=== PATIENT | male | born 1945 | race Caucasian/White ===

== ENCOUNTER 2022-03-13 15:49 | Outpatient (CLI) | payer MEDICARE, OTHER, SELFPAY ==
[2022-03-13 21:45] LABS: Digoxin* < 0.4 ng/mL (0.8-2.0)
== END 2022-03-13 15:50 | disposition home or self-care (01) ==
LOC: LKVREF 15:50
PROVIDERS: PCP Family Medicine; Visit Provider Family Medicine
DX: I48.0 Paroxysmal atrial fibrillation (principal)
CPT/HCPCS: 80162

== ENCOUNTER 2022-03-23 09:01 | Outpatient (CLI) | payer MEDICARE, OTHER, SELFPAY ==
--- NOTE | 2022-03-23 09:15 | FL_ITS ---
Patient: BARTOLOME SIBLEY Facility:?[facility] Patient ID:?[id number] Site Patient ID:?[id number]. Site :?[id number] Study:?XRay-ST Neck MODIFIED BARIUM SWALLOW - DR GRIJALVA TO R-03/23/2022 9:39:14 AM Ordering Physician:EDWARDO Final Report: INDICATION: FLUID ASPIRATION TECHNIQUE: Modified barium swallow. Fluoroscopic time 53 seconds. COMPARISON: None FINDINGS/IMPRESSION: Anatomical structures are normal. Swallowing mechanism appears within normal limits. No episodes of penetration or aspiration. No significant findings. Dictated by Ernst Grijalva MD @ 03/23/2022 9:44:52 AM Signed by:?Ernst Grijalva MD @03/23/2022 9:44:52 AM (Electronic Signature)
--- NOTE | 2022-03-23 10:05 | SLP.EVAL ---
Dr. Simpson Please review, sign and return Thank you Ashwini Mesa MICROMATIC HONE OPERATOR MICROMATIC HONE OPERATOR Eval MICROMATIC HONE OPERATOR Eval Start: 03/23/22 09:53 Freq: Status: Active Protocol: Document 03/23/22 09:54 Kady (Rec: 03/23/22 10:04 Kady [id number]) E-signed By Ashwini Mesa CCC, MICROMATIC HONE OPERATOR MICROMATIC HONE OPERATOR System Review History & Reason For Referral Type of Speech Evaluation Modified Barium Swallow Evaluation Rehabilitation Order Evaluation Date of Order 03/13/22 Reason for Referral fluid asperation Treatment Diagnosis Dysphagia Patient Orientation Orientation & Mental Status Within normal limits MICROMATIC HONE OPERATOR Initial Assessment/POC Subjective Information Subjective/Pain Comment Patient independently ambulated to the xray suite with the use of his cane. He is pleasant and cooperative. Assessment & Impression Assessment/Impression Patient is a 76 year old male referred for a modified barium swallow study due to intermittent choking episodes with water or iced tea. He reports it does not happen with food. He reports it started happening about 3 months ago after he had hip surgery. He also reports that after surgery he started to have reflux and started to belch. He reported this to his surgeon who said this was not uncommon at all. ORAL MOTOR FUNCTION AND DENTITION Patient exhibits adequate tongue and lip movement and adequate natural dentition. THIN LIQUID Patient took sips of thin liquid by cup. There was flash penetration that was ejected and no aspiration occurred on any trial of thin liquid. PUREE Patient able to manipulate and swallow without penetration, aspiration or residue. MUFFIN AND COOKIE WITH BARIUM PUREE Patient given separate trials of muffin and cookie each mixed with barium. He was able to chew and swallow without penetration, aspiration or residue. IMPRESSIONS AND RECOMMENDATIONS Patient exhibits some flash penetration with thin liquids that is ejected well each time . No aspiration occurred with any consistency. Recommended patient take small sips and avoid any distraction when drinking. It is unclear what is causing these episodes. Therapist Signature & License # I Certify That Therapy Services Provided Therapist Signature & License Number Ashwini Mesa CCC-MICROMATIC HONE OPERATOR,# [id number] Physician Signature Signature of Physician Indicates Medically Needed Services Physician Signature & Date Required Please Sign/Date Here Speech/Language Pathology Billing Units Billing Units Eval Swallow Motion Fluoro 1
== END 2022-03-23 09:02 | disposition home or self-care (01) ==
LOC: RAD 09:03
PROVIDERS: PCP Family Medicine; Visit Provider Family Medicine
DX: T17.908A Unspecified foreign body in respiratory tract, part unspecified causing other injury, initial encounter (principal)
CPT/HCPCS: 74230; 92611

== ENCOUNTER 2022-08-26 10:25 | Emergency (ER) | payer MEDICARE, OTHER, SELFPAY ==
[2022-08-26 11:07] VITALS: BP 120/82; PULSE 114; RESP 18; TEMP 36.3; O2SAT 98; BMI 28.2
--- NOTE | 2022-09-02 04:14 | ED_ITS ---
HPI - Eye Problem General Chief complaint: Eye Problems Stated complaint: LT eye bleeding and INR high Time Seen by Provider: 08/26/22 11:44 History of Present Illness HPI Narrative: 76-year-old man presents to the emergency department with spouse with concern of bleeding in his left eye. Painless. Eye movement is not make it hurt more. No visual disturbance. Woke with this today. Is anticoagulated with Coumadin for atrial fibrillation. INR he says he has been trending up; today was measured at 3.3. He does get lab measurements as well as does some home monitoring. There is no known trauma. Mr. Arriaga keeps exceptional track of his INR and Coumadin dosing. Has initiated chemotherapy for lymphoma. Related Data Home Medications Medication Instructions Recorded Confirmed Diabetic Test Strips 01/09/22 08/15/22 acetaminophen 650 mg 1,300 mg PO BID 01/09/22 08/15/22 tablet,extended release diclofenac sodium 1 % topical gel 2 g topical QID 03/13/22 08/15/22 (Voltaren Arthritis Pain) multivitamin (Daily Multi-Vitamin 1 tab PO QDAY 03/13/22 08/15/22 tablet) undecylenic acid 25 % topical 1 applic topical BID 03/13/22 08/15/22 solution (Fungi-Nail) insulin glargine 100 unit/mL (3 90 unit subcut .Bedtime 05/22/22 08/15/22 mL) subcutaneous pen aspirin 81 mg chewable tablet 81 mg PO QDAY 07/07/22 08/15/22 clopidogrel 75 mg tablet 75 mg PO QDAY 07/07/22 08/15/22 ketoconazole 2 % topical cream 1 applic topical QDAY 07/07/22 08/15/22 nitroglycerin 0.4 mg sublingual 0.4 mg sublingual 07/11/22 08/15/22 tablet acyclovir 400 mg tablet 400 mg PO BID 08/15/22 08/15/22 allopurinol 300 mg tablet 300 mg PO QDAY 08/15/22 08/15/22 blood sugar diagnostic (Anytime DDuch #10 ea 08/15/22 08/15/22 Verio test strips) lancets 33 gauge (Anytime DDuch Low #100 ea 08/15/22 08/15/22 Plus Lancet) ondansetron HCl 8 mg tablet 8 mg PO .PRN PRN 08/15/22 08/15/22 prochlorperazine maleate 5 mg 5 mg PO PRN 08/15/22 08/15/22 tablet Previous Rx's Medication Instructions Recorded hydrochlorothiazide 12.5 mg capsule 25 mg PO DAILY #180 caps 02/17/22 losartan 100 mg tablet 100 mg PO DAILY #90 tabs 03/31/22 pen needle, diabetic 32 gauge x #100 ea 04/14/2232 (Easy Comfort Pen Zwingle) lancets (Fingerstix Lancets) #200 ea 06/07/22 carvedilol 6.25 mg tablet (Coreg) 6.25 mg PO BID #180 tabs 07/26/22 furosemide 20 mg tablet (Lasix) 20 - 40 mg PO QAM PRN edema #60 07/28/22 tabs amoxicillin 500 mg capsule See Rx Instructions .Route 07/31/22 .COMPLEX #4 caps warfarin 5 mg tablet See Rx Instructions .Route 08/29/22 .COMPLEX #45 tabs Allergies Allergy/AdvReac Type Severity Reaction Status Date / Time lovastatin Allergy Severe Throat and Verified 08/15/22 15:33 chest tightness niacin Allergy Severe Throat and Verified 08/15/22 15:33 chest tightness duloxetine Allergy Intermediate throat and Verified 08/15/22 15:33 chest tightness sertraline Allergy Intermediate Dizzy, Verified 08/15/22 15:33 headaches and not right in the head methyldopa Allergy Mild Chills, Verified 08/15/22 15:33 fever Vjtysrx-RNM-ReQ Reductase Allergy Verified 08/15/22 15:33 Inhibitor COVID-19 (Adenovirus) Vaccine Allergy Severe Myocarditis Uncoded 08/15/22 15:33 paper tape AdvReac Severe Takes skin Uncoded 08/15/22 15:33 off Review of Systems Status of ROS: Reports: 6 or more systems reviewed and unremarkable except as noted in History and below [facility] Medical History Abdominal pain Edema of lower extremity Fatigue Fever Lymphoma Narcolepsy 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 Osteoarthritis of multiple joints Pleural effusion Pleural effusion Serum creatinine raised Thrombocytopenia (~08/17/15) Weight loss Surgical History History of carpal tunnel surgery History of discectomy (~08/2016) History of lumbar fusion (09/09/12) History of nasal septoplasty History of umbilical hernia repair Status post tonsillectomy and adenoidectomy Status post total hip replacement, 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 Of good energy. Head is atraumatic. Cranial nerves 2-12 look to be intact. PERRLA. Extraocular movements are full appear to be nonpainful. There is a mild but somewhat expansive medial left scleral subconjunctival hemorrhage. Const: Documenting provider has reviewed patient's vital signs: yes Course Vital Signs Vital signs: Initial Vital Signs Temperature 97.3 F L 08/26/22 11:07 Temperature Source Temporal Artery Scan 08/26/22 11:07 Pulse Rate 114 H 08/26/22 11:07 Respiratory Rate 18 08/26/22 11:07 Blood Pressure 120/82 08/26/22 11:07 Blood Pressure Mean 94 08/26/22 11:07 Blood Pressure Position Sitting 08/26/22 11:07 Pulse Oximetry 98 08/26/22 11:07 Oxygen Delivery Method 08/26/22 11:07 Vital Signs Temperature 97.3 F L 08/26/22 11:07 Pulse Rate 114 H 08/26/22 11:07 Respiratory Rate 18 08/26/22 11:07 Blood Pressure 120/82 08/26/22 11:07 Pulse Oximetry 98 08/26/22 11:07 Oxygen Delivery Method 08/26/22 11:07 Temperature 97.3 F L 08/26/22 11:07 Pulse Rate 114 H 08/26/22 11:07 Respiratory Rate 18 08/26/22 11:07 Blood Pressure 120/82 08/26/22 11:07 Pulse Oximetry 98 08/26/22 11:07 Oxygen Delivery Method 08/26/22 11:07 MDM - Eye Problem MDM Narrative Medical decision making narrative: And think any intervention is needed on this subconjunctival hemorrhage. This is not lateral and INR is not extremely high. We discussed management of INR I think related more to escalating/trending dosing as opposed to reversal. There was discussion by Mr. Arriaga and his of bringing it back down by eating kale though I think that would be a little less predictable. I do not think that any modification of coagulation is needed beyond adjusting mgs of Coumadin over this next week. It is likely that chemotherapy is playing a role in excessive anticoagulation. See patient discharge plan Discharge Plan Discharge Clinical Impression: Subconjunctival hemorrhage, Anticoagulated Patient Disposition: Home w/ Parent or Adult Condition: Stable Additional Instructions: Yes given the chemotherapy this, management of anticoagulation, might be more of a challenge. I think for now it might be a good idea to return to your prior schedule of 3 days of 5 mg and 4 days of 7.5 mg of Coumadin. If irritated you can put generic eye ointment in any time for lubrication. Be evaluated if you begin to see double vision, have pain with eye movement, feel that you are not able to move your eye side to side fully. Prescriptions: No Action acetaminophen 650 mg tablet extended release 1,300 mg PO BID (DME) Diabetic Test Strips Misc See Rx Instructions .Route Rx Instructions: As directed nitroglycerin 0.4 mg tablet, sublingual 0.4 mg sublingual Label Comments: Place 1 tablet (0.4 mg total) under the tongue every 5 (five) minutes as needed for chest pain. May repeat every 5 minutes for up to 3 doses multivitamin [Daily Multi-Vitamin] Tablet 1 tab PO QDAY diclofenac sodium [Voltaren Arthritis Pain] 1 % gel 2 g topical QID Rx Instructions: apply to single elbow, wrist or hand; for hand includes palm/fingers/back of hand Fungi-Nail 25 % solution 1 applic topical BID insulin glargine 100 unit/mL (3 mL) insulin pen 90 unit subcut .Bedtime Rx Instructions: 20 units SC at bedtime for diabetes allopurinol 300 mg tablet 300 mg PO QDAY acyclovir 400 mg tablet 400 mg PO BID ondansetron HCl 8 mg tablet 8 mg PO .PRN PRN prochlorperazine maleate 5 mg tablet 5 mg PO PRN Label Comments: TAKE 2 TABLETS (10MG) BY MOUTH EVERY 6 HOURS NEEDED FOR NAUSEA OR VOMITING. USE A 2ND LINE OPTION. (DME) lancets [OneTouch Delica Plus Lancet] 33 gauge misc See Rx Instructions .ROUTE .MEDSUPPLY Qty: 100 Label Comments: USE TO TEST BLOOD GLUCOSE THREE TIMES DAILY. Rx Instructions: As directed (DME) OneTouch Verio test strips Strip See Rx Instructions .ROUTE .MEDSUPPLY Qty: 10 Label Comments: USE TO TEST THREE TIMES DAILY. Rx Instructions: As directed hydrochlorothiazide 12.5 mg capsule 25 mg PO DAILY Qty: 180 1RF losartan 100 mg tablet 100 mg PO DAILY Qty: 90 3RF (DME) pen needle, diabetic [Easy Comfort Pen Zwingle] 32 gauge x / needle See Rx Instructions .Route Qty: 100 10RF Rx Instructions: USE TO INJECT INSULIN AND VICTOZA TWICE DAILY (DME) lancets [Fingerstix Lancets] Misc See Rx Instructions .Route Qty: 200 3RF Rx Instructions: As directed, test TID. clopidogrel 75 mg tablet 75 mg PO QDAY Rx Instructions: Take 1 tablet (75 mg total) by mouth daily. For 6 months following stent placement (stent placed 07/04/22) aspirin 81 mg tablet,chewable 81 mg PO QDAY Rx Instructions: Chew 1 tablet (81 mg total) daily. Take 81 mg daily until INR is therapeutic, then discontinue aspirin ketoconazole 2 % cream 1 applic topical QDAY carvedilol [Coreg] 6.25 mg tablet 6.25 mg PO BID Qty: 180 3RF Rx Instructions: must administer with a meal/food furosemide [Lasix] 20 mg tablet 20 - 40 mg PO QAM PRN (Reason: edema) Qty: 60 1RF amoxicillin 500 mg capsule See Rx Instructions .ROUTE .COMPLEX Qty: 4 3RF Dose Instruction: Take 4 capsules (2000mg) by mouth 1 hour prior to dental appointment. Rx Instructions: Take 4 capsules (2000mg) by mouth 1 hour prior to dental appointment. warfarin 5 mg tablet See Rx Instructions .ROUTE .COMPLEX Qty: 45 0RF Protocol: Dose Management Condition: Sunday Dose/Route: 5 mg Instruction: 1 x 5 mg tablet Condition: Sunday Dose/Route: 5 mg Instruction: 1 x 5 mg tablet Condition: Sunday Dose/Route: 5 mg Instruction: 1 x 5 mg tablet Condition: Sunday Dose/Route: 5 mg Instruction: 1 x 5 mg tablet Condition: Dose/Route: 5 mg Instruction: 1 x 5 mg tablet Condition: Sunday Dose/Route: 5 mg Instruction: 1 x 5 mg tablet Condition: Sunday Dose/Route: 5 mg Instruction: 1 x 5 mg tablet Protocol Text: Adjustment Start Date: Sunday09/01/22 INR Value: 2.3 INR Date: 09/01/22 Recheck Date: 09/08/22 Dose Instruction: TAKE 1 TABLET BY MOUTH ON Sunday AND SUNDAY; THEN 1.5 TABLETS ON ALL OTHER DAYS OR DIRECTED. Rx Instructions: TAKE 5MG DAILY DIRECTED. Follow Up/Referrals: Mathew Simpson MD [Primary Care Provider] - Stand Alone Forms: [facility] Info Instructions
== END 2022-08-26 12:14 | disposition home or self-care (01) ==
LOC: ED 12:13
PROVIDERS: Emergency Provider Family Medicine; PCP Family Medicine
DX: H11.32 Conjunctival hemorrhage, left eye (principal); Z79.01 Long term (current) use of anticoagulants
CPT/HCPCS: 99283

== ENCOUNTER 2023-01-22 11:16 | Outpatient (RCR) | payer MEDICARE, OTHER, SELFPAY ==
--- NOTE | 2022-09-06 16:07 | URNOTE ---
Request received for authorization for [place] ([id number]). Prior authorization is not required as services are based on medical necessity and follow Medicare guidelines.
[2022-09-07 11:25] VITALS: BP 120/72; PULSE 97; RESP 16; TEMP 36.6; O2SAT 96
[2022-09-07] MEDS: PEGFILGRASTIM 6 MG/0.6 ML SYRINGE SUBCUT (11:29)
[2022-09-07 11:53] LABS: Hematocrit 34.8 % (37.0-53.0); Hemoglobin* 11.7 gm/dL (13.5-17.5); Mean Corpuscular HGB Conc 34 gm/dL (32-36); Mean Corpuscular Hemoglobin 28 pg (26-34); Mean Corpuscular Volume 83 fL (80-100); White Blood Count* 7.23 K/uL (4.50-11.00)
[2022-09-07 11:54] LABS: Basophils Percent Auto 0.1 % (0.0-3.0); Eosinophils Percent Auto 0.1 % (0.0-7.0); Lymphocytes Percent Auto 1.9 % (20-44); Monocytes Percent Auto 4.7 % (0.0-11.0); Neutrophils Percent Auto 92.9 % (42.0-72.0); Platelet Count* 80 K/uL (140-440); RDW Coefficient of Variation % 16.5 % (11.5-15.5); Slide Review Reflex No
[2022-09-07 11:58] LABS: INR 2.58 (0.91-1.10); Prothrombin Time 28.9 Seconds
[2022-11-03 14:43] VITALS: BP 131/88; PULSE 122; RESP 16; TEMP 36.1; O2SAT 97
[2022-11-03] MEDS: PEGFILGRASTIM 6 MG/0.6 ML SYRINGE SUBCUT (14:48)
[2022-12-01 13:30] VITALS: BP 117/69; PULSE 67; RESP 16; TEMP 36.1; O2SAT 97
[2022-12-01] MEDS: PEGFILGRASTIM 6 MG/0.6 ML SYRINGE SUBCUT (13:50)
[2023-01-08 11:18] LABS: Basophils Percent Auto 2.1 % (0.0-3.0); Eosinophils Percent Auto 19.3 % (0.0-7.0); Hematocrit 32.7 % (37.0-53.0); Immature Granulocytes Pct Auto 1.4 %; Mean Corpuscular HGB Conc 34 gm/dL (32-36); Mean Corpuscular Hemoglobin 30 pg (26-34); Mean Corpuscular Volume 90 fL (80-100); Neutrophils Percent Auto 47.2 % (42.0-72.0); Platelet Count* 62 K/uL (140-440); RDW Coefficient of Variation % 14.7 % (11.5-15.5); Red Blood Count 3.65 m/uL (4.30-5.90)
[2023-01-08 11:33] LABS: INR 1.73 (0.91-1.10); Prothrombin Time 21.2 Seconds
[2023-01-08 12:24] LABS: Slide Review Reflex Yes
[2023-01-08 12:27] LABS: Slide Review Acceptable Review (Acceptable)
[2023-01-22 11:56] LABS: Basophils Percent Auto 1.4 % (0.0-3.0); Eosinophils Percent Auto 14.4 % (0.0-7.0); Hematocrit 23.4 % (37.0-53.0); Immature Granulocytes Pct Auto 7.5 %; Lymphocytes Percent Auto 6.2 % (20-44); Mean Corpuscular HGB Conc 33 gm/dL (32-36); Mean Corpuscular Hemoglobin 30 pg (26-34); Mean Corpuscular Volume 91 fL (80-100); Monocytes Percent Auto 16.4 % (0.0-11.0); Neutrophils Percent Auto 54.1 % (42.0-72.0); Platelet Count* 75 K/uL (140-440); Red Blood Count 2.58 m/uL (4.30-5.90)
[2023-01-22 12:10] LABS: Hemoglobin* 7.7 gm/dL (13.5-17.5); INR 1.05 (0.91-1.10); Prothrombin Time 14.3 Seconds; White Blood Count* 1.46 K/uL (4.50-11.00)
[2023-01-22 12:11] LABS: Slide Review Reflex Yes
[2023-01-22 12:13] LABS: Slide Review Acceptable Review (Acceptable)
== END 2023-03-06 23:59 | disposition home or self-care (01) ==
LOC: CCIC 11:16
PROVIDERS: PCP Family Medicine; Referring Provider Family Medicine; Visit Provider Clinical Nurse Specialist
DX: C82.18 Follicular lymphoma grade II, lymph nodes of multiple sites (principal); I48.11 Longstanding persistent atrial fibrillation; Z79.01 Long term (current) use of anticoagulants
CPT/HCPCS: 36415; 85025; 85610; 96372; J2506

== ENCOUNTER 2023-04-16 08:04 | Outpatient (CLI) | payer MEDICARE, OTHER, SELFPAY | END 2023-04-16 08:05 | disposition home or self-care (01) | LOC: AMB 04-21 16:56 | PROVIDERS: PCP Family Medicine; Visit Provider Student in an Organized Health Care Education/Training Program | DX: R53.1 Weakness (principal) | CPT/HCPCS: A0998 ==

== ENCOUNTER 2023-04-16 17:04 | Inpatient (IN) | payer MEDICARE, OTHER, SELFPAY ==
[2023-04-16 17:31] VITALS: BP 170/71; PULSE 73; RESP 32; TEMP 39; O2SAT 96
--- NOTE | 2023-04-16 17:56 | CRLHL7_ITS ---
For Patients: As a result of the Cures Act, medical imaging exams and procedure reports are released immediately into your electronic medical record. You may view this report before your referring provider. If you have questions, please contact your health care provider. Indication: Fever Technique: Chest 1 view Comparison: Chest x-ray 07/11/2022 Findings/Impression: Cardiovascular and mediastinum: Globular cardiomegaly with atherosclerotic calcification. Lungs and pleural space: Small left pleural effusion with retrocardiac consolidation consistent with atelectasis or pneumonia. Compared to the prior examination, the left pleural effusion is smaller. Some bronchial wall thickening noted which can be seen in bronchitis or reactive airways disease. Bones and soft tissues: No acute findings. Dictated by Fab Walsh MD @ 04/16/2023 7:53:58 PM (Electronically Signed)
[2023-04-16] MEDS: ACETAMINOPHEN 500 MG TABLET 1000 MG PO (18:12)
[2023-04-16 19:12] LABS: Basophils Percent Auto 1.7 % (0.0-3.0); Eosinophils Percent Auto 3.4 % (0.0-7.0); Hematocrit 30.2 % (37.0-53.0); Hemoglobin* 9.2 gm/dL (13.5-17.5); Immature Granulocytes Pct Auto 8.5 %; Lymphocytes Percent Auto 6.8 % (20-44); Mean Corpuscular HGB Conc 31 gm/dL (32-36); Mean Corpuscular Hemoglobin 23 pg (26-34); Mean Corpuscular Volume 75 fL (80-100); Monocytes Percent Auto 20.5 % (0.0-11.0); Neutrophils Percent Auto 59.1 % (42.0-72.0); Platelet Count* 107 K/uL (140-440); RDW Coefficient of Variation % 15.2 % (11.5-15.5); Red Blood Count 4.05 m/uL (4.30-5.90)
[2023-04-16 19:19] LABS: Lactate Sepsis w/Reflex* 1.3 mmol/L (0.5-1.9); Slide Review Reflex Yes; White Blood Count* 1.17 K/uL (4.50-11.00)
--- NOTE | 2023-04-16 19:31 | ED.GENADULT ---
HPI - General Adult General Date Seen: 04/16/23 Chief complaint: Fever Stated complaint: Fall, worse thru the day, difficulty breathing Time Seen by Provider: 04/16/23 17:44 Source: patient and family Mode of arrival: ambulatory Limitations: no limitations History of Present Illness HPI narrative: Patient is a 77-year-old male with complex past medical history including cardiac amyloid apathy, non-Hodgkin's lymphoma, and chronic pleural effusion which she gets drained at [facility] every month or so. His daughter tells me that they believe the effusion is perhaps related to the cardiac amyloid apathy. He has had persistent pancytopenia since apparently August or September of this year, he is not currently undergoing any kind of treatment for his lymphoma. A couple of days ago he developed a low-grade cough, yesterday he developed more weakness, had a fall overnight when he tried to get up and go to the bathroom, and today his insisted that he come in and be seen. He was supposed to get blood drawn today but felt too poorly to actually get that done. His last thoracentesis was about 4 weeks ago. His is sick with respiratory symptoms, she is apparently being seen in urgent care at the moment, unknown COVID status at this point. Patient has not had vomiting or diarrhea, denies abdominal pain, has had a little bit of nausea. No urinary symptoms. No shortness of breath or chest pain. Was not aware of a fever but had one here. He does not smoke, does not drink. Here today with his daughter. He lives at home with his . Related Data Home Medications Medication Instructions Recorded Confirmed acetaminophen 650 mg 1,300 mg PO BID 01/09/22 04/17/23 tablet,extended release diclofenac sodium 1 % topical gel 2 g topical QID PRN 03/13/22 04/17/23 (Voltaren Arthritis Pain) multivitamin (Daily Multi-Vitamin 1 tab PO DAILY 03/13/22 04/17/23 tablet) aspirin 81 mg chewable tablet 81 mg PO DAILY 07/07/22 04/17/23 ketoconazole 2 % topical cream 1 applic topical DAILY PRN 07/07/22 04/17/23 nitroglycerin 0.4 mg sublingual 0.4 mg sublingual Q5M PRN 07/11/22 04/17/23 tablet acyclovir 400 mg tablet 400 mg PO BID 08/15/22 04/17/23 torsemide 20 mg tablet 20 mg PO DAILY 03/02/23 04/17/23 escitalopram oxalate 10 mg tablet 10 mg PO DAILY 04/17/23 04/17/23 (Lexapro) insulin glargine 100 unit/mL (3 30 unit subcut HS 04/17/23 04/17/23 mL) subcutaneous pen manganese 15 mg capsule 15 mg PO DAILY 04/17/23 04/17/23 pantoprazole 40 mg tablet,delayed 40 mg PO BID 04/17/23 04/17/23 release Previous Rx's Medication Instructions Recorded amoxicillin 500 mg capsule See Rx Instructions .Route 07/31/22 .COMPLEX #4 caps carvedilol 3.125 mg tablet 9.375 mg (3 x 3.125 mg) PO BID 01/16/23 #540 tabs losartan 100 mg tablet 100 mg PO DAILY #90 tabs 03/30/23 Allergies Allergy/AdvReac Type Severity Reaction Status Date / Time lovastatin Allergy Severe Throat and Verified 03/30/23 12:50 chest tightness niacin Allergy Severe Throat and Verified 03/30/23 12:50 chest tightness duloxetine Allergy Intermediate throat and Verified 03/30/23 12:50 chest tightness sertraline Allergy Intermediate Dizzy, Verified 03/30/23 12:50 headaches and not right in the head methyldopa Allergy Mild Chills, Verified 03/30/23 12:50 fever Nyuaqpk-PTG-YzW Reductase Allergy Verified 03/30/23 12:50 Inhibitor COVID-19 (Adenovirus) Vaccine Allergy Severe Myocarditis Uncoded 03/30/23 12:50 paper tape AdvReac Severe Takes skin Uncoded 03/30/23 12:50 off Review of Systems Status of ROS: Reports: 10 or more systems reviewed and unremarkable except as noted in History and below [facility] Medical History (Updated 04/17/23 @ 11:02 by Stephanie Reaves PA-C) Urinary incontinence ?R32 - Unspecified urinary incontinence (ICD-10) Febrile neutropenia ?D70.9 - Neutropenia, unspecified (ICD-10) ?R50.81 - Fever presenting with conditions classified elsewhere (ICD-10) Cardiac dysrhythmia, unspecified ?I49.9 - Cardiac arrhythmia, unspecified (ICD-10) GI (gastrointestinal bleed) ?K92.2 - Gastrointestinal hemorrhage, unspecified (ICD-10) Depression ?F32.A - Depression, unspecified (ICD-10) BPH (benign prostatic hyperplasia) ?N40.0 - Benign prostatic hyperplasia without lower urinary tract symptoms (ICD-10) Cardiac amyloidosis ?E85.4 - Organ-limited amyloidosis (ICD-10) ?I43 - Cardiomyopathy in diseases classified elsewhere (ICD-10) Depression ?F32.A - Depression, unspecified (ICD-10) 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 ?I24.0 - Acute coronary thrombosis not resulting in myocardial infarction (ICD-10) Pleural effusion ?J90 - Pleural effusion, not elsewhere classified (ICD-10) Pleural effusion ?J90 - Pleural effusion, not elsewhere classified (ICD-10) Lymphoma ?C85.90 - Non-Hodgkin lymphoma, unspecified, unspecified site (ICD-10) Narcolepsy ?G47.419 - Narcolepsy without cataplexy (ICD-10) Weight loss ?R63.4 - Abnormal weight loss (ICD-10) Thrombocytopenia (~08/17/15) ?D69.6 - Thrombocytopenia, unspecified (ICD-10) Serum creatinine raised ?R79.89 - Other specified abnormal findings of blood chemistry (ICD-10) Osteoarthritis of multiple joints ?M15.9 - Polyosteoarthritis, unspecified (ICD-10) Fever ?R50.9 - Fever, unspecified (ICD-10) Fatigue ?R53.83 - Other fatigue (ICD-10) Edema of lower extremity ?R60.0 - Localized edema (ICD-10) Abdominal pain ?R10.9 - Unspecified abdominal pain (ICD-10) Surgical History History of percutaneous coronary intervention ?Z98.61 - Coronary angioplasty status (ICD-10) History of lumbar fusion (09/09/12) ?Z98.1 - Arthrodesis status (ICD-10) History of discectomy (~08/2016) ?Z98.890 - Other specified postprocedural states (ICD-10) Status post total hip replacement, 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) ?Z96.642 - Presence of left artificial hip joint (ICD-10) Status post tonsillectomy and adenoidectomy ?Z90.89 - Acquired absence of other organs (ICD-10) History of umbilical hernia repair ?Z98.890 - Other specified postprocedural states (ICD-10) ?Z87.19 - Personal history of other diseases of the digestive system (ICD-10) History of nasal septoplasty ?Z98.890 - Other specified postprocedural states (ICD-10) History of carpal tunnel surgery ?Z98.890 - Other specified postprocedural states (ICD-10) Family History (Updated 04/16/23 @ 23:28 by Liam Davis MD) Father Colon cancer Lung cancer Mother Diabetes FH: thyroid cancer Kidney disease High blood pressure Social History (Updated 04/16/23 @ 23:29 by Liam Davis MD) Narrative: He lives with his . He gets his specialty medical care at [facility]. He does not smoke. He does not drink alcohol. What is your current living situation?: I presently have a place to live Problems where you live: no known problems Problems where you live details: na In the past 12 months, utilities in danger of being shut off: no In past 12 months, lack of transportation kept you from medical appts, meetings, work, or getting things needed for daily living: no In the past 12 mos, have been you worried that your food would run out before you had money to buy more?: never true In the past 12 mos, the food you bought just didn't last and you didn't have money to buy more?: never true Highest level of school completed/degree received: Bachelor's degree Smoking Status: Never smoker Do you use any of these nicotine containing products: None Second hand tobacco smoke exposure: No How often do you have a drink containing alcohol: never How often do you have six or more drinks on one occasion: Never AUDIT-C Alcohol total score: 0 Non-prescribed substance use: denies use Caffeine: Yes How often does anyone, including family, friends and others, physically hurt you: never How often does anyone, including family, friends and others, insult or talk down to you: never How often does anyone, including family, friends and others, threaten you with harm: never How often does anyone, including family, friends and others, scream or curse at you: never Little interest or pleasure in doing things: nearly every day Feeling down, depressed, or hopeless: nearly every day service: No Exam Narrative: Exam Narrative: Vital signs as noted above. In general, an alert, nontoxic elderly male. He is breathing easily, looks somewhat fatigued. Head: Normocephalic, atraumatic. Eyes: Pupils are equal reactive. Extraocular movements are full. Conjunctivae are normal. ENT: Mucous membranes are moist. Neck: Supple without lymphadenopathy. Heart: Regular rate and rhythm. He has a soft systolic murmur heard best at the apex. Lungs: Clear bilaterally. No increased work of breathing, crackles or wheezes. Abdomen: Soft and nontender. No organomegaly. Extremities: Well perfused. No edema. No calf tenderness. Pulses intact. Neurologic: Patient is alert and oriented to person and place. Speech is fluent. Face is symmetric. Moves all extremities equally. Affect: Normal. Skin: Warm and dry. Well perfused. Const: Vital Signs, click to edit/add: Vital Signs - 24 hr 04/16/23 17:31 04/16/23 20:39 04/16/23 21:29 Temperature 102.2 F H 99.0 F 98.5 F Pulse Rate [Pulse Oximeter] 73 68 Respiratory Rate 32 H 18 Blood Pressure [Ri ght Upper Arm] 170/71 H 135/57 L Pulse Oximetry 96 95 Oxygen Delivery Me thod Room Air Room Air 04/16/23 22:29 Temperature 98.1 F Pulse Rate [Pulse Oximeter] 66 Respiratory Rate 18 Blood Pressure [Ri ght Upper Arm] 135/63 Pulse Oximetry 97 Oxygen Delivery Me thod Room Air Documenting provider has reviewed patient's vital signs: yes Course Course ED Course: Following initial evaluation, patient had labs drawn including blood cultures. COVID, influenza and RSV swabs were obtained. Given that his has been sick and he has had cough and fever otherwise looked nontoxic I elected to wait and see how the COVID look prior to starting antibiotics. Ultimately, his COVID test did return negative as did his 's in urgent care. Had Tylenol here, temperature came down to 98.5. Vital signs remain reassuring. Labs are notable for neutropenia, his white blood cell count was 1.17, it is around about 1.3 for the past number of months. Hemoglobin 9, ANC of 700. Metabolic panel is normal, lactate 1.3, LFTs normal, CRP elevated at 3.7. Urinalysis was notable for 0 red cells and 0 white cells. I did a chest x-ray, he probably has a little bit of an effusion on the left, difficult in no whether there might be infiltrate there is well. Final radiology read is this follows:Findings/Impression: Cardiovascular and mediastinum: Globular cardiomegaly with atherosclerotic calcification. Lungs and pleural space: Small left pleural effusion with retrocardiac consolidation consistent with atelectasis or pneumonia. Compared to the prior examination, the left pleural effusion is smaller. Some bronchial wall thickening noted which can be seen in bronchitis or reactive airways disease. I have talked to the patient and his daughter. I think he is going to require hospitalization for treatment of neutropenic fever, source TBD. Discussed with them that I think a CT of the chest would be helpful to delineate whether he has a pneumonia, will go ahead and just scan his abdomen as well. Given Zosyn 3.[address] results as follows:IMPRESSION: Moderate to large simple left pleural effusion. Patchy opacity in the left lower lobe, favor compressive atelectasis over infection. Small amount of high density fluid around the spleen and left kidney of unknown etiology. No splenic or renal laceration identified. Coronary artery disease. Splenic hemangioma. Cholelithiasis. Status post left hip arthroplasty and posterior fusion hardware at L4-L5. Plan admission to hospitalist service. May need thoracentesis here both therapeutic as well as to rule out empyema. Hemodynamically stable, no acute new complaints. Vital Signs Vital signs: Initial Vital Signs Temperature 102.2 F H 04/16/23 17:31 Temperature Source Oral 04/16/23 17:31 Pulse Rate 73 04/16/23 17:31 Pulse Rhythm Regular 04/16/23 17:31 Respiratory Rate 32 H 04/16/23 17:31 Blood Pressure 170/71 H 04/16/23 17:31 Blood Pressure Mean 104 04/16/23 17:31 Blood Pressure Position Sitting 04/16/23 17:31 Pulse Oximetry 96 04/16/23 17:31 Oxygen Delivery Method Room Air 04/16/23 17:31 Vital Signs Temperature 102.2 F H 04/16/23 17:31 Pulse Rate 73 04/16/23 17:31 Respiratory Rate 32 H 04/16/23 17:31 Blood Pressure 170/71 H 04/16/23 17:31 Pulse Oximetry 96 04/16/23 17:31 Oxygen Delivery Method Room Air 04/16/23 17:31 Temperature 98.6 F 04/17/23 11:24 Pulse Rate 68 04/17/23 11:24 Respiratory Rate 16 04/17/23 11:24 Blood Pressure 121/59 L 04/17/23 11:24 Pulse Oximetry 96 04/17/23 11:24 Oxygen Delivery Method Room Air 04/17/23 11:24 Medical Decision Making Lab Data Labs: Lab Results 04/16/23 04/16/23 Range/Units 19:00 20:24 WBC 1.17 L* (4.50-11.00) K/uL RBC 4.05 L (4.30-5.90) m/uL Hgb 9.2 L (13.5-17.5) gm/dL Hct 30.2 L (37.0-53.0) % MCV 75 L (80-100) fL MCH 23 L (26-34) pg MCHC 31 L (32-36) gm/dL RDW Coeff of Shukri 15.2 (11.5-15.5) % Plt Count 107 L (140-440) K/uL Neut % (Auto) 59.1 (42.0-72.0) % Lymph % (Auto) 6.8 L (20-44) % [place] % (Auto) 20.5 H (0.0-11.0) % Eos % (Auto) 3.4 (0.0-7.0) % Baso % (Auto) 1.7 (0.0-3.0) % Neut # (Auto) 0.70 L (1.7-7.0) K/uL Lymph # (Auto) 0.10 L (0.90-2.90) K/uL [place] # (Auto) 0.20 (0.00-0.90) K/UL Eos # (Auto) 0.00 (0.00-0.50) K/uL Baso # (Auto) 0.00 (0.00-0.30) K/uL Abs Immat Gran (auto) 0.10 (0.00-0.30) K/uL Imm/Tot Granulo (auto) 8.5 % Diff Slide Review Acceptable Review (Acceptable) Sodium 135 (135-149) mmol/L Potassium 4.1 (3.6-5.1) mmol/L Chloride 100 (96-114) mmol/L Carbon Dioxide 27 (20-32) mmol/L Anion Gap 8 (7-15) mEq/L BUN 18 (7-30) mg/dL Creatinine 1.4 (0.5-1.5) mg/dL Estimated Creat Clear 44.90 Estimated GFR 51 ml/min Glucose 165 H (60-115) mg/dL Lactate 1.3 (0.5-1.9) mmol/L Calcium 8.8 (8.4-10.6) mg/dL Total Bilirubin 0.8 (0.1-1.5) mg/dL Direct Bilirubin 0.0 (0.0-0.5) mg/dL AST 34 (12-35) U/L ALT 16 (4-50) U/L Alkaline Phosphatase 100 (40-150) U/L C-Reactive Protein 3.7 H (0.5-1.0) mg/dL Total Protein 6.2 (6.0-8.3) g/dL Albumin 3.8 (3.3-5.0) g/dL Urine Color Yellow (Yellow) Urine Appearance Clear (Clear) Urine pH 7.0 (5.0-8.5) Ur Specific [place] 1.020 (1.000-1.030) Urine Protein 2+ A (Negative) Urine Glucose (UA) Negative (Negative) Urine Ketones Negative (Negative) Urine Blood Negative (Negative) Urine Nitrite Negative (Negative) Urine Bilirubin Negative (Negative) Urine Urobilinogen 0.2 (0.2-1.0) Ur Leukocyte Esterase Negative (Negative) Urine RBC 0-2 (0-2) Urine WBC 0-2 (0-5) Ur Squamous Epith Cells Few (None-Few) Urine Bacteria None (None) Urine L. pneumophilia Ag L. pneumo Negative (Negative) Urine Strep pneumoniae Ag S. pneumo Negative (Negative) SARS-CoV-2 (PCR) Negative SARS-CoV-2 (Negative) Influenza Type A (PCR) Negative PCR FLU A (Negative) Influenza Type B (PCR) Negative PCR FLU B (Negative) RSV (PCR) Negative PCR RSV (Negative)
[2023-04-16 19:35] LABS: Albumin* 3.8 g/dL (3.3-5.0); Chloride* 100 mmol/L (96-114); Sodium* 135 mmol/L (135-149)
[2023-04-16 19:36] LABS: Potassium* 4.1 mmol/L (3.6-5.1)
[2023-04-16 19:38] LABS: Alkaline Phosphatase* 100 U/L (40-150); Anion Gap 8 mEq/L (7-15); Aspartate Amino Transferase* 34 U/L (12-35); Bilirubin Total* 0.8 mg/dL (0.1-1.5); Blood Urea Nitrogen* 18 mg/dL (7-30); Carbon Dioxide* 27 mmol/L (20-32); Creatinine* 1.4 mg/dL (0.5-1.5); Estimated Glomerular Filt Rate 51 ml/min; Glucose* 165 mg/dL (60-115); Total Protein* 6.2 g/dL (6.0-8.3)
[2023-04-16 19:39] LABS: Alanine Aminotransferase* 16 U/L (4-50); Calcium* 8.8 mg/dL (8.4-10.6)
[2023-04-16 19:41] LABS: C Reactive Protein* 3.7 mg/dL (0.5-1.0)
[2023-04-16 19:44] LABS: PCR FLU A Negative PCR FLU A (Negative); PCR FLU B Negative PCR FLU B (Negative); PCR RSV Negative PCR RSV (Negative)
[2023-04-16 19:46] LABS: SARS PCR* Negative SARS-CoV-2 (Negative)
[2023-04-16 20:29] LABS: Appearance Urine Clear (Clear); Bilirubin Urine Negative (Negative); Blood Urine Negative (Negative); Color Urine Yellow (Yellow); Glucose Urine Negative (Negative); Ketones Urine Negative (Negative); Leukocyte Esterase Urine Negative (Negative); Nitrite Urine Negative (Negative); Protein Urine 2+ (Negative); Urobilinogen Urine 0.2 (0.2-1.0)
[2023-04-16 20:39] VITALS: BP 135/57; PULSE 68; RESP 18; TEMP 37.2; O2SAT 95
--- NOTE | 2023-04-16 20:43 | ED.NURSE ---
Report given to STAN Villalba.
--- NOTE | 2023-04-16 20:44 | CRLHL7_ITS ---
For Patients: As a result of the Century Cures Act, medical imaging exams and procedure reports are released immediately into your electronic medical record. You may view this report before your referring provider. If you have questions, please contact your health care provider. INDICATION: Fever, neutropenia TECHNIQUE: CT chest, abdomen and pelvis acquired with 98 cc Isovue 370 IV contrast. COMPARISON: March 21, 2019 FINDINGS: Chest: Cardiovascular structures: Heart size is normal. Coronary artery calcifications. Mitral annular calcifications. Thoracic aorta and main pulmonary artery are normal in caliber. Mediastinum and sriram: No mass or adenopathy. Lungs: Patchy opacity in the left lower lobe. Pleura and pericardium: Moderate to large left pleural effusion measuring 5 Hounsfield units in density. Chest wall and axilla: No mass or adenopathy. Bones: Flowing and anterior osteophytes in the thoracic spine. Abdomen and Pelvis: Liver: Unremarkable. Spleen: 2.2 cm hypodense lesion in the mid spleen within enhancing rim, likely a hemangioma. Small amount of perisplenic fluid measuring 44 Hounsfield units in density. No splenic laceration identified. Pancreas: Unremarkable. Gallbladder and bile ducts: Cholelithiasis. Adrenal glands: Unremarkable. Kidneys: Simple cysts on both kidneys. Small amount of fluid around the left kidney. GI tract: Unremarkable. Appendix is normal. Vascular structures: Aortoiliac calcifications. Lymph nodes: Unremarkable. Miscellaneous: Bilateral fat containing inguinal hernias. No free air. Pelvic Organs: Unremarkable. Bones: Status post left hip arthroplasty. Posterior fusion hardware at L4-L5. Multilevel degenerative disc and facet changes. IMPRESSION: Moderate to large simple left pleural effusion. Patchy opacity in the left lower lobe, favor compressive atelectasis over infection. Small amount of high density fluid around the spleen and left kidney of unknown etiology. No splenic or renal laceration identified. Coronary artery disease. Splenic hemangioma. Cholelithiasis. Status post left hip arthroplasty and posterior fusion hardware at L4-L5. Please note that all CT scans at this facility use dose modulation, iterative reconstruction, and/or weight-based dosing when appropriate to reduce radiation dose to as low as reasonably achievable. Dictated by Ailyn Song MD @ 04/16/2023 10:23:13 PM (Electronically Signed)
[2023-04-16 20:53] LABS: RBC Urine 0-2 (0-2); Squamous Epithelial Cell Urine Few (None-Few); WBC Urine 0-2 (0-5)
[2023-04-16 21:03] LABS: Slide Review Acceptable Review (Acceptable)
[2023-04-16] MEDS: PIPERACILLIN/TAZOBACTAM 3.375 GM in 0.9 % SODIUM CHLORIDE Mini-bag 100 ML IVPB (21:26)
[2023-04-16 21:29] VITALS: TEMP 36.9
[2023-04-16 22:29] VITALS: BP 135/63; PULSE 66; RESP 18; TEMP 36.7; O2SAT 97
--- NOTE | 2023-04-16 23:16 | PM.IMHP1 ---
Hospitalist- H&P: HPI History of Present Illness Date Seen: 04/16/23 Chief complaint: Fall, worse thru the day, difficulty breathing Narrative: Noel Arriaga is a 77 year old male with follicular lymphoma, chronic thrombocytopenia and neutropenia, cardiac amyloid with recurrent pleural effusions required repeat drainage presents now with fever and weakness for 1 day. Patient awoke early this morning and was too weak to walk. He fell trying to go to the bathroom. Between he and his he was unable to get up. They called 911. He was brought to the emergency room. He is found to have a fever. He reports he has had a cough for some time but he thought it was getting a little better. He is due for his monthly thoracentesis on April 18 at [facility]. He reports he gets short of breath before they do the thoracentesis Other than weakness and cough he has no other symptoms of acute illness or injury. He reports no cold, sore throat, chest pain, nausea, vomiting, diarrhea. He has chronic urinary incontinence which is unchanged. No skin rash. He is being treated at [facility] from July to October of 2022 for follicular lymphoma. Due to thrombocytopenia and neutropenia they stop treatment at that point. His white count and platelets have not recovered. He has cardiac amyloidosis. This is thought to cause him to have a benign pleural effusion. He undergoes thoracentesis every month at [facility] for this. Is due for this in 2 days. He is on acyclovir and inhaled antibiotics for prophylaxis. Possibly pneumocystis prophylaxis? He has diabetes mellitus managed with insulin glargine. He tells me that short-acting insulin does not work for him. He reports poor glucose control. Two weeks ago his hemoglobin A1c was 9.2. Review of Systems Narrative: He reports no other illness except as noted above. He does have chronic urinary incontinence. Reports some generalized aches and pains but no new focus of pain swelling or redness [facility] Medical History (Updated 04/16/23 @ 23:36 by Liam Davis MD) Urinary incontinence ?R32 - Unspecified urinary incontinence (ICD-10) Febrile neutropenia ?D70.9 - Neutropenia, unspecified (ICD-10) ?R50.81 - Fever presenting with conditions classified elsewhere (ICD-10) Cardiac dysrhythmia, unspecified ?I49.9 - Cardiac arrhythmia, unspecified (ICD-10) GI (gastrointestinal bleed) ?K92.2 - Gastrointestinal hemorrhage, unspecified (ICD-10) Depression ?F32.A - Depression, unspecified (ICD-10) BPH (benign prostatic hyperplasia) ?N40.0 - Benign prostatic hyperplasia without lower urinary tract symptoms (ICD-10) Cardiac amyloidosis ?E85.4 - Organ-limited amyloidosis (ICD-10) ?I43 - Cardiomyopathy in diseases classified elsewhere (ICD-10) Depression ?F32.A - Depression, unspecified (ICD-10) 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 ?I24.0 - Acute coronary thrombosis not resulting in myocardial infarction (ICD-10) Pleural effusion ?J90 - Pleural effusion, not elsewhere classified (ICD-10) Pleural effusion ?J90 - Pleural effusion, not elsewhere classified (ICD-10) Lymphoma ?C85.90 - Non-Hodgkin lymphoma, unspecified, unspecified site (ICD-10) Narcolepsy ?G47.419 - Narcolepsy without cataplexy (ICD-10) Weight loss ?R63.4 - Abnormal weight loss (ICD-10) Thrombocytopenia (~08/17/15) ?D69.6 - Thrombocytopenia, unspecified (ICD-10) Serum creatinine raised ?R79.89 - Other specified abnormal findings of blood chemistry (ICD-10) Osteoarthritis of multiple joints ?M15.9 - Polyosteoarthritis, unspecified (ICD-10) Fever ?R50.9 - Fever, unspecified (ICD-10) Fatigue ?R53.83 - Other fatigue (ICD-10) Edema of lower extremity ?R60.0 - Localized edema (ICD-10) Abdominal pain ?R10.9 - Unspecified abdominal pain (ICD-10) Surgical History History of percutaneous coronary intervention ?Z98.61 - Coronary angioplasty status (ICD-10) History of lumbar fusion (09/09/12) ?Z98.1 - Arthrodesis status (ICD-10) History of discectomy (~08/2016) ?Z98.890 - Other specified postprocedural states (ICD-10) Status post total hip replacement, 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) ?Z96.642 - Presence of left artificial hip joint (ICD-10) Status post tonsillectomy and adenoidectomy ?Z90.89 - Acquired absence of other organs (ICD-10) History of umbilical hernia repair ?Z98.890 - Other specified postprocedural states (ICD-10) ?Z87.19 - Personal history of other diseases of the digestive system (ICD-10) History of nasal septoplasty ?Z98.890 - Other specified postprocedural states (ICD-10) History of carpal tunnel surgery ?Z98.890 - Other specified postprocedural states (ICD-10) Family History (Updated 04/16/23 @ 23:28 by Liam Davis MD) Father Colon cancer Lung cancer Mother Diabetes FH: thyroid cancer Kidney disease High blood pressure Social History (Updated 04/16/23 @ 23:29 by Liam Davis MD) Narrative: He lives with his . He gets his specialty medical care at [facility]. He does not smoke. He does not drink alcohol. Smoking Status: Never smoker Second hand tobacco smoke exposure: No How often do you have a drink containing alcohol: never How often do you have six or more drinks on one occasion: Never AUDIT-C Alcohol total score: 0 Non-prescribed substance use: denies use Little interest or pleasure in doing things: nearly every day Feeling down, depressed, or hopeless: nearly every day service: No Meds Home Medications and Allergies Home Medications Medication Instructions Recorded Confirmed Type acetaminophen 650 mg 1,300 mg PO BID 01/09/22 03/30/23 History tablet,extended release diclofenac sodium 1 % topical gel 2 g topical QID 03/13/22 03/30/23 History (Voltaren Arthritis Pain) multivitamin (Daily Multi-Vitamin 1 tab PO QDAY 03/13/22 03/30/23 History tablet) aspirin 81 mg chewable tablet 81 mg PO QDAY 07/07/22 03/30/23 History ketoconazole 2 % topical cream 1 applic topical QDAY 07/07/22 03/30/23 History nitroglycerin 0.4 mg sublingual 0.4 mg sublingual 07/11/22 03/30/23 History tablet acyclovir 400 mg tablet 400 mg PO BID 08/15/22 03/30/23 History torsemide 20 mg tablet 20 mg PO QDAY 03/02/23 03/30/23 History Home Medication Comments: He had been on furosemide 20 mg daily and was just pending a switched to torsemide 20 mg daily Allergies Allergy/AdvReac Type Severity Reaction Status Date / Time lovastatin Allergy Severe Throat and Verified 03/30/23 12:50 chest tightness niacin Allergy Severe Throat and Verified 03/30/23 12:50 chest tightness duloxetine Allergy Intermediate throat and Verified 03/30/23 12:50 chest tightness sertraline Allergy Intermediate Dizzy, Verified 03/30/23 12:50 headaches and not right in the head methyldopa Allergy Mild Chills, Verified 03/30/23 12:50 fever Jsydqbd-SCL-ReW Reductase Allergy Verified 03/30/23 12:50 Inhibitor COVID-19 (Adenovirus) Vaccine Allergy Severe Myocarditis Uncoded 03/30/23 12:50 paper tape AdvReac Severe Takes skin Uncoded 03/30/23 12:50 off Exam Narrative: Exam Narrative: He is alert and appears in no distress. He gives his own history. He has good detail. Eyes are normal. Sclerae nonicteric. Oropharynx with small airway. Dry mucous membranes. Neck is supple without mass or adenopathy. Respirations are clear to auscultation. Diminished breath sounds at the left lung base. Few crackles present. Cardiovascular: S1, S2, regular rate and rhythm, 2/6 systolic murmur. Abdomen: Bowel sounds active. Abdomen is soft without tenderness or mass. External genitalia normal. Extremities with week pulses. Diminished sensation bilaterally which he reports is chronic. No skin changes. Const: Vital Signs, click to edit/add: Vital Signs - 24 hr 04/16/23 17:31 04/16/23 20:39 04/16/23 21:29 Temperature 102.2 F H 99.0 F 98.5 F Pulse Rate [Pulse Oximeter] 73 68 Respiratory Rate 32 H 18 Blood Pressure [Ri ght Upper Arm] 170/71 H 135/57 L Pulse Oximetry 96 95 Oxygen Delivery Me thod Room Air Room Air 04/16/23 22:29 Temperature 98.1 F Pulse Rate [Pulse Oximeter] 66 Respiratory Rate 18 Blood Pressure [Ri ght Upper Arm] 135/63 Pulse Oximetry 97 Oxygen Delivery Me thod Room Air Documenting provider has reviewed patient's vital signs: yes Hospitalist - H&P: Result Labs Labs: Short CBC 04/16/23 Range/Units 19:00 WBC 1.17 L* (4.50-11.00) K/uL Hgb 9.2 L (13.5-17.5) gm/dL Hct 30.2 L (37.0-53.0) % Plt Count 107 L (140-440) K/uL BMP 04/16/23 19:00 Sodium 135 Potassium 4.1 Chloride 100 Carbon Dioxide 27 BUN 18 Creatinine 1.4 Glucose 165 H Calcium 8.8 Liver Function 04/16/23 Range/Units 19:00 Total Bilirubin 0.8 (0.1-1.5) mg/dL Direct Bilirubin 0.0 (0.0-0.5) mg/dL AST 34 (12-35) U/L ALT 16 (4-50) U/L Alkaline Phosphatase 100 (40-150) U/L Albumin 3.8 (3.3-5.0) g/dL Urine 04/16/23 Range/Units 20:24 Urine Color Yellow (Yellow) Urine Appearance Clear (Clear) Urine pH 7.0 (5.0-8.5) Ur Specific [place] 1.020 (1.000-1.030) Urine Protein 2+ A (Negative) Urine Glucose (UA) Negative (Negative) Imaging CT Chest/Ab/Pelvis: Radiologist's impression: NDICATION: Fever, neutropenia TECHNIQUE: CT chest, abdomen and pelvis acquired with 98 cc Isovue 370 IV contrast. COMPARISON: March 21, 2019 FINDINGS: Chest: Cardiovascular structures: Heart size is normal. Coronary artery calcifications. Mitral annular calcifications. Thoracic aorta and main pulmonary artery are normal in caliber. Mediastinum and sriram: No mass or adenopathy. Lungs: Patchy opacity in the left lower lobe. Pleura and pericardium: Moderate to large left pleural effusion measuring 5 Hounsfield units in density. Chest wall and axilla: No mass or adenopathy. Bones: Flowing and anterior osteophytes in the thoracic spine. Abdomen and Pelvis: Liver: Unremarkable. Spleen: 2.2 cm hypodense lesion in the mid spleen within enhancing rim, likely a hemangioma. Small amount of perisplenic fluid measuring 44 Hounsfield units in density. No splenic laceration identified. Pancreas: Unremarkable. Gallbladder and bile ducts: Cholelithiasis. Adrenal glands: Unremarkable. Kidneys: Simple cysts on both kidneys. Small amount of fluid around the left kidney. GI tract: Unremarkable. Appendix is normal. Vascular structures: Aortoiliac calcifications. Lymph nodes: Unremarkable. Miscellaneous: Bilateral fat containing inguinal hernias. No free air. Pelvic Organs: Unremarkable. Bones: Status post left hip arthroplasty. Posterior fusion hardware at L4-L5. Multilevel degenerative disc and facet changes. IMPRESSION: Moderate to large simple left pleural effusion. Patchy opacity in the left lower lobe, favor compressive atelectasis over infection. Small amount of high density fluid around the spleen and left kidney of unknown etiology. No splenic or renal laceration identified. Coronary artery disease. Splenic hemangioma. Cholelithiasis. Status post left hip arthroplasty and posterior fusion hardware at L4-L5. Assessment and Plan Assessment and plan (1) Febrile neutropenia: Problem comment: Chronic neutropenia, acute fever, consider thoracentesis to look for empyema. Cefepime for treatment of febrile neutropenia pending cultures. Absolute neutrophil count is unlikely to increase substantially given its chronicity. Consider infections caused by immunosuppression as well. Status: Acute (2) Pleural effusion: Problem comment: Consider thoracentesis here for culture. Patient is scheduled for thoracentesis in 2 days at [facility]. Status: Chronic (3) CPAP (continuous positive airway pressure) dependence: Status: Chronic (4) Urinary incontinence: Status: Acute Plan Patient is hospitalized for treatment with IV antibiotics due to febrile neutropenia. Monitor for complications or deterioration in status. Total time spent today is 75 minutes, 50 minutes in coordination of care discussing with patient other providers ongoing evaluation management of febrile neutropenia and recurrent pleural effusion
--- NOTE | 2023-04-16 23:25 | ED.NURSE ---
report to medical superintendent. pt to [facility] 1
[2023-04-17] VITALS (7 sets, daily range): BP systolic 116–158; BP diastolic 58–76; PULSE 62–76; RESP 16; TEMP 36.9–37.1; O2SAT 95–98; BMI 29.3
[2023-04-17] MEDS: ESCITALOPRAM 10 MG TABLET PO (02:18)
[2023-04-17] MEDS: ASPIRIN 81 MG TAB.CHEW PO (02:18)
[2023-04-17] MEDS: MULTIVITAMIN/MINERALS 1 TABLET 1 TAB PO (02:19)
[2023-04-17] MEDS: TORSEMIDE 20 MG TABLET PO (02:19)
[2023-04-17] MEDS: CEFEPIME HCL 2 GM in 0.9 % SODIUM CHLORIDE Mini-bag 100 ML IVPB ×3 (02:22→21:51)
--- NOTE | 2023-04-17 06:12 | PC.NURSE ---
End of Shift: Pt pleasant and cooperative throughout shift, denied any pain. Independent in room with cane, continent with bladder, no BM reported throughout shift. Last BM last night around 2200. Neutropenic precautions in place d/t health hx. Pt reports he has a cold and believes it to have transmitted from his . Pt reports a fall at home 04/16/23 while walking to chair d/t weakness resulting in a call to EMS for assistance up into chair. IV in left hand patent and intact. ?
[2023-04-17] MEDS: ACETAMINOPHEN 650 MG TABLET ER 1300 MG PO ×2 (08:46→21:40)
[2023-04-17] MEDS: LOSARTAN POTASSIUM 50 MG TABLET 100 MG PO (08:46)
[2023-04-17] MEDS: carvediloL 6.25 MG TABLET 9.375 MG PO ×2 (08:46→21:38)
[2023-04-17] MEDS: ACYCLOVIR 200 MG CAPSULE 400 MG PO ×2 (08:46→21:38)
[2023-04-17] MEDS: SODIUM CHLORIDE 0.9 % (FLUSH) 10 ML SYRINGE 5 ML IVF ×3 (08:49→21:51)
--- NOTE | 2023-04-17 10:26 | P.IMPN_ITS ---
Progress Note: A&P Assessment and plan (1) Febrile neutropenia: Problem details: -Chronic neutropenia, acute fever and weakness -CT shows moderate-large left pleural effusion, left lower lobe opacity -Continue Cefepime -UC, BCx2 pending. MRSA pending. Influenza/SARs/RSV negative. CRP 3.7, re check in a.m. -Strep test ordered (sore throat). Repeat CBC, BMP this morning -sputum culture, strep pneumo/Legionella ordered -General Surgery consulted for thoracentesis left pleural effusion, rule out empyema -Absolute neutrophil count is unlikely to increase substantially given its chronicity. Consider infections caused by immunosuppression as well. Status: Acute (2) Pleural effusion: Problem details: -history of cardiac amyloidosis. Routine therapeutic thoracentesis-scheduled for thoracentesis 04/18/2023 at [place]. -General Surgery consulted for thoracentesis here for culture Status: Chronic (3) Thrombocytopenia: Problem details: -chronic in setting of previous chemotherapy, which has been held -continue to monitor Status: Chronic (4) Chronic a-fib: Problem details: -continue carvedilol, on enoxaparin during hospital stay-will need to monitor platelets Status: Chronic (5) Follicular lymphoma grade ii, lymph nodes of multiple sites: Problem details: -treated at [place] from July to October of 2022. Due to thrombocytopenia and neutropenia they stop treatment at that point. 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 -diabetic diet, glucose checks ACHS, insulin sliding scale Status: Acute Plan CODE: Full VTE PPX: Enoxaparin - will need to monitor platelets Disposition: Inpatient Time Spent With Patient Total time spent: Total time spent caring for the patient today was 45 minutes. This includes time spent for the visit reviewing the chart, time spent during the visit, time spent after the visit and documentation and planning in coordination of care. Subjective Date Seen: 04/17/23 Interval history: Patient reports feeling better this morning, 04/10, as good as he did last week, back to baseline. Denies headache or dizziness. Reports a sore throat. His also recently had a sore throat but tested negative for strep. Denies chest pain. Admits to increasing shortness of breath but tells me this occurs when his pleural effusion increases, just prior to his scheduled thoracentesis. He is scheduled for thoracentesis in [place] tomorrow. He is tolerating orals without nausea vomiting. No events reported overnight. Last fever was 102 around 1730 yesterday. Exam Narrative: Exam Narrative: PHYSICAL EXAM General: Sitting up in a chair, conversant, NAD HEENT: Normocephalic, atraumatic, sclera white, EOMI, oral mucosa moist Cardiovascular: RRR, S1S2. No pitting edema Pulmonary: CTA right lobe without rhonchi, rales, expiratory wheezes. Left lobe decreased breath sounds. No dyspnea Abdominal: Soft, nondistended, NTTP Neurological: Alert, answering questions appropriately, cranial nerves intact, no focal findings Extremities: No gross joint deformity or swelling. AROMI. Neurovascularly intact Skin: Warm, dry. Const: Vital Signs, click to edit/add: Vital Signs - 24 hr 04/16/23 17:31 04/16/23 20:39 04/16/23 21:29 Temperature 102.2 F H 99.0 F 98.5 F Pulse Rate [Left P ulse Oximeter] Pulse Rate [Pulse Oximeter] 73 68 Respiratory Rate 32 H 18 Blood Pressure [Le ft Arm] Blood Pressure [Ri ght Upper Arm] 170/71 H 135/57 L Pulse Oximetry 96 95 Oxygen Delivery Me thod Room Air Room Air 04/16/23 22:29 04/17/23 01:13 04/17/23 01:13 Temperature 98.1 F 98.6 F Pulse Rate [Left P ulse Oximeter] 76 Pulse Rate [Pulse Oximeter] 66 Respiratory Rate 18 16 16 Blood Pressure [Le ft Arm] 158/75 H Blood Pressure [Ri ght Upper Arm] 135/63 Pulse Oximetry 97 96 96 Oxygen Delivery Me thod Room Air Room Air Room Air 04/17/23 02:40 04/17/23 08:26 Temperature 98.6 F 98.6 F Pulse Rate [Left P ulse Oximeter] 62 62 Pulse Rate [Pulse Oximeter] Respiratory Rate 16 16 Blood Pressure [Le ft Arm] 116/58 L 132/62 Blood Pressure [Ri ght Upper Arm] Pulse Oximetry 95 96 Oxygen Delivery Me thod Room Air CPAP Room Air Labs Labs: Laboratory Results - last 24 hr 04/16/23 04/16/23 19:00 20:24 WBC 1.17 L* RBC 4.05 L Hgb 9.2 L Hct 30.2 L MCV 75 L MCH 23 L MCHC 31 L RDW Coeff of Shukri 15.2 Plt Count 107 L Neut % (Auto) 59.1 Lymph % (Auto) 6.8 L [place] % (Auto) 20.5 H Eos % (Auto) 3.4 Baso % (Auto) 1.7 Neut # (Auto) 0.70 L Lymph # (Auto) 0.10 L [place] # (Auto) 0.20 Eos # (Auto) 0.00 Baso # (Auto) 0.00 Abs Immat Gran (auto) 0.10 Imm/Tot Granulo (auto) 8.5 Diff Slide Review Acceptable Review Sodium 135 Potassium 4.1 Chloride 100 Carbon Dioxide 27 Anion Gap 8 BUN 18 Creatinine 1.4 Estimated Creat Clear 44.90 Estimated GFR 51 Glucose 165 H Lactate 1.3 Calcium 8.8 Total Bilirubin 0.8 Direct Bilirubin 0.0 AST 34 ALT 16 Alkaline Phosphatase 100 C-Reactive Protein 3.7 H Total Protein 6.2 Albumin 3.8 Urine Color Yellow Urine Appearance Clear Urine pH 7.0 Ur Specific [place] 1.020 Urine Protein 2+ A Urine Glucose (UA) Negative Urine Ketones Negative Urine Blood Negative Urine Nitrite Negative Urine Bilirubin Negative Urine Urobilinogen 0.2 Ur Leukocyte Esterase Negative Urine RBC 0-2 Urine WBC 0-2 Ur Squamous Epith Cells Few Urine Bacteria None SARS-CoV-2 (PCR) Negative SARS-CoV-2 Influenza Type A (PCR) Negative PCR FLU A Influenza Type B (PCR) Negative PCR FLU B RSV (PCR) Negative PCR RSV
[2023-04-17 10:35] LABS: Basophils Percent Auto 0.8 % (0.0-3.0); Eosinophils Percent Auto 7.1 % (0.0-7.0); Hematocrit 31.2 % (37.0-53.0); Hemoglobin* 9.6 gm/dL (13.5-17.5); Immature Granulocytes Pct Auto 1.6 %; Lymphocytes Percent Auto 7.1 % (20-44); Mean Corpuscular HGB Conc 31 gm/dL (32-36); Mean Corpuscular Hemoglobin 23 pg (26-34); Mean Corpuscular Volume 75 fL (80-100); Monocytes Percent Auto 29.1 % (0.0-11.0); Neutrophils Percent Auto 54.3 % (42.0-72.0); Platelet Count* 101 K/uL (140-440); RDW Coefficient of Variation % 15.4 % (11.5-15.5); Red Blood Count 4.16 m/uL (4.30-5.90)
[2023-04-17 10:41] LABS: White Blood Count* 1.27 K/uL (4.50-11.00)
[2023-04-17 10:42] LABS: Slide Review Reflex Yes
[2023-04-17 10:46] LABS: Chloride* 99 mmol/L (96-114); Sodium* 135 mmol/L (135-149)
[2023-04-17 10:47] LABS: Potassium* 3.7 mmol/L (3.6-5.1)
[2023-04-17 10:49] LABS: Anion Gap 9 mEq/L (7-15); Carbon Dioxide* 27 mmol/L (20-32); Creatinine* 1.8 mg/dL (0.5-1.5); Est. Creatinine Clearance* 34.92; Estimated Glomerular Filt Rate 38 ml/min
[2023-04-17 10:50] LABS: Blood Urea Nitrogen* 22 mg/dL (7-30); Calcium* 8.9 mg/dL (8.4-10.6); Glucose* 275 mg/dL (60-115); Magnesium* 1.8 mg/dL (1.5-2.6)
--- NOTE | 2023-04-17 11:00 | PC.NURSE ---
Patient stated he is unable to produce sputum. MD was notified and stated that is fine. Keep container at bedside incase it changes.
[2023-04-17 11:05] LABS: Slide Review Acceptable Review (Acceptable)
[2023-04-17 11:10] LABS: Strep A DNA Probe* NOT DETECTED (Not Detectd)
--- NOTE | 2023-04-17 11:17 | REH.PT ---
PT orders received, Chart Reviewed. Pt up amb ind in room without an AD. Screened balance scoring 24/28 on the Tinetti balance test. Ind with all gait. Instructed on one balance ex from chair STS without UE support. Skilled PT not warranted at this time. D/C PT orders.
[2023-04-17 12:17] LABS: S pneumo Ag Urine S. pneumo Negative (Negative)
[2023-04-17 12:18] LABS: Legionella pneumo Ag Urine L. pneumo Negative (Negative)
--- NOTE | 2023-04-17 13:54 | PC.NURSE ---
End of shift report: Patient has been up in room independently. Afebrile for this shift. Patient stated he is feeling much better than he did yesterday. Continuing to receive IV antibiotics. Will have a thoracentesis tomorrow with Dr. Mitchell at 1200. Lung sounds are absent on left side and clear on right side. Patient denies shortness of breath at rest. Maintains 96% on RA. Voiding without difficulty. Had a large BM this morning- soft, brown. 20g PIV in left hand is patent and intact. Denies pain at this time. Blood sugars are being monitored and insulin ordered as well. Tolerating a regular diet. Denies nausea/vomiting. Patient and our team have been in contact with [facility] today and plan of care will remain the same. Patient is alert and oriented and pleasant.
[2023-04-17] MEDS: OMEPRAZOLE 20 MG CAPSULE DR 40 MG PO (21:40)
[2023-04-17] MEDS: ENOXAPARIN 40 MG/0.4 ML INJ SUBCUT ×2 (21:41→21:50)
--- NOTE | 2023-04-17 22:17 | PC.NURSE ---
Shift Note: Pt cooperative. VS WNL, LS absent on left side. Denies pain. BG 194 and 283, Sliding scale Novolog and Levemir given. Afebrile. Pt not displaying cough and has been unable to produce sputum for collection. Moves throughout his room independently.
[2023-04-18] VITALS (13 sets, daily range): BP systolic 98–154; BP diastolic 55–73; PULSE 57–87; RESP 16–18; TEMP 36.8–37.1; O2SAT 95–99
[2023-04-18] MEDS: MELATONIN 3 MG TABLET PO ×2 (01:45→22:16)
[2023-04-18 06:38] LABS: Basophils Percent Auto 2.5 % (0.0-3.0); Immature Granulocytes Pct Auto 0.8 %; Lymphocytes Percent Auto 7.6 % (20-44); Mean Corpuscular HGB Conc 31 gm/dL (32-36); Mean Corpuscular Hemoglobin 23 pg (26-34); Mean Corpuscular Volume 75 fL (80-100); Monocytes Percent Auto 25.2 % (0.0-11.0); Neutrophils Percent Auto 42.9 % (42.0-72.0); Platelet Count* 90 K/uL (140-440); RDW Coefficient of Variation % 15.5 % (11.5-15.5); Red Blood Count 3.89 m/uL (4.30-5.90)
[2023-04-18 06:45] LABS: Chloride* 102 mmol/L (96-114); Sodium* 136 mmol/L (135-149)
[2023-04-18 06:46] LABS: Potassium* 3.6 mmol/L (3.6-5.1)
[2023-04-18 06:48] LABS: Creatinine* 1.8 mg/dL (0.5-1.5); Est. Creatinine Clearance* 34.92; Estimated Glomerular Filt Rate 38 ml/min
[2023-04-18 06:49] LABS: Anion Gap 10 mEq/L (7-15); Blood Urea Nitrogen* 31 mg/dL (7-30); Calcium* 8.5 mg/dL (8.4-10.6); Carbon Dioxide* 24 mmol/L (20-32); Glucose* 207 mg/dL (60-115)
[2023-04-18 06:52] LABS: C Reactive Protein* 4.5 mg/dL (0.5-1.0)
--- NOTE | 2023-04-18 07:03 | PM.IMPN1 ---
Progress Note: A&P Assessment and plan (1) Febrile neutropenia: Problem details: -Chronic neutropenia, acute fever and weakness. Has remained afebrile since admission -CT shows moderate-large left pleural effusion, left lower lobe opacity -Continue Cefepime -UA unremarkable, BCx2 NGTD. MRSA negative. Influenza/SARs/RSV negative. CRP uptrending 4.5 from 3.7 -Strep test negative. Follow with daily CBC, BMP -sputum culture - likely unable to produce a sample, strep pneumo/Legionella negative -General Surgery consulted - thoracentesis 04/18 for left pleural effusion, rule out empyema -Absolute neutrophil count is unlikely to increase substantially given its chronicity. Consider infections caused by immunosuppression as well. -04/17 discussed with Ebony Lozoya RN, from [facility] team. Agrees with current plan without further recommendations. Team (Dr. Bryson, Ebony, Juanita - RNs) available for questions/recommendations as needed. [phone] x2. Status: Acute (2) Pleural effusion: Problem details: -history of cardiac amyloidosis. Routine therapeutic thoracentesis-scheduled for thoracentesis 04/18/2023 at [facility] (being done locally on 04/18) -General Surgery following -pleural fluid cell count and differential, total protein, LDH, glucose, cholesterol, culture, Gram stain, cytology, pH ordered Status: Chronic (3) Cardiac amyloidosis: Problem details: -has been prescribed Vyndamax but he tells me he is unable to afford it so has not taken it. Working with [facility] and [facility] for options Status: Acute (4) Follicular lymphoma grade ii, lymph nodes of multiple sites: Problem details: -treated at [facility] from July to October of 2022. Due to thrombocytopenia and neutropenia they stopped treatment at that point. His white count and platelets have not recovered -continues to be followed by Heme[facility]Onc at [facility], Dr. Bryson Status: Chronic (5) Thrombocytopenia: Problem details: -chronic in setting of previous chemotherapy, which has been held -remains stable, continue to monitor Status: Chronic (6) Chronic a-fib: Problem details: -continue carvedilol -not currently on anticoagulation. Previously on warfarin, stopped December 2022 due to GI bleed. 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 -diabetic diet, glucose checks ACHS, insulin sliding scale- adjusting dosing as necessary Status: Acute Plan Thoracentesis 04/18/2023, waiting pleural fluid results to determine discharge plan Time Spent With Patient Total time spent: Total time spent caring for the patient today was 45 minutes. This includes time spent for the visit reviewing the chart, time spent during the visit, time spent after the visit and documentation and planning in coordination of care. Subjective Date Seen: 04/18/23 Interval history: Patient reports feeling tired this morning otherwise no new complaints or concerns. Continues to feel short of breath which is chronic with increasing size of pleural effusion. Worse when lying flat. Improves following routine thoracentesis. Denies headache or dizziness. Tolerating orals without nausea vomiting. Awaiting thoracentesis this afternoon with Dr. Mitchell Exam Narrative: Exam Narrative: PHYSICAL EXAM General: Lying in bed, NAD HEENT: Normocephalic, atraumatic, sclera white, EOMI, oral mucosa moist Cardiovascular: RRR, S1S2. No pitting edema Pulmonary: Decreased breath sounds left side without rhonchi, rales, expiratory wheezes. No dyspnea Neurological: Alert, answering questions appropriately, cranial nerves intact, no focal findings Extremities: No gross joint deformity or swelling. AROMI. Neurovascularly intact Skin: Warm, dry. Const: Vital Signs, click to edit/add: Vital Signs - 24 hr 04/17/23 08:26 04/17/23 11:24 04/17/23 15:00 Temperature 98.6 F 98.6 F Pulse Rate [Left P ulse Oximeter] 62 68 63 Respiratory Rate 16 16 16 Blood Pressure [Le ft Arm] 132/62 121/59 L Pulse Oximetry 96 96 Oxygen Delivery Me thod Room Air Room Air 04/17/23 15:00 04/17/23 19:00 04/18/23 02:05 Temperature 98.8 F 98.7 F 98.2 F Pulse Rate [Left P ulse Oximeter] 63 62 72 Respiratory Rate 16 16 16 Blood Pressure [Le ft Arm] 128/58 L 126/76 154/64 H Pulse Oximetry 96 98 95 Oxygen Delivery Me thod Room Air Room Air Room Air Labs Labs: Laboratory Results - last 24 hr 04/16/23 04/17/23 04/17/23 20:24 09:54 10:27 WBC 1.27 L* RBC 4.16 L Hgb 9.6 L Hct 31.2 L MCV 75 L MCH 23 L MCHC 31 L RDW Coeff of Shukri 15.4 Plt Count 101 L Neut % (Auto) 54.3 Lymph % (Auto) 7.[address] % (Auto) 29.1 H Eos % (Auto) 7.1 H Baso % (Auto) 0.8 Neut # (Auto) 0.70 L Lymph # (Auto) 0.[address] # (Auto) 0.40 Eos # (Auto) 0.10 Baso # (Auto) 0.00 Abs Immat Gran (auto) 0.00 Imm/Tot Granulo (auto) 1.6 Diff Slide Review Acceptable Review Sodium 135 Potassium 3.7 Chloride 99 Carbon Dioxide 27 Anion Gap 9 BUN 22 Creatinine 1.8 H Estimated Creat Clear 34.92 Estimated GFR 38 Glucose 275 H Calcium 8.9 Magnesium 1.8 C-Reactive Protein Urine L. pneumophilia Ag L. pneumo Negative Urine Strep pneumoniae Ag S. pneumo Negative Group A Strep DNA NOT DETECTED 04/18/23 05:44 WBC RBC Hgb Hct MCV MCH MCHC RDW Coeff of Shukri Plt Count Neut % (Auto) Lymph % (Auto) [place] % (Auto) Eos % (Auto) Baso % (Auto) Neut # (Auto) Lymph # (Auto) [place] # (Auto) Eos # (Auto) Baso # (Auto) Abs Immat Gran (auto) Imm/Tot Granulo (auto) Diff Slide Review Sodium 136 Potassium 3.6 Chloride 102 Carbon Dioxide 24 Anion Gap 10 BUN 31 H Creatinine 1.8 H Estimated Creat Clear 34.92 Estimated GFR 38 Glucose 207 H Calcium 8.5 Magnesium C-Reactive Protein 4.5 H Urine L. pneumophilia Ag Urine Strep pneumoniae Ag Group A Strep DNA
--- NOTE | 2023-04-18 07:31 | PC.NURSE ---
Pt is alert and oriented x3. Afebrile. Pt denies, pain, chest pain, SOB and N/V.?Around 0130 pt was up reading, reporting difficulty sleeping life insurance underwriter offered sleep aids and discussed medication options, gave PRN Melatonin. Pt slept intermittently throughout night. ? ??
[2023-04-18 07:32] LABS: Slide Review Reflex Yes; White Blood Count* 1.19 K/uL (4.50-11.00)
[2023-04-18 08:20] LABS: Slide Review Acceptable Review (Acceptable)
[2023-04-18] MEDS: OMEPRAZOLE 20 MG CAPSULE DR 40 MG PO ×2 (08:33→20:44)
--- NOTE | 2023-04-18 09:04 | PM.GSCN ---
History of Present Illness Consult details Date Seen: 04/18/23 Consult date: 04/18/23 Narrative: The patient is a 77-year-old male admitted to the hospital with weakness and neutropenic fevers. he has a chronic left pleural effusion is undergoes monthly thoracentesis at [facility]. he is actually due to undergo thoracentesis there today. I was asked to perform thoracentesis for diagnostic purposes as well as therapeutic. He states that he knows that the fluid has reaccumulated as he is more short of breath than usual. He states that the most fluid that they have removed was 1800 mL. Usually they removed around a L to 1400 mL. The pleural effusion is thought to be secondary to his cardiac amyloidosis. [facility] Medical History (Updated 04/18/23 @ 11:33 by Stephanie Reaves PA-C) Urinary incontinence ?R32 - Unspecified urinary incontinence (ICD-10) Febrile neutropenia ?D70.9 - Neutropenia, unspecified (ICD-10) ?R50.81 - Fever presenting with conditions classified elsewhere (ICD-10) Cardiac dysrhythmia, unspecified ?I49.9 - Cardiac arrhythmia, unspecified (ICD-10) GI (gastrointestinal bleed) ?K92.2 - Gastrointestinal hemorrhage, unspecified (ICD-10) Depression ?F32.A - Depression, unspecified (ICD-10) BPH (benign prostatic hyperplasia) ?N40.0 - Benign prostatic hyperplasia without lower urinary tract symptoms (ICD-10) Cardiac amyloidosis ?E85.4 - Organ-limited amyloidosis (ICD-10) ?I43 - Cardiomyopathy in diseases classified elsewhere (ICD-10) Depression ?F32.A - Depression, unspecified (ICD-10) 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 ?I24.0 - Acute coronary thrombosis not resulting in myocardial infarction (ICD-10) Pleural effusion ?J90 - Pleural effusion, not elsewhere classified (ICD-10) Pleural effusion ?J90 - Pleural effusion, not elsewhere classified (ICD-10) Lymphoma ?C85.90 - Non-Hodgkin lymphoma, unspecified, unspecified site (ICD-10) Narcolepsy ?G47.419 - Narcolepsy without cataplexy (ICD-10) Weight loss ?R63.4 - Abnormal weight loss (ICD-10) Thrombocytopenia (~08/17/15) ?D69.6 - Thrombocytopenia, unspecified (ICD-10) Serum creatinine raised ?R79.89 - Other specified abnormal findings of blood chemistry (ICD-10) Osteoarthritis of multiple joints ?M15.9 - Polyosteoarthritis, unspecified (ICD-10) Fever ?R50.9 - Fever, unspecified (ICD-10) Fatigue ?R53.83 - Other fatigue (ICD-10) Edema of lower extremity ?R60.0 - Localized edema (ICD-10) Abdominal pain ?R10.9 - Unspecified abdominal pain (ICD-10) Surgical History History of percutaneous coronary intervention ?Z98.61 - Coronary angioplasty status (ICD-10) History of lumbar fusion (09/09/12) ?Z98.1 - Arthrodesis status (ICD-10) History of discectomy (~08/2016) ?Z98.890 - Other specified postprocedural states (ICD-10) Status post total hip replacement, 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) ?Z96.642 - Presence of left artificial hip joint (ICD-10) Status post tonsillectomy and adenoidectomy ?Z90.89 - Acquired absence of other organs (ICD-10) History of umbilical hernia repair ?Z98.890 - Other specified postprocedural states (ICD-10) ?Z87.19 - Personal history of other diseases of the digestive system (ICD-10) History of nasal septoplasty ?Z98.890 - Other specified postprocedural states (ICD-10) History of carpal tunnel surgery ?Z98.890 - Other specified postprocedural states (ICD-10) Family History (Updated 04/16/23 @ 23:28 by Liam Davis MD) Father Colon cancer Lung cancer Mother Diabetes FH: thyroid cancer Kidney disease High blood pressure Social History (Updated 04/16/23 @ 23:29 by Liam Davis MD) Narrative: He lives with his . He gets his specialty medical care at [facility]. He does not smoke. He does not drink alcohol. What is your current living situation?: I presently have a place to live Problems where you live: no known problems Problems where you live details: na In the past 12 months, utilities in danger of being shut off: no In past 12 months, lack of transportation kept you from medical appts, meetings, work, or getting things needed for daily living: no In the past 12 mos, have been you worried that your food would run out before you had money to buy more?: never true In the past 12 mos, the food you bought just didn't last and you didn't have money to buy more?: never true Highest level of school completed/degree received: Bachelor's degree Smoking Status: Never smoker Do you use any of these nicotine containing products: None Second hand tobacco smoke exposure: No How often do you have a drink containing alcohol: never How often do you have six or more drinks on one occasion: Never AUDIT-C Alcohol total score: 0 Non-prescribed substance use: denies use Caffeine: Yes How often does anyone, including family, friends and others, physically hurt you: never How often does anyone, including family, friends and others, insult or talk down to you: never How often does anyone, including family, friends and others, threaten you with harm: never How often does anyone, including family, friends and others, scream or curse at you: never Little interest or pleasure in doing things: nearly every day Feeling down, depressed, or hopeless: nearly every day service: No Meds Home Medications and Allergies Home Medications Medication Instructions Recorded Confirmed Type acetaminophen 650 mg 1,300 mg PO BID 01/09/22 04/17/23 History tablet,extended release diclofenac sodium 1 % topical gel 2 g topical QID PRN 03/13/22 04/17/23 History (Voltaren Arthritis Pain) multivitamin (Daily Multi-Vitamin 1 tab PO DAILY 03/13/22 04/17/23 History tablet) aspirin 81 mg chewable tablet 81 mg PO DAILY 07/07/22 04/17/23 History ketoconazole 2 % topical cream 1 applic topical DAILY PRN 07/07/22 04/17/23 History nitroglycerin 0.4 mg sublingual 0.4 mg sublingual Q5M PRN 07/11/22 04/17/23 History tablet acyclovir 400 mg tablet 400 mg PO BID 08/15/22 04/17/23 History torsemide 20 mg tablet 20 mg PO DAILY 03/02/23 04/17/23 History escitalopram oxalate 10 mg tablet 10 mg PO DAILY 04/17/23 04/17/23 History (Lexapro) insulin glargine 100 unit/mL (3 30 unit subcut HS 04/17/23 04/17/23 History mL) subcutaneous pen manganese 15 mg capsule 15 mg PO DAILY 04/17/23 04/17/23 History pantoprazole 40 mg tablet,delayed 40 mg PO BID 04/17/23 04/17/23 History release Allergies Allergy/AdvReac Type Severity Reaction Status Date / Time lovastatin Allergy Severe Throat and Verified 03/30/23 12:50 chest tightness niacin Allergy Severe Throat and Verified 03/30/23 12:50 chest tightness duloxetine Allergy Intermediate throat and Verified 03/30/23 12:50 chest tightness sertraline Allergy Intermediate Dizzy, Verified 03/30/23 12:50 headaches and not right in the head methyldopa Allergy Mild Chills, Verified 03/30/23 12:50 fever Jyejdyw-HPH-BnA Reductase Allergy Verified 03/30/23 12:50 Inhibitor COVID-19 (Adenovirus) Vaccine Allergy Severe Myocarditis Uncoded 03/30/23 12:50 paper tape AdvReac Severe Takes skin Uncoded 03/30/23 12:50 off Exam Narrative: Exam Narrative: General: No acute distress CV: Regular rate respiratory: Breathing is nonlabored on room air. Patient is satting in the mid 90s. Const: Vital Signs, click to edit/add: Vital Signs - 24 hr 04/17/23 11:24 04/17/23 15:00 04/17/23 15:00 Temperature 98.6 F 98.8 F Pulse Rate [Left A pical] Pulse Rate [Left P ulse Oximeter] 68 63 63 Respiratory Rate 16 16 16 Blood Pressure [Le ft Arm] 121/59 L 128/58 L Pulse Oximetry 96 96 Oxygen Delivery Me thod Room Air Room Air 04/17/23 19:00 04/18/23 02:05 04/18/23 08:00 Temperature 98.7 F 98.2 F 98.7 F Pulse Rate [Left A pical] 58 L Pulse Rate [Left P ulse Oximeter] 62 72 58 L Respiratory Rate 16 16 16 Blood Pressure [Le ft Arm] 126/76 154/64 H 116/59 L Pulse Oximetry 98 95 96 Oxygen Delivery Me thod Room Air Room Air Room Air Results Labs Labs: Abnormal lab results 04/17/23 04/18/23 Range/Units 10:27 05:44 WBC 1.27 L* 1.19 L* (4.50-11.00) K/uL RBC 4.16 L 3.89 L (4.30-5.90) m/uL Hgb 9.6 L 9.0 L (13.5-17.5) gm/dL Hct 31.2 L 29.0 L (37.0-53.0) % MCV 75 L 75 L (80-100) fL MCH 23 L 23 L (26-34) pg MCHC 31 L 31 L (32-36) gm/dL Plt Count 101 L 90 L (140-440) K/uL Lymph % (Auto) 7.1 L 7.6 L (20-44) % [place] % (Auto) 29.1 H 25.2 H (0.0-11.0) % Eos % (Auto) 7.1 H 21.0 H (0.0-7.0) % Neut # (Auto) 0.70 L 0.50 L (1.7-7.0) K/uL Lymph # (Auto) 0.10 L 0.10 L (0.90-2.90) K/uL BUN 31 H (7-30) mg/dL Creatinine 1.8 H 1.8 H (0.5-1.5) mg/dL Glucose 275 H 207 H (60-115) mg/dL C-Reactive Protein 4.5 H (0.5-1.0) mg/dL Diabetes panel 04/17/23 04/18/23 Range/Units 10:27 05:44 Sodium 135 136 (135-149) mmol/L Potassium 3.7 3.6 (3.6-5.1) mmol/L Chloride 99 102 (96-114) mmol/L Carbon Dioxide 27 24 (20-32) mmol/L BUN 22 31 H (7-30) mg/dL Creatinine 1.8 H 1.8 H (0.5-1.5) mg/dL Glucose 275 H 207 H (60-115) mg/dL Calcium 8.9 8.5 (8.4-10.6) mg/dL Calcium panel 04/17/23 04/18/23 Range/Units 10:27 05:44 Calcium 8.9 8.5 (8.4-10.6) mg/dL Pituitary panel 04/17/23 04/18/23 Range/Units 10:27 05:44 Sodium 135 136 (135-149) mmol/L Potassium 3.7 3.6 (3.6-5.1) mmol/L Chloride 99 102 (96-114) mmol/L Carbon Dioxide 27 24 (20-32) mmol/L BUN 22 31 H (7-30) mg/dL Creatinine 1.8 H 1.8 H (0.5-1.5) mg/dL Glucose 275 H 207 H (60-115) mg/dL Calcium 8.9 8.5 (8.4-10.6) mg/dL Adrenal panel 04/17/23 04/18/23 Range/Units 10:27 05:44 Sodium 135 136 (135-149) mmol/L Potassium 3.7 3.6 (3.6-5.1) mmol/L Chloride 99 102 (96-114) mmol/L Carbon Dioxide 27 24 (20-32) mmol/L BUN 22 31 H (7-30) mg/dL Creatinine 1.8 H 1.8 H (0.5-1.5) mg/dL Glucose 275 H 207 H (60-115) mg/dL Calcium 8.9 8.5 (8.4-10.6) mg/dL All other labs normal. Imaging Abdomen CT scan report/results: report reviewed and image reviewed Additional studies: CT chest abdomen pelvis done on admission shows a large simple left pleural effusion Assessment and Plan Assessment and plan (1) Febrile neutropenia: Problem comment: -Chronic neutropenia, acute fever and weakness. Has remained afebrile since admission -CT shows moderate-large left pleural effusion, left lower lobe opacity -Continue Cefepime -UA unremarkable, BCx2 NGTD. MRSA negative. Influenza/SARs/RSV negative. CRP uptrending 4.5 from 3.7 -Strep test negative. Follow with daily CBC, BMP -sputum culture - likely unable to produce a sample, strep pneumo/Legionella negative -General Surgery consulted - thoracentesis 04/18 for left pleural effusion, rule out empyema -Absolute neutrophil count is unlikely to increase substantially given its chronicity. Consider infections caused by immunosuppression as well. -04/17 discussed with Ebony Lozoya RN, from [facility] team. Agrees with current plan without further recommendations. Team (Dr. Bryson, Juanita Beck - RNs) available for questions/recommendations as needed. [phone] x2. Status: Acute (2) Pleural effusion: Problem comment: -history of cardiac amyloidosis. Routine therapeutic thoracentesis-scheduled for thoracentesis 04/18/2023 at [facility] (being done locally on 04/18) -General Surgery following -pleural fluid cell count and differential, total protein, LDH, glucose, cholesterol, culture, Gram stain, cytology, pH ordered Status: Chronic Plan the patient is a 77-year-old male with febrile neutropenia and a large left pleural effusion likely secondary to cardiac amyloidosis. I was asked to perform a diagnostic and therapeutic thoracentesis. I discussed risks with the patient and he agreed to proceed. This was performed today at bedside. 400 mL of fluid was removed. There is some remaining fluid noted in the chest cavity, however in the area of the catheter all the fluid was removed. The patient tolerated the procedure well. He may need repeat thoracentesis sooner given that only 400 mL were removed, however he states that his breathing is already better.
--- NOTE | 2023-04-18 09:04 | PM.PROC ---
Procedure Note Date Seen: 04/18/23 Will [facility] bill your pro fee for this procedure?: Yes Pre-op diagnosis: Left pleural effusion Post-op diagnosis: same Procedure: left thoracentesis under ultrasound guidance Procedure Description: After discussion of the risks and benefits the patient was placed in a seated position leaning over a table. Ultrasound guidance was used to identify the effusion. Once this was done the site was marked. The area was prepped and draped in the usual sterile fashion. Local anesthetic was used to anesthetize the skin and subcutaneous tissue down to the rib. Once the rib was encountered, the needle was advanced over the top of the rib into the pleural space. This was confirmed by the aspiration of clear fluid. A skin klaudia was made with an 11 blade. The thoracentesis catheter was advanced into the pleural cavity while aspirating. Once the pleural fluid was aspirated confirming entrance into the chest cavity, the needle was removed and the sheath advanced. 400 mL of fluid were then aspirated. at this point no further fluid would return from the catheter. The ultrasound was placed on the chest wall. The area around the catheter showed minimal fluid though there was still a pocket more medially on the chest wall. I waited an adjusted the catheter, however I was unable to aspirate any more fluid. At this point, the catheter was removed and an occlusive dressing was placed. Specimens were sent. Patient tolerated the procedure well. Estimated blood loss 1 mL Postprocedure chest x-ray revealed no pneumothorax. Anesthesia: local Pathology: specimen obtained, sent to pathology Condition: stable Disposition: floor
[2023-04-18] MEDS: ACETAMINOPHEN 650 MG TABLET ER 1300 MG PO ×2 (09:40→20:45)
[2023-04-18] MEDS: LOSARTAN POTASSIUM 50 MG TABLET 100 MG PO (09:41)
[2023-04-18] MEDS: TORSEMIDE 20 MG TABLET PO (09:42)
[2023-04-18] MEDS: ACYCLOVIR 200 MG CAPSULE 400 MG PO ×2 (09:42→20:44)
[2023-04-18] MEDS: ESCITALOPRAM 10 MG TABLET PO (09:43)
[2023-04-18] MEDS: ASPIRIN 81 MG TAB.CHEW PO (09:43)
[2023-04-18] MEDS: MULTIVITAMIN/MINERALS 1 TABLET 1 TAB PO (09:44)
[2023-04-18] MEDS: carvediloL 6.25 MG TABLET 9.375 MG PO ×2 (09:44→20:45)
[2023-04-18] MEDS: SODIUM CHLORIDE 0.9 % (FLUSH) 10 ML SYRINGE 5 ML IVF ×3 (09:47→20:45)
[2023-04-18] MEDS: CEFEPIME HCL 2 GM in 0.9 % SODIUM CHLORIDE Mini-bag 100 ML IVPB ×2 (09:53→21:34)
--- NOTE | 2023-04-18 12:28 | CRLHL7_ITS ---
For Patients: As a result of the Century Cures Act, medical imaging exams and procedure reports are released immediately into your electronic medical record. You may view this report before your referring provider. If you have questions, please contact your health care provider. INDICATION: Status post thoracentesis COMPARISON: 04/16/2023 TECHNIQUE: 1 view chest radiograph. FINDINGS: The lungs are well expanded. Left retrocardiac opacity. No pulmonary edema. Left pleural effusion does not appear appreciably changed. No pneumothorax. No pneumomediastinum. Cardiomegaly. Bones: Normal for age. IMPRESSION: No pneumothorax after thoracentesis. Dictated by Ceci Bartlett MD @ 04/18/2023 2:03:50 PM (Electronically Signed)
[2023-04-18 13:00] LABS: Mononuclear WBC Body Fluid* 95 %; Polynuclear WBC Body Fluid* 5 %; RBC, Body Fluid* 2000 Cells/uL; WBC, Body Fluid* 41 Cells/uL
[2023-04-18 13:06] LABS: BF Clarity* Clear; BF Total Volume* 20
[2023-04-18 13:07] LABS: BF Color Xanthochromic
[2023-04-18 13:14] LABS: pH Body Fluid* 8.5
[2023-04-18 13:23] LABS: Body Fluid Total Protein* 2.8 gm/dL; Cholesterol Body Fluid* < 50 mg/dL; Glucose Body Fluid* 189 mg/dL; LDH Body Fluid* 122 U/L
--- NOTE | 2023-04-18 14:05 | PC.NURSE ---
Pt BG levels 199 and 179 prior to his daytime meals. Each value was covered with 3 units of novolog insulin from . Permit for procedure obtained and time out taken at bedside per safety protocol. Thoracentesis performed at bedside with Dr. Mitchell at noon, guided by ultrasound. Q 5 minute VS taken during procedure. Specimens sent to lab. Pt stated he is able to breathe more easily after fluid removed during procedure. Pt is [place] and has bilateral hearing aides. UAL in room, hx of TASHA and uses CPAP when resting or sleeping. RT consult with Akira to promoted sputum specimen collection which is still needed. Eval by Dr. Lovelace. Continue plan of care, report will be provided to oncoming shift RN.
--- NOTE | 2023-04-18 14:13 | RESP.RT ---
Patient was evaluated for induced sputum. Patient has good forceful clear non-productive cough. Able to clear secretions when present. Patient cough is clear, no chest rattle, cough is not moist, or coarse sounding. Sample jar left in room in case patient is able to cough a sample up.
--- NOTE | 2023-04-18 15:33 | PC.NURSE ---
addendum, pt remains on neutropenic precautions.
--- NOTE | 2023-04-18 22:26 | PC.NURSE ---
Shift [id number]- Patient denies pain throughout shift. Occasional cough noted- no sputum produced; per patient Ain't gonna happen. I haven't coughed anything up in my life. He is up ad hamlet. Eating, drinking, voiding without issue. Remains on RA, denies SOB.
[2023-04-19 05:50] VITALS: BP 107/60; PULSE 53; RESP 16; TEMP 36.8; O2SAT 96
[2023-04-19] MEDS: OMEPRAZOLE 20 MG CAPSULE DR 40 MG PO (05:54)
[2023-04-19 06:31] LABS: Basophils Percent Auto 1.9 % (0.0-3.0); Eosinophils Percent Auto 26.2 % (0.0-7.0); Hematocrit 27.8 % (37.0-53.0); Hemoglobin* 8.6 gm/dL (13.5-17.5); Immature Granulocytes Pct Auto 4.9 %; Lymphocytes Percent Auto 9.7 % (20-44); Mean Corpuscular HGB Conc 31 gm/dL (32-36); Mean Corpuscular Hemoglobin 23 pg (26-34); Mean Corpuscular Volume 75 fL (80-100); Monocytes Percent Auto 24.3 % (0.0-11.0); Platelet Count* 100 K/uL (140-440); RDW Coefficient of Variation % 15.3 % (11.5-15.5)
[2023-04-19 06:47] LABS: Chloride* 99 mmol/L (96-114); Potassium* 3.4 mmol/L (3.6-5.1); Sodium* 138 mmol/L (135-149)
[2023-04-19 06:50] LABS: Anion Gap 15 mEq/L (7-15); Blood Urea Nitrogen* 33 mg/dL (7-30); Carbon Dioxide* 24 mmol/L (20-32); Creatinine* 1.8 mg/dL (0.5-1.5); Est. Creatinine Clearance* 34.92; Estimated Glomerular Filt Rate 38 ml/min; Glucose* 184 mg/dL (60-115)
[2023-04-19 06:51] LABS: Calcium* 8.2 mg/dL (8.4-10.6)
[2023-04-19 07:00] VITALS: BP 113/67; PULSE 58; RESP 16; TEMP 36.6; O2SAT 95
[2023-04-19 07:08] LABS: Slide Review Reflex Yes; White Blood Count* 1.03 K/uL (4.50-11.00)
[2023-04-19 07:21] LABS: Slide Review Acceptable Review (Acceptable)
--- NOTE | 2023-04-19 08:46 | PC.NURSE ---
Pt alert and oriented x3. Afebrile. Pt reported 4/10 pain in lower extremities, pain medications discussed pt refused stating I am fine at the movement. Pt's posterior lung sounds have course crackles and inspiratory and expiratory wheezing. Pt continues to have moist cough with no production. Pt is up ad hamlet in room. Pt slept throughout most of night. Night uneventful.
[2023-04-19] MEDS: ACYCLOVIR 200 MG CAPSULE 400 MG PO (08:51)
[2023-04-19] MEDS: carvediloL 6.25 MG TABLET 9.375 MG PO (08:52)
[2023-04-19] MEDS: ASPIRIN 81 MG TAB.CHEW PO (08:53)
[2023-04-19] MEDS: MULTIVITAMIN/MINERALS 1 TABLET 1 TAB PO (08:53)
[2023-04-19] MEDS: TORSEMIDE 20 MG TABLET PO (08:53)
[2023-04-19] MEDS: ACETAMINOPHEN 650 MG TABLET ER 1300 MG PO (08:53)
[2023-04-19] MEDS: ESCITALOPRAM 10 MG TABLET PO (08:53)
[2023-04-19] MEDS: LOSARTAN POTASSIUM 50 MG TABLET 100 MG PO (08:53)
[2023-04-19] MEDS: SODIUM CHLORIDE 0.9 % (FLUSH) 10 ML SYRINGE 5 ML IVF ×2 (08:54→09:49)
[2023-04-19] MEDS: CEFEPIME HCL 2 GM in 0.9 % SODIUM CHLORIDE Mini-bag 100 ML IVPB (09:48)
--- NOTE | 2023-04-19 10:27 | P.DS_ITS ---
DS: Providers Provider Date Seen: 04/19/23 Date of admission: 04/17/23 00:15 Primary care physician: Mathew Simpson MD Admitting Clinician: Liam Davis MD Consults: 04/16/23 23:16 Consult to Occupational Therapy [CONS] Routine Comment: Reason(s) for OT Consult:: Evaluate and Treat Any Restrictions?:: No Restrictions Consult to Physical Therapy [CONS] Routine Comment: Reason(s) for PT Consult:: Evaluate and Treat Any Restrictions?:: No Restrictions 04/17/23 02:13 Consult to Occupational Therapy [CONS] Routine Comment: Reason(s) for OT Consult:: Evaluate and Treat Any Restrictions?:: No Restrictions Consult to Physical Therapy [CONS] Routine Comment: Reason(s) for PT Consult:: Evaluate Ambulation Any Restrictions?:: No Restrictions 04/17/23 10:22 Consult to Physician [CONS] Routine Comment: thoracentesis, mod-large pl effusion. r/o empyema. Consulting Provider: General Surgery, [facility] Has provider been notified: Yes Attending Physician on discharge: Stephanie Reaves [facility] Date [facility] Discharge: 04/19/23 DS: Diagnosis Discharge Diagnosis (1) Febrile neutropenia: Status: Acute Problem details: -Chronic neutropenia, acute fever and weakness. Has remained afebrile since admission -CT shows moderate-large left pleural effusion, left lower lobe opacity -Continued Cefepime during hospitalization. Discharged on oral Augmentin 5 day course as discussed with pharmacy. Considered Levaquin as well however opted for Augmentin given age. -UA unremarkable, BCx2 NGTD. MRSA negative. Influenza/SARs/RSV negative. CRP uptrending 4.5 from 3.7 -Strep test negative. Follow with daily CBC, BMP -sputum culture - likely unable to produce a sample, strep pneumo/Legionella negative -General Surgery consulted - thoracentesis 04/18 for left pleural effusion, rule out empyema -Absolute neutrophil count is unlikely to increase substantially given its chronicity. Consider infections caused by immunosuppression as well. -04/17 discussed with Ebony Lozoya RN, from [facility] team. Agrees with current plan without further recommendations. Team (Dr. Bryson, Ebony, Juanita - RNs) available for questions/recommendations as needed. [phone] [phone]. -fevers resolved, no further fevers following admission. (2) Pleural effusion: Status: Chronic Problem details: -history of cardiac amyloidosis. Routine therapeutic thoracentesis-scheduled for thoracentesis 04/18/2023 at [facility] (being done locally on 04/18) -General Surgery following -pleural fluid cell count and differential, total protein, LDH, glucose, cholesterol, culture, Gram stain, cytology, pH ordered -04/[address] Mitchell (400 mL fluid pulled). Results reviewed, no concern for empyema. Cytology remain pending at time of discharge. Follow-up with PCP. CXR reviewed. -will follow-up with heme Onc team for ongoing routine therapeutic paracentesis (3) Cardiac amyloidosis: Status: Acute Problem details: -has been prescribed Vyndamax but he tells me he is unable to afford it so has not taken it. Working with [facility] and [facility] [employer] for options (4) Chronic a-fib: Status: Chronic Problem details: -continue carvedilol -not currently on anticoagulation. Previously on warfarin, stopped December 2022 due to GI bleed. Offered LAAO but declined -on enoxaparin during hospitalization -per [facility] visit 04/09/23, will need follow-up with PCP to determine re-initiation of anticoagulation (5) Thrombocytopenia: Status: Chronic Problem details: -chronic in setting of previous chemotherapy, which has been held -remains stable, continue to monitor -outpatient follow-up with PCP, heme Onc team to follow labs (6) Follicular lymphoma grade ii, lymph nodes of multiple sites: Status: Chronic Problem details: -treated at [facility] from July to October of 2022. Due to thrombocytopenia and neutropenia they stopped treatment at that point. His white count and platelets have not recovered. WBC 1.03 on day of discharge. Recheck following discharge. -continues to be followed by Heme-Onc at [facility], Dr. 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 Stable at 1.8 on day of discharge, continue to follow with PCP. (8) Uncontrolled type 2 diabetes mellitus: Status: Acute Problem details: -most recent A1c 9.2 -continue home dose glargine 30 units q.h.s. -diabetic diet, glucose checks ACHS, insulin sliding scale- adjusting dosing as necessary DS: Summary Hospital Course Hospital Course: [age] year old male past medical history significant for follicular lymphoma, chronic thrombocytopenia, atrial fibrillation not currently on anticoagulation, BPH, cardiac amyloidosis, pleural effusions, hypertension, CKD stage 3 was admitted to the medical floor for further management neutropenic fever with suspected left retrocardiac pneumonia. Course of care and details as noted above. Remainder of chronic medical comorbidities were monitored and managed with home medications. Patient will follow-up with [facility] Onc team in the next 1-2 days. Has a follow-up with appointment with his PCP tomorrow as well. Will need repeat CBC, BMP. Follow course of resolution while on antibiotic. Thoracentesis completed on 04/18 with 400 mL removed. Status at Discharge Overall status at discharge: patient is back to baseline Time Spent with Patient Time attestation: Total time spent providing and/or coordinating discharge services: Time spent: Greater than 30 minutes Exam Narrative: Exam Narrative: PHYSICAL EXAM General: Pleasant, conversant, NAD Cardiovascular: Regular rate Pulmonary: No dyspnea on room air Neurological: Alert, answering questions appropriately, cranial nerves intact Skin: Warm, dry. Const: Vital Signs, click to edit/add: Vital Signs - 24 hr 04/18/23 11:00 04/18/23 15:45 04/18/23 19:05 Temperature 98.2 F 98.2 F 98.2 F Pulse Rate [Left A pical] 62 60 68 Pulse Rate [Left P ulse Oximeter] 62 Respiratory Rate 18 18 16 Blood Pressure [Le ft Arm] 135/73 101/59 L 116/59 L Pulse Oximetry 96 95 98 Oxygen Delivery Me thod Room Air CPAP 04/18/23 23:00 04/18/23 23:00 04/19/23 05:50 Temperature 98.5 F 98.2 F Pulse Rate [Left A pical] Pulse Rate [Left P ulse Oximeter] 64 65 53 L Respiratory Rate 18 16 16 Blood Pressure [Le ft Arm] 126/64 107/60 Pulse Oximetry 99 96 Oxygen Delivery Me thod CPAP Room Air 04/19/23 07:00 Temperature 98 F Pulse Rate [Left A pical] 58 L Pulse Rate [Left P ulse Oximeter] 58 L Respiratory Rate 16 Blood Pressure [Le ft Arm] 113/67 Pulse Oximetry 95 Oxygen Delivery Me thod Room Air DS: Data Data Completed and Pending Completed studies during hospitalization: CT chest abdomen pelvis: Moderate to large simple left pleural effusion. Patchy opacity in the left lower lobe, favor compression atelectasis or infection. Small amount of high-density fluid around the spleen and left kidney of unknown etiology. No splenic or renal laceration identified. CAD. Splenic hemangioma. Cholelithiasis. Patchy opacity in the left lower lobe, favor compressive atelectasis over infection. Small amount of high density fluid around the spleen and left kidney of unknown etiology. No splenic or renal laceration identified. Coronary artery disease. Splenic hemangioma. Cholelithiasis. Status post left hip arthroplasty and posterior fusion hardware at L4-L5. Patchy opacity in the left lower lobe, favor compressive atelectasis over infection. Small amount of high density fluid around the spleen and left kidney of unknown etiology. No splenic or renal laceration identified. Coronary artery disease. Splenic hemangioma. Cholelithiasis. Status post left hip arthroplasty and posterior fusion hardware at L4-L5. MRSA negative, BC x2 NGTD On day of discharge, WBC 1.03, hemoglobin 8.6, platelets 100, neutrophils 33, lymphocytes 9.7, potassium 3.4, creatinine 1.8 Pleural fluid pH 8.5, WBC 41, RBC 2000, glucose 189, total protein 2.8, LDH 122, cholesterol < 50, gram stain and culture show no growth after 24 hours CXR status post thoracentesis shows lungs are well expanded. Left retrocardiac opacity. No pulmonary edema. Left pleural effusion does not appear appreciably changed. No pneumothorax. No pneumomediastinum. Pending studies at discharge: Pleural fluid cytology results Labs on day of discharge: Labs from last 24 hours 04/19/23 04/18/23 05:44 12:16 WBC 1.03 L* RBC 3.70 L Hgb 8.6 L Hct 27.8 L MCV 75 L MCH 23 L MCHC 31 L RDW Coeff of Shukri 15.3 Plt Count 100 L Neut % (Auto) 33.0 L Lymph % (Auto) 9.7 L Mclennan % (Auto) 24.3 H Eos % (Auto) 26.2 H Baso % (Auto) 1.9 Neut # (Auto) 0.30 L Lymph # (Auto) 0.10 L Mclennan # (Auto) 0.30 Eos # (Auto) 0.30 Baso # (Auto) 0.00 Abs Immat Gran (auto) 0.10 Imm/Tot Granulo (auto) 4.9 Diff Slide Review Acceptable Review Sodium 138 Potassium 3.4 L Chloride 99 Carbon Dioxide 24 Anion Gap 15 BUN 33 H Creatinine 1.8 H Estimated Creat Clear 34.92 Estimated GFR 38 Glucose 184 H Calcium 8.2 L Fluid Volume 20 Fluid Color Xanthochromic A Fluid Appearance Clear Fluid pH 8.5 Fluid WBC 41 Fluid RBC 2000 Fluid Polynuclear WBCs 5 Fluid Mononuclear WBCs 95 Fluid Glucose 189 Fluid Total Protein 2.8 Fluid LDH 122 Fluid Cholesterol < 50 Cytology Interpretat Pending Preliminary micro results at discharge 04/18/23 12:16 Body Fluid Culture - Preliminary Pleural Fluid NO GROWTH AFTER 24 HOURS 04/16/23 19:00 Blood Culture - Preliminary Blood NO GROWTH AFTER 48 HOURS 04/16/23 18:20 Blood Culture - Preliminary Blood NO GROWTH AFTER 48 HOURS Discharge Plan Discharge Disposition: Home, Self-Care Date of Admission: 04/17/23 00:15 Attending Provider on Discharge: Stephanie Reaves Consulting Providers: Gemma Mas; Mark Anthony Bolanos; Jannette Mitchell Primary Care Provider: Mathew Simpson Condition: Improved Anticipated Discharge Date/Time: 04/19/23 13:16 Discharge Medications: New amoxicillin-pot clavulanate [Augmentin XR] 1,000-62.5 mg tablet extended release 12 hr 1 tab PO BID Qty: 10 0RF Continued acetaminophen 650 mg tablet extended release 1,300 mg PO BID nitroglycerin 0.4 mg tablet, sublingual 0.4 mg sublingual Q5M PRN Patient Comments: Place 1 tablet (0.4 mg total) under the tongue every 5 (five) minutes as ne eded for chest pain. May repeat every 5 minutes for up to 3 doses losartan 100 mg tablet 100 mg PO DAILY Qty: 90 3RF multivitamin [Daily Multi-Vitamin] Tablet 1 tab PO DAILY diclofenac sodium [Voltaren Arthritis Pain] 1 % gel 2 g topical QID PRN acyclovir 400 mg tablet 400 mg PO BID carvedilol 3.125 mg tablet 9.375 mg PO BID Qty: 540 3RF Rx Instructions: must administer with a meal/food pantoprazole 40 mg tablet,delayed release (DR/EC) 40 mg PO BID insulin glargine 100 unit/mL (3 mL) insulin pen 30 unit subcut HS manganese 15 mg capsule 15 mg PO DAILY escitalopram oxalate [Lexapro] 10 mg tablet 10 mg PO DAILY aspirin 81 mg tablet,chewable 81 mg PO DAILY ketoconazole 2 % cream 1 applic topical DAILY PRN amoxicillin 500 mg capsule See Rx Instructions .ROUTE .COMPLEX Qty: 4 3RF Dose Instruction: Take 4 capsules (2000mg) by mouth 1 hour prior to dental appointment. Rx Instructions: Take 4 capsules (2000mg) by mouth 1 hour prior to dental appointment. torsemide 20 mg tablet 20 mg PO DAILY Discharge Orders: Discharge Order (Routine); Ordered 04/19/23 Ordered By: Stephanie Reaves Patient Education: Amoxicillin/Clavulanate Potassium (By mouth), Fever in Adults (GEN), Neutropenia (GEN) Additional Instructions: Finish the antibiotics you were prescribed. You may use Mucinex twice daily. Restart your Flonase for your allergy type symptoms. Follow-up with your Heme Onc team in the next 1-3 days. Activity Level: Activity as Tolerated Discharge Diet: Diabetic Follow Up Appointments: Mathew Simpson MD [Primary Care Provider] - 04/20/23 (As previously scheduled. Post hospital follow-up for neutropenic fever, suspected left retrocardiac pneumonia. Recheck WBC, creatinine) Forms: [facility] Info Instructions
[2023-04-19 11:00] VITALS: BP 119/67; PULSE 60; RESP 16; TEMP 36.9; O2SAT 96
--- NOTE | 2023-04-19 14:14 | PC.NURSE ---
BG levels 173 and 210 today, sliding scale coverage per protocol. UAL in room. Good appetite, VS WNL parameters. Eval by Dr. Lovelace. Neutropenic precautions continue. Pt will be discharged when papers completed.
--- NOTE | 2023-04-19 15:40 | PC.NURSE ---
Pt and dtr Garrison verbalized understanding of d/c diagnosis, home meds, new RX for ATB, f/up appt and symptoms to report urgently to MD. Pt d/c'ed via w/c @1450 pm with all personal belongings to own home with dtlobito Ji as transportation.
== END 2023-04-19 14:50 | disposition home or self-care (01) | DRG 809 ==
LOC: ED 19:00 → MEDSURG 04-17 07:50
PROVIDERS: Physician Assistant; Admitting Provider Family Medicine; Emergency Provider Emergency Medicine; PCP Family Medicine; Visit Provider Family Medicine
DX: D70.1 Agranulocytosis secondary to cancer chemotherapy (principal); C82.18 Follicular lymphoma grade II, lymph nodes of multiple sites; J91.8 Pleural effusion in other conditions classified elsewhere; E85.4 Organ-limited amyloidosis; I43 Cardiomyopathy in diseases classified elsewhere; I48.20 Chronic atrial fibrillation, unspecified; D69.59 Other secondary thrombocytopenia; T45.1X5A Adverse effect of antineoplastic and immunosuppressive drugs, initial encounter; R50.81 Fever presenting with conditions classified elsewhere; I12.9 Hypertensive chronic kidney disease with stage 1 through stage 4 chronic kidney disease, or unspecified chronic kidney disease; E11.22 Type 2 diabetes mellitus with diabetic chronic kidney disease; E11.65 Type 2 diabetes mellitus with hyperglycemia; N18.32 Chronic kidney disease, stage 3b; Z79.4 Long term (current) use of insulin; G47.419 Narcolepsy without cataplexy; N40.1 Benign prostatic hyperplasia with lower urinary tract symptoms; R33.8 Other retention of urine; F32.A Depression, unspecified; Z99.89 Dependence on other enabling machines and devices; Z98.61 Coronary angioplasty status; Z98.1 Arthrodesis status; Z96.642 Presence of left artificial hip joint
CPT/HCPCS: 32555; 36415; 71045; 71260; 74177; 80048; 80076; 81001; 82945; 82962; 83605; 83615; 83735; 83986; 84157; 84311; 85025; 86140; 87040; 87070; 87081; 87205; 87449; 87631; 87651; 87899; 88112; 89051; 97165; 99284; 99285; A9153; A9270; J0692; J1650; J2543; Q9967

== ENCOUNTER 2023-04-20 14:11 | Outpatient (CLI) | payer MEDICARE, OTHER, SELFPAY | END 2023-04-20 14:12 | disposition home or self-care (01) | PROVIDERS: PCP Family Medicine; Visit Provider Family Medicine | DX: D64.9 Anemia, unspecified (principal); N18.32 Chronic kidney disease, stage 3b; I10 Essential (primary) hypertension; E78.5 Hyperlipidemia, unspecified; E66.9 Obesity, unspecified; E11.21 Type 2 diabetes mellitus with diabetic nephropathy; D70.9 Neutropenia, unspecified; I48.20 Chronic atrial fibrillation, unspecified; R50.81 Fever presenting with conditions classified elsewhere | CPT/HCPCS: 82607; 82728; 82747; 83010; 83540; 83615; 85045 ==

== ENCOUNTER 2023-04-21 14:36 | Outpatient (CLI) | payer MEDICARE, OTHER, SELFPAY | END 2023-04-21 14:37 | disposition home or self-care (01) | LOC: NFLDREF 04-23 14:02 | PROVIDERS: PCP Family Medicine; Referring Provider Family Medicine; Visit Provider Family Medicine | DX: D70.9 Neutropenia, unspecified (principal); R50.81 Fever presenting with conditions classified elsewhere; I48.20 Chronic atrial fibrillation, unspecified; D64.9 Anemia, unspecified; N18.30 Chronic kidney disease, stage 3 unspecified; E11.9 Type 2 diabetes mellitus without complications; E11.21 Type 2 diabetes mellitus with diabetic nephropathy; I13.10 Hypertensive heart and chronic kidney disease without heart failure, with stage 1 through stage 4 chronic kidney disease, or unspecified chronic kidney disease; N18.32 Chronic kidney disease, stage 3b; I48.11 Longstanding persistent atrial fibrillation; C85.90 Non-Hodgkin lymphoma, unspecified, unspecified site | CPT/HCPCS: 82747 ==

== ENCOUNTER 2023-04-26 17:31 | Emergency (ER) | payer MEDICARE, OTHER, SELFPAY ==
[2023-04-26 17:48] VITALS: BP 164/79; PULSE 68; RESP 18; TEMP 36.7; O2SAT 96; BMI 28.8
--- NOTE | 2023-04-26 21:32 | CRLHL7_ITS ---
For Patients: As a result of the Century Cures Act, medical imaging exams and procedure reports are released immediately into your electronic medical record. You may view this report before your referring provider. If you have questions, please contact your health care provider. Indication: Cough. Technique: PA and lateral (2) views of the chest. Comparison: 04/18/2023, chest CT 04/16/2023. Findings: Heart size is within normal limits given portable AP technique. Left pleural effusion with adjacent basilar opacity is similar to prior exam. No new pulmonary opacities. No pneumothorax. No acute osseous abnormality. Impression: 1. No significant change in small left pleural effusion with adjacent consolidation likely atelectasis. Superimposed pneumonia not excluded. 2. Lungs otherwise clear Dictated by Liam Renee MD @ 04/26/2023 10:37:50 PM (Electronically Signed)
[2023-04-26 21:58] LABS: Basophils Percent Auto 2.1 % (0.0-3.0); Eosinophils Percent Auto 9.1 % (0.0-7.0); Hemoglobin* 9.4 gm/dL (13.5-17.5); Immature Granulocytes Pct Auto 9.1 %; Mean Corpuscular HGB Conc 30 gm/dL (32-36); Mean Corpuscular Hemoglobin 23 pg (26-34); Mean Corpuscular Volume 75 fL (80-100); Monocytes Percent Auto 20.3 % (0.0-11.0); Neutrophils Percent Auto 52.4 % (42.0-72.0); Platelet Count* 120 K/uL (140-440); RDW Coefficient of Variation % 15.7 % (11.5-15.5); Red Blood Count 4.15 m/uL (4.30-5.90)
[2023-04-26 22:22] LABS: Albumin* 3.8 g/dL (3.3-5.0); Chloride* 103 mmol/L (96-114); Sodium* 138 mmol/L (135-149)
[2023-04-26 22:23] LABS: Potassium* 3.9 mmol/L (3.6-5.1)
[2023-04-26 22:25] LABS: Creatinine* 1.4 mg/dL (0.5-1.5); Estimated Glomerular Filt Rate 51 ml/min
[2023-04-26 22:26] LABS: Alanine Aminotransferase* 19 U/L (4-50); Alkaline Phosphatase* 107 U/L (40-150); Anion Gap 7 mEq/L (7-15); Aspartate Amino Transferase* 36 U/L (12-35); Bilirubin Total* 0.7 mg/dL (0.1-1.5); Blood Urea Nitrogen* 19 mg/dL (7-30); Carbon Dioxide* 28 mmol/L (20-32); Glucose* 118 mg/dL (60-115); Total Protein* 6.3 g/dL (6.0-8.3)
[2023-04-26 22:29] LABS: C Reactive Protein* 3.4 mg/dL (0.5-1.0)
[2023-04-26 22:36] LABS: PCR FLU A Negative PCR FLU A (Negative); PCR FLU B Negative PCR FLU B (Negative); PCR RSV Negative PCR RSV (Negative)
[2023-04-26 22:40] LABS: NT Pro B Type NatriureticPept* 1870 pg/mL
[2023-04-26 22:47] LABS: SARS PCR* Negative SARS-CoV-2 (Negative)
[2023-04-26 22:51] LABS: Slide Review Reflex Yes; White Blood Count* 1.43 K/uL (4.50-11.00)
[2023-04-26 22:53] LABS: Slide Review Acceptable Review (Acceptable)
--- NOTE | 2023-04-26 23:36 | ED_ITS ---
HPI - General Adult General Date Seen: 04/26/23 Chief complaint: Cough Stated complaint: Pulmonary problems Time Seen by Provider: 04/26/23 20:58 Source: patient and family Mode of arrival: ambulatory Limitations: no limitations History of Present Illness HPI narrative: Patient 77-year-old male with complex past medical history including lymphoma, currently not under active treatment, as well as cardiac amyloidosis with chronic recurrent left pleural effusion. I saw him at recently with fever, he is chronically neutropenic, and he was admitted to the hospital with unclear source of infection. He had a fever on admission but did not have further fevers, cultures were all negative, he was treated with antibiotics in the hospital and then discharged 1 week ago on Augmentin which he has since finished. He feels like he has been really run down, he has a cough which he says is persistent in keeping him from sleeping. He has felt like he is running low-grade fevers in the 99 says, nothing higher than that. He has not had significant shortness of breath. He gets scheduled thoracentesis for his pleural effusion, and his last thoracentesis was on April 18 while in the hospital. Those cultures were negative as well. Related Data Home Medications Medication Instructions Recorded Confirmed acetaminophen 650 mg 1,300 mg PO BID 01/09/22 04/20/23 tablet,extended release diclofenac sodium 1 % topical gel 2 g topical QID PRN 03/13/22 04/20/23 (Voltaren Arthritis Pain) multivitamin (Daily Multi-Vitamin 1 tab PO DAILY 03/13/22 04/20/23 tablet) aspirin 81 mg chewable tablet 81 mg PO DAILY 07/07/22 04/20/23 ketoconazole 2 % topical cream 1 applic topical DAILY PRN 07/07/22 04/20/23 nitroglycerin 0.4 mg sublingual 0.4 mg sublingual Q5M PRN 07/11/22 04/20/23 tablet acyclovir 400 mg tablet 400 mg PO BID 08/15/22 04/20/23 torsemide 20 mg tablet 20 mg PO DAILY 03/02/23 04/20/23 escitalopram oxalate 10 mg tablet 10 mg PO DAILY 04/17/23 04/20/23 (Lexapro) insulin glargine 100 unit/mL (3 30 unit subcut HS 04/17/23 04/20/23 mL) subcutaneous pen manganese 15 mg capsule 15 mg PO DAILY 04/17/23 04/20/23 pantoprazole 40 mg tablet,delayed 40 mg PO BID 04/17/23 04/20/23 release Previous Rx's Medication Instructions Recorded amoxicillin 500 mg capsule See Rx Instructions .Route 07/31/22 .COMPLEX #4 caps carvedilol 3.125 mg tablet 9.375 mg (3 x 3.125 mg) PO BID 01/16/23 #540 tabs losartan 100 mg tablet 100 mg PO DAILY #90 tabs 03/30/23 amoxicillin-potassium clavulanate 1 tab PO BID #10 tabs 04/19/23 1,000 mg-62.5 mg tablet,ext.rel 12hr (Augmentin XR) blood-glucose meter,continuous #1 ea 04/20/23 (Dexcom G7 Tool Grinder Operator External) blood-glucose sensor (Dexcom G7 #3 ea 04/20/23 Sensor device) iron,carbonyl 65 mg-vitamin C 125 1 tab PO BID #60 tabs 04/21/23 mg tablet,delayed release (Vitron-C) codeine 10 mg-guaifenesin 100 mg/5 5 ml PO Q6H PRN #120 mL 04/26/23 mL oral liquid (Guaifenesin AC) Allergies Allergy/AdvReac Type Severity Reaction Status Date / Time lovastatin Allergy Severe Throat and Verified 04/20/23 13:33 chest tightness niacin Allergy Severe Throat and Verified 04/20/23 13:33 chest tightness duloxetine Allergy Intermediate throat and Verified 04/20/23 13:33 chest tightness sertraline Allergy Intermediate Dizzy, Verified 04/20/23 13:33 headaches and not right in the head methyldopa Allergy Mild Chills, Verified 04/20/23 13:33 fever Acjtcjp-QJC-NnR Reductase Allergy Verified 04/20/23 13:33 Inhibitor COVID-19 (Adenovirus) Vaccine Allergy Severe Myocarditis Uncoded 04/20/23 13:33 paper tape AdvReac Severe Takes skin Uncoded 04/20/23 13:33 off Review of Systems Status of ROS: Reports: 10 or more systems reviewed and unremarkable except as noted in History and below [facility] Medical History CPAP (continuous positive airway pressure) dependence ?Z99.89 - Dependence on other enabling machines and devices (ICD-10) Insulin dependent diabetes mellitus with complications Anemia ?D64.9 - Anemia, unspecified (ICD-10) Urinary incontinence ?R32 - Unspecified urinary incontinence (ICD-10) Febrile neutropenia ?D70.9 - Neutropenia, unspecified (ICD-10) ?R50.81 - Fever presenting with conditions classified elsewhere (ICD-10) Cardiac dysrhythmia, unspecified ?I49.9 - Cardiac arrhythmia, unspecified (ICD-10) GI (gastrointestinal bleed) ?K92.2 - Gastrointestinal hemorrhage, unspecified (ICD-10) Depression ?F32.A - Depression, unspecified (ICD-10) BPH (benign prostatic hyperplasia) ?N40.0 - Benign prostatic hyperplasia without lower urinary tract symptoms (ICD-10) Cardiac amyloidosis ?E85.4 - Organ-limited amyloidosis (ICD-10) ?I43 - Cardiomyopathy in diseases classified elsewhere (ICD-10) Depression ?F32.A - Depression, unspecified (ICD-10) 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 ?I24.0 - Acute coronary thrombosis not resulting in myocardial infarction (ICD-10) Pleural effusion ?J90 - Pleural effusion, not elsewhere classified (ICD-10) Pleural effusion ?J90 - Pleural effusion, not elsewhere classified (ICD-10) Lymphoma ?C85.90 - Non-Hodgkin lymphoma, unspecified, unspecified site (ICD-10) Narcolepsy ?G47.419 - Narcolepsy without cataplexy (ICD-10) Weight loss ?R63.4 - Abnormal weight loss (ICD-10) Thrombocytopenia (~08/17/15) ?D69.6 - Thrombocytopenia, unspecified (ICD-10) Serum creatinine raised ?R79.89 - Other specified abnormal findings of blood chemistry (ICD-10) Osteoarthritis of multiple joints ?M15.9 - Polyosteoarthritis, unspecified (ICD-10) Fever ?R50.9 - Fever, unspecified (ICD-10) Fatigue ?R53.83 - Other fatigue (ICD-10) Edema of lower extremity ?R60.0 - Localized edema (ICD-10) Abdominal pain ?R10.9 - Unspecified abdominal pain (ICD-10) Surgical History History of percutaneous coronary intervention ?Z98.61 - Coronary angioplasty status (ICD-10) History of lumbar fusion (09/09/12) ?Z98.1 - Arthrodesis status (ICD-10) History of discectomy (~08/2016) ?Z98.890 - Other specified postprocedural states (ICD-10) Status post total hip replacement, 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) ?Z96.642 - Presence of left artificial hip joint (ICD-10) Status post tonsillectomy and adenoidectomy ?Z90.89 - Acquired absence of other organs (ICD-10) History of umbilical hernia repair ?Z98.890 - Other specified postprocedural states (ICD-10) ?Z87.19 - Personal history of other diseases of the digestive system (ICD-10) History of nasal septoplasty ?Z98.890 - Other specified postprocedural states (ICD-10) History of carpal tunnel surgery ?Z98.890 - Other specified postprocedural states (ICD-10) Family History Father Colon cancer Lung cancer Mother Diabetes FH: thyroid cancer Kidney disease High blood pressure Social History Narrative: He lives with his . He gets his specialty medical care at [facility]. He does not smoke. He does not drink alcohol. What is your current living situation?: I presently have a place to live Problems where you live: no known problems Problems where you live details: na In the past 12 months, utilities in danger of being shut off: no In past 12 months, lack of transportation kept you from medical appts, meetings, work, or getting things needed for daily living: no In the past 12 mos, have been you worried that your food would run out before you had money to buy more?: never true In the past 12 mos, the food you bought just didn't last and you didn't have money to buy more?: never true Highest level of school completed/degree received: Bachelor's degree Smoking Status: Never smoker Do you use any of these nicotine containing products: None Second hand tobacco smoke exposure: No How often do you have a drink containing alcohol: never How often do you have six or more drinks on one occasion: Never AUDIT-C Alcohol total score: 0 Non-prescribed substance use: denies use Caffeine: Yes How often does anyone, including family, friends and others, physically hurt you : never How often does anyone, including family, friends and others, insult or talk down to you: never How often does anyone, including family, friends and others, threaten you with harm: never How often does anyone, including family, friends and others, scream or curse at you: never Little interest or pleasure in doing things: nearly every day Feeling down, depressed, or hopeless: nearly every day service: No Exam Narrative: Exam Narrative: Vital signs as noted above. In general, an alert, well-appearing patient. Breathing easily. Head: Normocephalic, atraumatic. Eyes: Pupils are equal reactive. Extraocular movements are full. Conjunctivae are normal. ENT: Mucous membranes are moist. Neck: Supple without lymphadenopathy. Heart: Regular rate and rhythm. Lungs: A few scattered coarse rales, no increased work of breathing, no wheezes. Abdomen: Soft and nontender. No organomegaly. Extremities: Well perfused. No edema. No calf tenderness. Pulses intact. Neurologic: Patient is alert and oriented to person and place. Speech is fluent. Face is symmetric. Moves all extremities equally. Affect: Normal. Skin: Warm and dry. Well perfused. Const: Vital Signs, click to edit/add: Vital Signs - 24 hr 04/26/23 17:48 Temperature 98.0 F Pulse Rate [Pulse Oximeter] 68 Respiratory Rate 18 Blood Pressure [Ri ght Upper Arm] 164/79 H Pulse Oximetry 96 Oxygen Delivery Me thod Room Air Documenting provider has reviewed patient's vital signs: yes Course Course ED Course: I did a chest x-ray, two view, which continues to show left pleural effusion, stable. Final radiology read of the x-ray is as follows:Findings: Heart size is within normal limits given portable AP technique. Left pleural effusion with adjacent basilar opacity is similar to prior exam. No new pulmonary opacities. No pneumothorax. No acute osseous abnormality. Impression: 1. No significant change in small left pleural effusion with adjacent consolidation likely atelectasis. Superimposed pneumonia not excluded. 2. Lungs otherwise clear Labs notable for persistent leukopenia, this is chronic. White blood cell count is 1.4. Hemoglobin is 9.4 and platelets are 120, these are at baseline. Metabolic panel is normal, blood sugar 118, LFTs unremarkable. CRP mildly elevated at 3.4. He does have an elevated BNP of 18 70, I do not see a previous 1 recently for comparison. I do not see evidence on chest x-ray of pulmonary edema, he does not have any peripheral edema, and I suspect his primary problem is not congestive heart failure tonight. I did do a COVID this was negative. I have reviewed his x-ray findings with the patient and his . As to whether not these represent atelectasis or consolidation, he can not be sure. He is complaining of a cough, he has chronic leukopenia, and his feels that he seems to be getting worse rather than better, so their preference would be to go ahead and treat with antibiotics. Will prescribe doxycycline. Advised that if he is worsening despite this treatment he should be seen again promptly. I also given Robitussin with codeine to try at night to try and get him some better sleep without coughing. Follow-up with primary care and specialists as planned. Vital Signs Vital signs: Initial Vital Signs Temperature 98.0 F 04/26/23 17:48 Temperature Source Temporal Artery Scan 04/26/23 17:48 Pulse Rate 68 04/26/23 17:48 Pulse Rhythm Regular 04/26/23 17:48 Respiratory Rate 18 04/26/23 17:48 Blood Pressure 164/79 H 04/26/23 17:48 Blood Pressure Mean 107 H 04/26/23 17:48 Blood Pressure Position Sitting 04/26/23 17:48 Pulse Oximetry 96 04/26/23 17:48 Oxygen Delivery Method Room Air 04/26/23 17:48 Vital Signs Temperature 98.0 F 04/26/23 17:48 Pulse Rate 68 04/26/23 17:48 Respiratory Rate 18 04/26/23 17:48 Blood Pressure 164/79 H 04/26/23 17:48 Pulse Oximetry 96 04/26/23 17:48 Oxygen Delivery Method Room Air 04/26/23 17:48 Temperature 98.0 F 04/26/23 17:48 Pulse Rate 68 04/26/23 17:48 Respiratory Rate 18 04/26/23 17:48 Blood Pressure 164/79 H 04/26/23 17:48 Pulse Oximetry 96 04/26/23 17:48 Oxygen Delivery Method Room Air 04/26/23 17:48 Medical Decision Making Lab Data Labs: Lab Results 04/26/23 04/26/23 Range/Units 21:32 21:47 WBC 1.43 L* (4.50-11.00) K/uL RBC 4.15 L (4.30-5.90) m/uL Hgb 9.4 L (13.5-17.5) gm/dL Hct 31.0 L (37.0-53.0) % MCV 75 L (80-100) fL MCH 23 L (26-34) pg MCHC 30 L (32-36) gm/dL RDW Coeff of Shukri 15.7 H (11.5-15.5) % Plt Count 120 L (140-440) K/uL Neut % (Auto) 52.4 (42.0-72.0) % Lymph % (Auto) 7.0 L (20-44) % [place] % (Auto) 20.3 H (0.0-11.0) % Eos % (Auto) 9.1 H (0.0-7.0) % Baso % (Auto) 2.1 (0.0-3.0) % Neut # (Auto) 0.70 L (1.7-7.0) K/uL Lymph # (Auto) 0.10 L (0.90-2.90) K/uL [place] # (Auto) 0.30 (0.00-0.90) K/UL Eos # (Auto) 0.10 (0.00-0.50) K/uL Baso # (Auto) 0.00 (0.00-0.30) K/uL Abs Immat Gran (auto) 0.10 (0.00-0.30) K/uL Imm/Tot Granulo (auto) 9.1 % Diff Slide Review Acceptable Review (Acceptable) Sodium 138 (135-149) mmol/L Potassium 3.9 (3.6-5.1) mmol/L Chloride 103 (96-114) mmol/L Carbon Dioxide 28 (20-32) mmol/L Anion Gap 7 (7-15) mEq/L BUN 19 (7-30) mg/dL Creatinine 1.4 (0.5-1.5) mg/dL Estimated Creat Clear 44.90 Estimated GFR 51 ml/min Glucose 118 H (60-115) mg/dL Calcium 9.0 (8.4-10.6) mg/dL Total Bilirubin 0.7 (0.1-1.5) mg/dL Direct Bilirubin 0.0 (0.0-0.5) mg/dL AST 36 H (12-35) U/L ALT 19 (4-50) U/L Alkaline Phosphatase 107 (40-150) U/L C-Reactive Protein 3.4 H (0.5-1.0) mg/dL NT-Pro-B Natriuret Pep 1870 pg/mL Total Protein 6.3 (6.0-8.3) g/dL Albumin 3.8 (3.3-5.0) g/dL SARS-CoV-2 (PCR) Negative SARS-CoV-2 (Negative) Influenza Type A (PCR) Negative PCR FLU A (Negative) Influenza Type B (PCR) Negative PCR FLU B (Negative) RSV (PCR) Negative PCR RSV (Negative) Discharge Plan Discharge Clinical Impression: Cough, Chronic leukopenia Patient Disposition: Home, Self-Care Condition: Stable Instructions: Acute Cough (ED) Additional Instructions: Antibiotic as prescribed. You can use the Robitussin with codeine particularly at night if needed for cough suppression. Follow-up with your clinic doctors as usual. For worsening symptoms, shortness of breath, fevers, or other acute changes return to the emergency department at any time. Prescriptions: New codeine-guaifenesin [Guaifenesin AC] 10-100 mg/5 mL liquid 5 ml PO Q6H PRNQty: 120 0RF No Action acetaminophen 650 mg tablet extended release 1,300 mg PO BID nitroglycerin 0.4 mg tablet, sublingual 0.4 mg sublingual Q5M PRN Patient Comments: Place 1 tablet (0.4 mg total) under the tongue every 5 (five) minutes as needed for chest pain. May repeat every 5 minutes for up to 3 doses losartan 100 mg tablet 100 mg PO DAILY Qty: 90 3RF (DME) Dexcom G7 Tool Grinder Operator External Misc See Rx Instructions .Route Qty: 1 0RF Rx Instructions: As directed (DME) Dexcom G7 Sensor Device See Rx Instructions .Route Qty: 3 12RF Rx Instructions: As directed Vitron-C 65 mg iron- 125 mg tablet,delayed release (DR/EC) 1 tab PO BID Qty: 60 5RF multivitamin [Daily Multi-Vitamin] Tablet 1 tab PO DAILY diclofenac sodium [Voltaren Arthritis Pain] 1 % gel 2 g topical QID PRN acyclovir 400 mg tablet 400 mg PO BID carvedilol 3.125 mg tablet 9.375 mg PO BID Qty: 540 3RF Rx Instructions: must administer with a meal/food pantoprazole 40 mg tablet,delayed release (DR/EC) 40 mg PO BID insulin glargine 100 unit/mL (3 mL) insulin pen 30 unit subcut HS manganese 15 mg capsule 15 mg PO DAILY escitalopram oxalate [Lexapro] 10 mg tablet 10 mg PO DAILY amoxicillin-pot clavulanate [Augmentin XR] 1,000-62.5 mg tablet extended release 12 hr 1 tab PO BID Qty: 10 0RF aspirin 81 mg tablet,chewable 81 mg PO DAILY ketoconazole 2 % cream 1 applic topical DAILY PRN amoxicillin 500 mg capsule See Rx Instructions .ROUTE .COMPLEX Qty: 4 3RF Dose Instruction: Take 4 capsules (2000mg) by mouth 1 hour prior to dental appointment. Rx Instructions: Take 4 capsules (2000mg) by mouth 1 hour prior to dental appointment. torsemide 20 mg tablet 20 mg PO DAILY Follow Up/Referrals: Mathew Simpson MD [Primary Care Provider] - Stand Alone Forms: [facility] Info Instructions
== END 2023-04-26 23:40 | disposition home or self-care (01) ==
PROVIDERS: Emergency Provider Emergency Medicine; PCP Family Medicine
DX: R05.9 Cough, unspecified (principal); D72.819 Decreased white blood cell count, unspecified
CPT/HCPCS: 36415; 71046; 80048; 80076; 83880; 85025; 86140; 87631; 99284

== ENCOUNTER 2023-05-22 13:25 | Outpatient (CLI) | payer MEDICARE, OTHER, SELFPAY | END 2023-05-22 13:26 | disposition home or self-care (01) | LOC: LKVREF 13:26 | PROVIDERS: PCP Family Medicine; Visit Provider Family Medicine | DX: D72.819 Decreased white blood cell count, unspecified (principal) | CPT/HCPCS: 86140 ==

== ENCOUNTER 2023-05-25 11:01 | Inpatient (IN) | payer MEDICARE, OTHER, SELFPAY ==
[2023-05-25 11:12] VITALS: BP 148/72; PULSE 84; RESP 18; TEMP 37.3; O2SAT 95; BMI 27.5
--- NOTE | 2023-05-25 12:14 | CRLHL7_ITS ---
For Patients: As a result of the Century Cures Act, medical imaging exams and procedure reports are released immediately into your electronic medical record. You may view this report before your referring provider. If you have questions, please contact your health care provider. INDICATION: COUGH HX LYMPHOMA TECHNIQUE: CT chest without contrast. COMPARISON: CT April 2023. FINDINGS: Lungs and Airways: Persistent left basilar atelectasis. New subtle centrilobular ground-glass nodular opacities in the right upper lobe, axial image 30. Retained tracheal secretions. Heart and Mediastinum: The visualized portions of the thyroid are normal. No axillary or supraclavicular lymphadenopathy. No mediastinal, hilar or retrocrural lymphadenopathy. Normal heart size. Normal caliber aorta. Atherosclerotic calcifications of the aorta and its branches. Coronary artery calcifications. Mitral annular calcifications. Trace pericardial fluid. Pleura: Stable moderate left pleural effusion. Abdomen: Cholelithiasis. Incompletely visualized stranding abutting the spleen. Bones and soft tissues: DISH. IMPRESSION: 1. Persistent left basilar atelectasis secondary to moderate left pleural effusion. 2. New right upper lobe clustered small centrilobular nodular ground-glass opacities likely reflecting cellular bronchiolitis of infectious/aspiratory etiology. 3. Incompletely visualized stranding abutting the spleen extending off the inferior field of view. Recommend correlation with dedicated localized physical exam to assess for clinical symptoms at this site. Additionally, consider optional dedicated CT abdomen and pelvis if clinically warranted. Please note that all CT scans at this facility use dose modulation, iterative reconstruction, and/or weight-based dosing when appropriate to reduce radiation dose to as low as reasonably achievable. Dictated by Ernst Perez MD @ 05/25/2023 1:49:22 PM (Electronically Signed)
--- NOTE | 2023-05-25 13:17 | ED_ITS ---
HPI - General Adult General Date Seen: 05/25/23 Chief complaint: Fever Stated complaint: flu symptoms Time Seen by Provider: 05/25/23 11:51 Source: patient Mode of arrival: wheelchair Limitations: no limitations History of Present Illness HPI narrative: Patient is a 77-year-old male with a history of chronic leukopenia, lymphoma which she finished treatment for 5 months ago, repeat pleural effusions, AFib, cardiac amyloidosis, diabetes presenting to the emergency department for fever and weakness. Patient 1st noticed he had a fever last night of 101.6. He went to bed and woke up today and a fever of 102.6. He is not taking med. He does not have a fever here in triage. He is also having increased weakness that started this morning. He states he is having difficult to get out of bed and had to use the wheelchair to get to emergency department room. He is usually up and walking around without issues. He is also having a cough that been going on for over months now. He has seen his primary care provider for a few times and was prescribed multiple different medications without improvement. In the same symptoms 1 month ago and was admitted to the hospital discharged home after a few days. He states his symptoms feel exactly the same. The cough has not changed in that time frame. Denies chest pain, shortness of breath, lightheadedness, dizziness, abdominal pain, diarrhea, constipation. Related Data Home Medications Medication Instructions Recorded Confirmed acetaminophen 650 mg 1,300 mg PO BID 01/09/22 05/22/23 tablet,extended release diclofenac sodium 1 % topical gel 2 g topical QID PRN 03/13/22 05/22/23 (Voltaren Arthritis Pain) multivitamin (Daily Multi-Vitamin 1 tab PO DAILY 03/13/22 05/22/23 tablet) aspirin 81 mg chewable tablet 81 mg PO DAILY 07/07/22 05/22/23 ketoconazole 2 % topical cream 1 applic topical DAILY PRN 07/07/22 05/22/23 nitroglycerin 0.4 mg sublingual 0.4 mg sublingual Q5M PRN 07/11/22 05/22/23 tablet acyclovir 400 mg tablet 400 mg PO BID 08/15/22 05/22/23 torsemide 20 mg tablet 20 mg PO DAILY 03/02/23 05/22/23 escitalopram oxalate 10 mg tablet 10 mg PO DAILY 04/17/23 05/22/23 (Lexapro) insulin glargine 100 unit/mL (3 30 unit subcut HS 04/17/23 05/22/23 mL) subcutaneous pen manganese 15 mg capsule 15 mg PO DAILY 04/17/23 05/22/23 pantoprazole 40 mg tablet,delayed 40 mg PO BID 04/17/23 05/22/23 release Previous Rx's Medication Instructions Recorded amoxicillin 500 mg capsule See Rx Instructions .Route 07/31/22 .COMPLEX #4 caps carvedilol 3.125 mg tablet 9.375 mg (3 x 3.125 mg) PO BID 01/16/23 #540 tabs losartan 100 mg tablet 100 mg PO DAILY #90 tabs 03/30/23 blood-glucose meter,continuous #1 ea 04/20/23 (Dexcom G7 [employer]) blood-glucose sensor (Dexcom G7 #3 ea 04/20/23 Sensor device) iron,carbonyl 65 mg-vitamin C 125 1 tab PO BID #60 tabs 04/21/23 mg tablet,delayed release (Vitron-C) ipratropium 20 mcg-albuterol 100 1 puff inhalation QID #4 grams 05/10/23 mcg/actuation mist for inhalation (Combivent Respimat) beclomethasone dipropionate 80 1 inh inhalation BID #10.6 grams 05/22/23 mcg/actuation HFA breath activated aerosol (Qvar RediHaler) codeine 10 mg-guaifenesin 100 mg/5 5 ml PO Q4-6H PRN cough #120 mL 05/22/23 mL oral liquid ipratropium 0.5 mg-albuterol 3 mg 3 ml inhalation QID PRN shortness 05/22/23 (2.5 mg base)/3 mL nebulization of breath or wheezing #180 mL soln Allergies Allergy/AdvReac Type Severity Reaction Status Date / Time lovastatin Allergy Severe Throat and Verified 05/22/23 10:19 chest tightness niacin Allergy Severe Throat and Verified 05/22/23 10:19 chest tightness duloxetine Allergy Intermediate throat and Verified 05/22/23 10:19 chest tightness sertraline Allergy Intermediate Dizzy, Verified 05/22/23 10:19 headaches and not right in the head methyldopa Allergy Mild Chills, Verified 05/22/23 10:19 fever [id number] Reductase Allergy Verified 05/22/23 10:19 Inhibitor COVID-19 (Adenovirus) Vaccine Allergy Severe Myocarditis Uncoded 05/22/23 10:19 paper tape AdvReac Severe Takes skin Uncoded 05/22/23 10:19 off Review of Systems Status of ROS: Reports: 10 or more systems reviewed and unremarkable except as noted in History and below [facility] Medical History Leukopenia ?D72.819 - Decreased white blood cell count, unspecified (ICD-10) CPAP (continuous positive airway pressure) dependence ?Z99.89 - Dependence on other enabling machines and devices (ICD-10) Insulin dependent diabetes mellitus with complications Anemia ?D64.9 - Anemia, unspecified (ICD-10) Urinary incontinence ?R32 - Unspecified urinary incontinence (ICD-10) Febrile neutropenia ?D70.9 - Neutropenia, unspecified (ICD-10) ?R50.81 - Fever presenting with conditions classified elsewhere (ICD-10) Cardiac dysrhythmia, unspecified ?I49.9 - Cardiac arrhythmia, unspecified (ICD-10) GI (gastrointestinal bleed) ?K92.2 - Gastrointestinal hemorrhage, unspecified (ICD-10) Depression ?F32.A - Depression, unspecified (ICD-10) BPH (benign prostatic hyperplasia) ?N40.0 - Benign prostatic hyperplasia without lower urinary tract symptoms (ICD-10) Cardiac amyloidosis ?E85.4 - Organ-limited amyloidosis (ICD-10) ?I43 - Cardiomyopathy in diseases classified elsewhere (ICD-10) Depression ?F32.A - Depression, unspecified (ICD-10) 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 ?I24.0 - Acute coronary thrombosis not resulting in myocardial infarction (ICD-10) Pleural effusion ?J90 - Pleural effusion, not elsewhere classified (ICD-10) Pleural effusion ?J90 - Pleural effusion, not elsewhere classified (ICD-10) Lymphoma ?C85.90 - Non-Hodgkin lymphoma, unspecified, unspecified site (ICD-10) Narcolepsy ?G47.419 - Narcolepsy without cataplexy (ICD-10) Weight loss ?R63.4 - Abnormal weight loss (ICD-10) Thrombocytopenia (~02/16/16) ?D69.6 - Thrombocytopenia, unspecified (ICD-10) Serum creatinine raised ?R79.89 - Other specified abnormal findings of blood chemistry (ICD-10) Osteoarthritis of multiple joints ?M15.9 - Polyosteoarthritis, unspecified (ICD-10) Fever ?R50.9 - Fever, unspecified (ICD-10) Fatigue ?R53.83 - Other fatigue (ICD-10) Edema of lower extremity ?R60.0 - Localized edema (ICD-10) Abdominal pain ?R10.9 - Unspecified abdominal pain (ICD-10) Surgical History History of percutaneous coronary intervention ?Z98.61 - Coronary angioplasty status (ICD-10) History of lumbar fusion (09/09/12) ?Z98.1 - Arthrodesis status (ICD-10) History of discectomy (~08/2016) ?Z98.890 - Other specified postprocedural states (ICD-10) Status post total hip replacement, 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) ?Z96.642 - Presence of left artificial hip joint (ICD-10) Status post tonsillectomy and adenoidectomy ?Z90.89 - Acquired absence of other organs (ICD-10) History of umbilical hernia repair ?Z98.890 - Other specified postprocedural states (ICD-10) ?Z87.19 - Personal history of other diseases of the digestive system (ICD-10) History of nasal septoplasty ?Z98.890 - Other specified postprocedural states (ICD-10) History of carpal tunnel surgery ?Z98.890 - Other specified postprocedural states (ICD-10) Family History Father Colon cancer Lung cancer Mother Diabetes FH: thyroid cancer Kidney disease High blood pressure Social History Narrative: He lives with his . He gets his specialty medical care at [facility]. He does not smoke. He does not drink alcohol. What is your current living situation?: I presently have a place to live Problems where you live: no known problems Problems where you live details: na In the past 12 months, utilities in danger of being shut off: no In past 12 months, lack of transportation kept you from medical appts, meetings, work, or getting things needed for daily living: no In the past 12 mos, have been you worried that your food would run out before you had money to buy more?: never true In the past 12 mos, the food you bought just didn't last and you didn't have money to buy more?: never true Highest level of school completed/degree received: Bachelor's degree Smoking Status: Never smoker Do you use any of these nicotine containing products: None Second hand tobacco smoke exposure: No How often do you have a drink containing alcohol: never How often do you have six or more drinks on one occasion: Never AUDIT-C Alcohol total score: 0 Non-prescribed substance use: denies use Caffeine: Yes How often does anyone, including family, friends and others, physically hurt you : never How often does anyone, including family, friends and others, insult or talk down to you: never How often does anyone, including family, friends and others, threaten you with harm: never How often does anyone, including family, friends and others, scream or curse at you: never Little interest or pleasure in doing things: nearly every day Feeling down, depressed, or hopeless: nearly every day service: No Exam Narrative: Exam Narrative: Const: Well-nourished, Well-developed, in mild distress Eyes: PERRL, no conjunctival injection, and symmetrical lids HENT: Atraumatic external nose and ears. Moist mucous membranes. Neck: Symmetric, trachea midline, No thyromegaly. CVS: RRR, No murmurs or gallops. Peripheral pulses 2+ and equal in all extremities RESP: Unlabored respiratory effort. Clear to auscultation bilaterally. GI: Nontender/Nondistended, No rebound or guarding. MSK:Extremities w/o deformity, Normal Active ROM Skin: Warm, Dry. No rashes or lesions. Neuro: Normal Muscle tone, No focal neurological deficits. Psych: Awake, Alert, & Oriented x3. Appropriate mood and affect. Const: Vital Signs, click to edit/add: Vital Signs - 24 hr 05/25/23 11:12 Temperature 99.2 F Pulse Rate [Pulse Oximeter] 84 Respiratory Rate 18 Blood Pressure [Ri ght Upper Arm] 148/72 H Pulse Oximetry 95 Oxygen Delivery Me thod Room Air Course Vital Signs Vital signs: Initial Vital Signs Temperature 99.2 F 05/25/23 11:12 Temperature Source Temporal Artery Scan 05/25/23 11:12 Pulse Rate 84 05/25/23 11:12 Respiratory Rate 18 05/25/23 11:12 Blood Pressure 148/72 H 05/25/23 11:12 Blood Pressure Mean 97 05/25/23 11:12 Blood Pressure Position Supine 05/25/23 11:12 Pulse Oximetry 95 05/25/23 11:12 Oxygen Delivery Method Room Air 05/25/23 11:12 Vital Signs Temperature 99.2 F 05/25/23 11:12 Pulse Rate 84 05/25/23 11:12 Respiratory Rate 18 05/25/23 11:12 Blood Pressure 148/72 H 05/25/23 11:12 Pulse Oximetry 95 05/25/23 11:12 Oxygen Delivery Method Room Air 05/25/23 11:12 Temperature 99.2 F 05/25/23 11:12 Pulse Rate 84 05/25/23 11:12 Respiratory Rate 18 05/25/23 11:12 Blood Pressure 148/72 H 05/25/23 11:12 Pulse Oximetry 95 05/25/23 11:12 Oxygen Delivery Method Room Air 05/25/23 11:12 Medical Decision Making MDM Narrative Medical decision making narrative: Patient is 77-year-old male presenting to the emergency department for weakness and fever. Symptoms started last night and persisted today. Did not have a fever in the emergency department. Does have chronically low white blood cell count increasing his fever at home with beats SIRS criteria so septic workup was ordered. Loss ordered a chest CT to better evaluate his chest since he is having a fever and this chronic cough. White blood cell count came back at 2.43 which is higher than her was a few days ago. This could possibly signs of infection associated with his fever seems likely. He does not have a neutropenic fever at this time. Lymphocytes are low. CMP showed no concerning abnormalities. His troponin did come back at 0.13. EKG did not show signs of a STEMI. Vital signs have otherwise been stable emergency department. No UTI. COVID/flu/RSV is negative. Chest CT showed possible right upper lobe pneumonia. I spoke to the admitting hospitalist they accepted him for admission Lab Data Labs: Lab Results 05/25/23 05/25/23 05/25/23 Range/Units 12:15 12:57 13:09 WBC 2.43 L (4.50-11.00) K/uL RBC 4.26 L (4.30-5.90) m/uL Hgb 10.2 L (13.5-17.5) gm/dL Hct 32.4 L (37.0-53.0) % MCV 76 L (80-100) fL MCH 24 L (26-34) pg MCHC 32 (32-36) gm/dL RDW Coeff of Shukri 20.1 H (11.5-15.5) % Plt Count 105 L (140-440) K/uL Neut % (Auto) 60.6 (42.0-72.0) % Lymph % (Auto) 5.3 L (20-44) % [place] % (Auto) 18.1 H (0.0-11.0) % Eos % (Auto) 7.0 (0.0-7.0) % Baso % (Auto) 0.8 (0.0-3.0) % Neut # (Auto) 1.50 L (1.7-7.0) K/uL Lymph # (Auto) 0.10 L (0.90-2.90) K/uL [place] # (Auto) 0.40 (0.00-0.90) K/UL Eos # (Auto) 0.20 (0.00-0.50) K/uL Baso # (Auto) 0.00 (0.00-0.30) K/uL Abs Immat Gran (auto) 0.20 (0.00-0.30) K/uL Imm/Tot Granulo (auto) 8.2 % Diff Slide Review (Acceptable) Sodium 135 (135-149) mmol/L Potassium 4.3 (3.6-5.1) mmol/L Chloride 99 (96-114) mmol/L Carbon Dioxide 27 (20-32) mmol/L Anion Gap 9 (7-15) mEq/L BUN 16 (7-30) mg/dL Creatinine 1.4 (0.5-1.5) mg/dL Estimated Creat Clear 44.90 Estimated GFR 51 ml/min Glucose 204 H (60-115) mg/dL Lactate 1.4 (0.5-1.9) mmol/L Calcium 9.2 (8.4-10.6) mg/dL Total Bilirubin 1.1 (0.1-1.5) mg/dL AST 32 (12-35) U/L ALT 21 (4-50) U/L Alkaline Phosphatase 108 (40-150) U/L Troponin I 0.13 H* (0.01-0.04) ng/mL Total Protein 6.4 (6.0-8.3) g/dL Albumin 4.1 (3.3-5.0) g/dL Urine Color Yellow (Yellow) Urine Appearance Clear (Clear) Urine pH 8.5 (5.0-8.5) Ur Specific [place] 1.015 (1.000-1.030) Urine Protein 2+ A (Negative) Urine Glucose (UA) Negative (Negative) Urine Ketones Negative (Negative) Urine Blood Negative (Negative) Urine Nitrite Negative (Negative) Urine Bilirubin Negative (Negative) Urine Urobilinogen 0.2 (0.2-1.0) Ur Leukocyte Esterase Negative (Negative) Urine RBC 2-5 A (0-2) Urine WBC 2-5 (0-5) Urine WBC Clumps None (None) Ur Squamous Epith Cells None (None-Few) Urine Bacteria None (None) SARS-CoV-2 (PCR) Negative SARS-CoV-2 (Negative) Influenza Type A (PCR) Negative PCR FLU A (Negative) Influenza Type B (PCR) Negative PCR FLU B (Negative) Imaging Data CT scan - chest: Radiologist's impression: 1. Persistent left basilar atelectasis secondary to moderate left pleural effusion. 2. New right upper lobe clustered small centrilobular nodular ground-glass opacities likely reflecting cellular bronchiolitis of infectious/aspiratory etiology. 3. Incompletely visualized stranding abutting the spleen extending off the inferior field of view. Recommend correlation with dedicated localized physical exam to assess for clinical symptoms at this site. Additionally, consider optional dedicated CT abdomen and pelvis if clinically warranted. Please note that all CT scans at this facility use dose modulation, iterative reconstruction, and/or weight-based dosing when appropriate to reduce radiation dose to as low as reasonably achievable. Dictated by Ernst Perez MD @ 05/25/2023 1:49:22 PM ECG Data Attestation: I personally reviewed and interpreted this ECG as follows: Prior ECG tracings: available for review Interpretation: The AFib with a rate of 79 beats per minute, bifascicular block, left axis, no ST or T-wave abnormalities. Appears similar to previous EKGs on file Discharge Plan Discharge Clinical Impression: Pneumonia Patient Disposition: Admitted As Observation Discharge Location: [facility] Condition: Stable Prescriptions: No Action acetaminophen 650 mg tablet extended release 1,300 mg PO BID nitroglycerin 0.4 mg tablet, sublingual 0.4 mg sublingual Q5M PRN Patient Comments: Place 1 tablet (0.4 mg total) under the tongue every 5 (five) minutes as needed for chest pain. May repeat every 5 minutes for up to 3 doses losartan 100 mg tablet 100 mg PO DAILY Qty: 90 3RF (DME) Dexcom G7 [employer] Misc See Rx Instructions .Route Qty: 1 0RF Rx Instructions: As directed (DME) Dexcom G7 Sensor Device See Rx Instructions .Route Qty: 3 12RF Rx Instructions: As directed Vitron-C 65 mg iron- 125 mg tablet,delayed release (DR/EC) 1 tab PO BID Qty: 60 5RF ipratropium-albuterol 0.5 mg-3 mg(2.5 mg base)/3 mL solution for nebulization 3 ml inhalation QID PRN (Reason: shortness of breath or wheezing) Qty: 180 1RF codeine-guaifenesin 10-100 mg/5 mL liquid 5 ml PO Q4-6H PRN (Reason: cough) Qty: 120 2RF Qvar RediHaler 80 mcg/actuation HFA aerosol breath activated 1 inh inhalation BID Qty: 10.6 1RF multivitamin [Daily Multi-Vitamin] Tablet 1 tab PO DAILY diclofenac sodium [Voltaren Arthritis Pain] 1 % gel 2 g topical QID PRN acyclovir 400 mg tablet 400 mg PO BID carvedilol 3.125 mg tablet 9.375 mg PO BID Qty: 540 3RF Rx Instructions: must administer with a meal/food Combivent Respimat 20-100 mcg/actuation mist 1 puff inhalation QID Qty: 4 1RF Rx Instructions: space evenly during waking hours pantoprazole 40 mg tablet,delayed release (DR/EC) 40 mg PO BID insulin glargine 100 unit/mL (3 mL) insulin pen 30 unit subcut HS manganese 15 mg capsule 15 mg PO DAILY escitalopram oxalate [Lexapro] 10 mg tablet 10 mg PO DAILY aspirin 81 mg tablet,chewable 81 mg PO DAILY ketoconazole 2 % cream 1 applic topical DAILY PRN amoxicillin 500 mg capsule See Rx Instructions .ROUTE .COMPLEX Qty: 4 3RF Dose Instruction: Take 4 capsules (2000mg) by mouth 1 hour prior to dental appointment. Rx Instructions: Take 4 capsules (2000mg) by mouth 1 hour prior to dental appointment. torsemide 20 mg tablet 20 mg PO DAILY Follow Up/Referrals: Mathwe Simpson MD [Primary Care Provider] -
[2023-05-25 13:21] LABS: Lactate* 1.4 mmol/L (0.5-1.9)
[2023-05-25 13:28] LABS: Basophils Percent Auto 0.8 % (0.0-3.0); Hematocrit 32.4 % (37.0-53.0); Hemoglobin* 10.2 gm/dL (13.5-17.5); Immature Granulocytes Pct Auto 8.2 %; Lymphocytes Percent Auto 5.3 % (20-44); Mean Corpuscular HGB Conc 32 gm/dL (32-36); Mean Corpuscular Hemoglobin 24 pg (26-34); Mean Corpuscular Volume 76 fL (80-100); Monocytes Percent Auto 18.1 % (0.0-11.0); Neutrophils Percent Auto 60.6 % (42.0-72.0); Platelet Count* 105 K/uL (140-440); RDW Coefficient of Variation % 20.1 % (11.5-15.5); Red Blood Count 4.26 m/uL (4.30-5.90); White Blood Count* 2.43 K/uL (4.50-11.00)
[2023-05-25 13:32] LABS: Slide Review Reflex Yes
[2023-05-25 13:37] LABS: Albumin* 4.1 g/dL (3.3-5.0); Chloride* 99 mmol/L (96-114); Potassium* 4.3 mmol/L (3.6-5.1); Sodium* 135 mmol/L (135-149)
[2023-05-25 13:39] LABS: Creatinine* 1.4 mg/dL (0.5-1.5); Estimated Glomerular Filt Rate 51 ml/min
[2023-05-25 13:40] LABS: PCR FLU A Negative PCR FLU A (Negative); PCR FLU B Negative PCR FLU B (Negative)
[2023-05-25 13:40] LABS: Alanine Aminotransferase* 21 U/L (4-50); Alkaline Phosphatase* 108 U/L (40-150); Anion Gap 9 mEq/L (7-15); Aspartate Amino Transferase* 32 U/L (12-35); Bilirubin Total* 1.1 mg/dL (0.1-1.5); Blood Urea Nitrogen* 16 mg/dL (7-30); Calcium* 9.2 mg/dL (8.4-10.6); Carbon Dioxide* 27 mmol/L (20-32); Glucose* 204 mg/dL (60-115); Total Protein* 6.4 g/dL (6.0-8.3)
[2023-05-25 13:42] LABS: SARS PCR* Negative SARS-CoV-2 (Negative)
[2023-05-25 13:58] LABS: Troponin I* 0.13 ng/mL (0.01-0.04)
[2023-05-25 14:14] LABS: Appearance Urine Clear (Clear); Bilirubin Urine Negative (Negative); Blood Urine Negative (Negative); Color Urine Yellow (Yellow); Glucose Urine Negative (Negative); Ketones Urine Negative (Negative); Leukocyte Esterase Urine Negative (Negative); Nitrite Urine Negative (Negative); Protein Urine 2+ (Negative); Specific Gravity Urine 1.015 (1.000-1.030); Urobilinogen Urine 0.2 (0.2-1.0); pH Urine 8.5 (5.0-8.5)
[2023-05-25 15:54] VITALS: BP 140/69; PULSE 74; RESP 18; RESP 20; TEMP 37.3; O2SAT 97; BMI 28.8
[2023-05-25 16:32] LABS: NT Pro B Type NatriureticPept* 1700 pg/mL
--- NOTE | 2023-05-25 17:28 | PM.IMHP1 ---
Hospitalist- H&P: HPI History of Present Illness Date Seen: 05/25/23 Chief complaint: flu symptoms Narrative: Noel Arriaga is a 77 year old male with follicular lymphoma, pancytopenia, cardiac amyloidosis admitted through the emergency department with cough and fever and weakness. Patient reports that he has been coughing for weeks. He reports this is the same way he felt on April 16 when he was admitted with weakness and difficulty breathing. At that time he is also noted to have a fever. He is treated for febrile neutropenia. A CT scan showed possible atelectasis or infection in the left lower lobe and a pleural effusion. He had a thoracentesis for the pleural effusion. This appeared transudative. Cultures were negative. This was thought to be a recurrent problem related to cardiac amyloid. He was [facility] during the [facility] but now is stopped going there for thoracentesis routinely. He would get quite dyspneic before he required a thoracentesis. Subsequently has been treated with torsemide which has been affective for volume control. Since then however he continues to have significant cough and dyspnea. In the last few days he has again had problems with fevers and in the last day or 2 he has gotten quite weak again. He has been treated at [facility] from July to October of 2022 for his follicular lymphoma. Due to his chronic thrombocytopenia neutropenia they stopped treatment in October. Unfortunately his neutropenia and thrombocytopenia have not recovered since then. He has been on antibiotics at his last hospital stay and again had a course of doxycycline 2 weeks ago. Neither were clearly beneficial for his cough. He was started on DuoNebs last week and also not clearly beneficial for his cough. With his lymphoma and pancytopenia he has been on acyclovir twice daily and probably nebulized pentamidine monthly he reports a monthly aerosol treatment from [facility]. He is allergic to Bactrim. Review of Systems Narrative: Patient reports profound fatigue and weakness. He poorly tolerates any activity due to weakness and dyspnea. He has not been eating well in the last couple days when he has had more fevers. [facility] Medical History (Updated 05/25/23 @ 19:13 by Liam Davis MD) Pancytopenia ?D61.818 - Other pancytopenia (ICD-10) Leukopenia ?D72.819 - Decreased white blood cell count, unspecified (ICD-10) CPAP (continuous positive airway pressure) dependence ?Z99.89 - Dependence on other enabling machines and devices (ICD-10) Insulin dependent diabetes mellitus with complications Anemia ?D64.9 - Anemia, unspecified (ICD-10) Urinary incontinence ?R32 - Unspecified urinary incontinence (ICD-10) Febrile neutropenia ?D70.9 - Neutropenia, unspecified (ICD-10) ?R50.81 - Fever presenting with conditions classified elsewhere (ICD-10) Cardiac dysrhythmia, unspecified ?I49.9 - Cardiac arrhythmia, unspecified (ICD-10) GI (gastrointestinal bleed) ?K92.2 - Gastrointestinal hemorrhage, unspecified (ICD-10) Depression ?F32.A - Depression, unspecified (ICD-10) BPH (benign prostatic hyperplasia) ?N40.0 - Benign prostatic hyperplasia without lower urinary tract symptoms (ICD-10) Cardiac amyloidosis ?E85.4 - Organ-limited amyloidosis (ICD-10) ?I43 - Cardiomyopathy in diseases classified elsewhere (ICD-10) Depression ?F32.A - Depression, unspecified (ICD-10) 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 ?I24.0 - Acute coronary thrombosis not resulting in myocardial infarction (ICD-10) Pleural effusion ?J90 - Pleural effusion, not elsewhere classified (ICD-10) Pleural effusion ?J90 - Pleural effusion, not elsewhere classified (ICD-10) Lymphoma ?C85.90 - Non-Hodgkin lymphoma, unspecified, unspecified site (ICD-10) Narcolepsy ?G47.419 - Narcolepsy without cataplexy (ICD-10) Weight loss ?R63.4 - Abnormal weight loss (ICD-10) Thrombocytopenia (~08/17/15) ?D69.6 - Thrombocytopenia, unspecified (ICD-10) Serum creatinine raised ?R79.89 - Other specified abnormal findings of blood chemistry (ICD-10) Osteoarthritis of multiple joints ?M15.9 - Polyosteoarthritis, unspecified (ICD-10) Fever ?R50.9 - Fever, unspecified (ICD-10) Fatigue ?R53.83 - Other fatigue (ICD-10) Edema of lower extremity ?R60.0 - Localized edema (ICD-10) Abdominal pain ?R10.9 - Unspecified abdominal pain (ICD-10) Surgical History History of percutaneous coronary intervention ?Z98.61 - Coronary angioplasty status (ICD-10) History of lumbar fusion (09/09/12) ?Z98.1 - Arthrodesis status (ICD-10) History of discectomy (~08/2016) ?Z98.890 - Other specified postprocedural states (ICD-10) Status post total hip replacement, 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) ?Z96.642 - Presence of left artificial hip joint (ICD-10) Status post tonsillectomy and adenoidectomy ?Z90.89 - Acquired absence of other organs (ICD-10) History of umbilical hernia repair ?Z98.890 - Other specified postprocedural states (ICD-10) ?Z87.19 - Personal history of other diseases of the digestive system (ICD-10) History of nasal septoplasty ?Z98.890 - Other specified postprocedural states (ICD-10) History of carpal tunnel surgery ?Z98.890 - Other specified postprocedural states (ICD-10) Family History Father Colon cancer Lung cancer Mother Diabetes FH: thyroid cancer Kidney disease High blood pressure Social History (Updated 05/25/23 @ 18:59 by Liam Davis MD) Narrative: He lives with his . He gets his specialty medical care at [facility]. He does not smoke. He does not drink alcohol. Code status is full. What is your current living situation?: I presently have a place to live Problems where you live: no known problems Problems where you live details: [facility] In the past 12 months, utilities in danger of being shut off: no In past 12 months, lack of transportation kept you from medical appts, meetings, work, or getting things needed for daily living: no In the past 12 mos, have been you worried that your food would run out before you had money to buy more?: never true In the past 12 mos, the food you bought just didn't last and you didn't have money to buy more?: never true Highest level of school completed/degree received: Bachelor's degree Smoking Status: Never smoker Do you use any of these nicotine containing products: None Second hand tobacco smoke exposure: No How often do you have a drink containing alcohol: never How often do you have six or more drinks on one occasion: Never AUDIT-C Alcohol total score: 0 Non-prescribed substance use: denies use Caffeine: Yes (1 cup coffee daily) How often does anyone, including family, friends and others, physically hurt you: never How often does anyone, including family, friends and others, insult or talk down to you: never How often does anyone, including family, friends and others, threaten you with harm: never How often does anyone, including family, friends and others, scream or curse at you: never Little interest or pleasure in doing things: nearly every day Feeling down, depressed, or hopeless: nearly every day service: No Meds Home Medications and Allergies Home Medications Medication Instructions Recorded Confirmed Type acetaminophen 650 mg 1,300 mg PO BID 01/09/22 05/22/23 History tablet,extended release diclofenac sodium 1 % topical gel 2 g topical QID PRN 03/13/22 05/22/23 History (Voltaren Arthritis Pain) multivitamin (Daily Multi-Vitamin 1 tab PO DAILY 03/13/22 05/22/23 History tablet) aspirin 81 mg chewable tablet 81 mg PO DAILY 07/07/22 05/22/23 History ketoconazole 2 % topical cream 1 applic topical DAILY PRN 07/07/22 05/22/23 History nitroglycerin 0.4 mg sublingual 0.4 mg sublingual Q5M PRN 07/11/22 05/22/23 History tablet acyclovir 400 mg tablet 400 mg PO BID 08/15/22 05/22/23 History torsemide 20 mg tablet 20 mg PO DAILY 03/02/23 05/22/23 History escitalopram oxalate 10 mg tablet 10 mg PO DAILY 04/17/23 05/22/23 History (Lexapro) insulin glargine 100 unit/mL (3 30 unit subcut HS 04/17/23 05/22/23 History mL) subcutaneous pen manganese 15 mg capsule 15 mg PO DAILY 04/17/23 05/22/23 History pantoprazole 40 mg tablet,delayed 40 mg PO BID 04/17/23 05/22/23 History release Allergies Allergy/AdvReac Type Severity Reaction Status Date / Time lovastatin Allergy Severe Throat and Verified 05/22/23 10:19 chest tightness niacin Allergy Severe Throat and Verified 05/22/23 10:19 chest tightness duloxetine Allergy Intermediate throat and Verified 05/22/23 10:19 chest tightness sertraline Allergy Intermediate Dizzy, Verified 05/22/23 10:19 headaches and not right in the head methyldopa Allergy Mild Chills, Verified 05/22/23 10:19 fever Jmxjkby-JKS-BhP Reductase Allergy Verified 05/22/23 10:19 Inhibitor COVID-19 (Adenovirus) Vaccine Allergy Severe Myocarditis Uncoded 05/22/23 10:19 paper tape AdvReac Severe Takes skin Uncoded 05/22/23 10:19 off Exam Narrative: Exam Narrative: He is alert and in no distress. He is tired appearing. Eyes normal. Oropharynx normal. Neck is supple without mass or adenopathy. Respirations with scattered rhonchi and a few bibasilar rales. No consolidation. No wheezing. Cardiovascular: S1, S2, regular rate and rhythm. No murmur gallop or rub. Abdomen: Bowel sounds active. Abdomen is soft without tenderness or mass. Extremities with intact pulses. He has 1+ edema in his ankles. He moves all 4 extremities well. Const: Vital Signs, click to edit/add: Vital Signs - 24 hr 05/25/23 11:12 05/25/23 15:54 Temperature 99.2 F 99.2 F Pulse Rate [Pulse Oximeter] 84 74 Respiratory Rate 18 18 Blood Pressure [Ri ght Arm] 140/69 H Blood Pressure [Ri ght Upper Arm] 148/72 H Pulse Oximetry 95 97 Oxygen Delivery Me thod Room Air Room Air Documenting provider has reviewed patient's vital signs: yes Hospitalist - H&P: Result Labs Labs: Short CBC 05/25/23 Range/Units 13:09 WBC 2.43 L (4.50-11.00) K/uL Hgb 10.2 L (13.5-17.5) gm/dL Hct 32.4 L (37.0-53.0) % Plt Count 105 L (140-440) K/uL BMP 05/25/23 13:09 Sodium 135 Potassium 4.3 Chloride 99 Carbon Dioxide 27 BUN 16 Creatinine 1.4 Glucose 204 H Calcium 9.2 Cardiac Enzymes 05/25/23 Range/Units 13:09 Troponin I 0.13 H* (0.01-0.04) ng/mL Liver Function 05/25/23 Range/Units 13:09 Total Bilirubin 1.1 (0.1-1.5) mg/dL AST 32 (12-35) U/L ALT 21 (4-50) U/L Alkaline Phosphatase 108 (40-150) U/L Albumin 4.1 (3.3-5.0) g/dL Urine 05/25/23 Range/Units 12:15 Urine Color Yellow (Yellow) Urine Appearance Clear (Clear) Urine pH 8.5 (5.0-8.5) Ur Specific [place] 1.015 (1.000-1.030) Urine Protein 2+ A (Negative) Urine Glucose (UA) Negative (Negative) ECG Attestation: I personally reviewed and interpreted this ECG as follows: (Patient appears to have atrial fibrillation with a relativel normal rhythm verses normal sinus rhythm with frequent PACs. P waves are poorly seen on this electrocardiogram as well as prior electrocardiograms. 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 COMPARISON: CT April 2023. FINDINGS: Lungs and Airways: Persistent left basilar atelectasis. New subtle centrilobular ground-glass nodular opacities in the right upper lobe, axial image 30. Retained tracheal secretions. Heart and Mediastinum: The visualized portions of the thyroid are normal. No axillary or supraclavicular lymphadenopathy. No mediastinal, hilar or retrocrural lymphadenopathy. Normal heart size. Normal caliber aorta. Atherosclerotic calcifications of the aorta and its branches. Coronary artery calcifications. Mitral annular calcifications. Trace pericardial fluid. Pleura: Stable moderate left pleural effusion. Abdomen: Cholelithiasis. Incompletely visualized stranding abutting the spleen. Bones and soft tissues: DISH. IMPRESSION: 1. Persistent left basilar atelectasis secondary to moderate left pleural effusion. 2. New right upper lobe clustered small centrilobular nodular ground-glass opacities likely reflecting cellular bronchiolitis of infectious/aspiratory etiology. 3. Incompletely visualized stranding abutting the spleen extending off the inferior field of view. Recommend correlation with dedicated localized physical exam to assess for clinical symptoms at this site. Additionally, consider optional dedicated CT abdomen and pelvis if clinically warranted. Assessment and Plan Assessment and plan (1) Pneumonia: Problem comment: Cough fever and right upper lobe infiltrate ground-glass infiltrate suggest fever. In this context I am concerned about Pneumocystis jiroveci. This is despite his presumed prophylaxis with nebulized pentamidine. Sputum with PCR for Pneumocystis is obtained. Beta D glucan also obtained. Sputum culture is pending as well. Patient has allergy to Bactrim so will initiate atovaquone when it becomes available. Status: Acute (2) Insulin dependent diabetes mellitus with complications: Problem comment: Continue home management. Status: Acute (3) Pancytopenia: Problem comment: Present since chemotherapy for lymphoma early 2022. Has not recovered since discontinuing chemotherapy in October 2022 Status: Acute (4) Chronic a-fib: Problem comment: -continue carvedilol -not currently on anticoagulation. Previously on warfarin, stopped December 2022 due to GI bleed. Offered LAAO but declined -on enoxaparin during hospitalization -per [facility] visit 04/09/23, will need follow-up with PCP to determine re-initiation of anticoagulation Status: Chronic (5) Chronic kidney disease, stage 3b: Status: Chronic (6) Elevated troponin: Problem comment: Monitor and Trend this. Not currently having chest pain or acute ischemic EKG changes. 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 Also known to have underlying coronary artery disease. Status: Acute (7) Cardiac amyloidosis: Problem comment: Echocardiogram appears relatively stable Status: Acute (8) Pleural effusion: Problem comment: -history of cardiac amyloidosis. Routine therapeutic thoracentesis-scheduled for thoracentesis 04/18/2023 at [place] (being done locally on 04/18) -General Surgery following -pleural fluid cell count and differential, total protein, LDH, glucose, cholesterol, culture, Gram stain, cytology, pH from April 2023 suggest chronic pleural effusion Cultures from that time show no growth. No malignancy. Improved on chronic torsemide Status: Chronic (9) Non Hodgkin's lymphoma: Problem comment: Received 5 of 6 rounds of chemotherapy and stopped because of chronic pancytopenia Status: Chronic (10) Hypertension: Status: Chronic Plan Patient is admitted the hospital for evaluation management of pneumonia in the context of pancytopenia and high risk for opportunistic infections. Concern for Pneumocystis as well as other opportunistic infections. Continue to manage other chronic medical problems as well. Total time spent today is 90 minutes, 60 minutes in coordination of care and discussing with patient and ongoing evaluation and management of heart disease, lung disease, bone marrow disease.
[2023-05-25] MEDS: ALBUTEROL SULFATE 2.5 MG/3 ML VIAL.NEB NEB (17:47)
[2023-05-25 19:00] VITALS: BP 133/66; PULSE 78; RESP 20; TEMP 36.8; O2SAT 96
[2023-05-25] MEDS: IPRAT-ALBUT 0.5-2.5 MG/3 ML NEB 1 NEB IH (21:29)
[2023-05-25] MEDS: PIPERACILLIN/TAZOBACTAM 3.375 GM in 0.9 % SODIUM CHLORIDE Mini-bag 100 ML IVPB (21:30)
[2023-05-25] MEDS: ACYCLOVIR 200 MG CAPSULE 400 MG PO (21:33)
[2023-05-25] MEDS: ACETAMINOPHEN 650 MG TABLET ER 1300 MG PO (21:33)
[2023-05-25] MEDS: OMEPRAZOLE 20 MG CAPSULE DR 40 MG PO (21:33)
[2023-05-25] MEDS: AZITHROMYCIN 250 MG TABLET 500 MG PO (21:34)
[2023-05-25] MEDS: ENOXAPARIN 40 MG/0.4 ML INJ SUBCUT (21:34)
[2023-05-25] MEDS: carvediloL 6.25 MG TABLET 9.375 MG PO (21:34)
[2023-05-25] MEDS: SODIUM CHLORIDE 0.9 % (FLUSH) 10 ML SYRINGE 5 ML IVF (21:35)
[2023-05-25 22:25] LABS: Legionella pneumo Ag Urine L. pneumo Negative (Negative); S pneumo Ag Urine S. pneumo Negative (Negative)
--- NOTE | 2023-05-25 22:40 | PM.IMPN1 ---
Progress Note: A&P Assessment and plan (1) Pneumonia: Problem details: Cough fever and right upper lobe infiltrate ground-glass infiltrate suggest fever. In this context I am concerned about Pneumocystis jiroveci. This is despite his presumed prophylaxis with nebulized pentamidine. Sputum with PCR for Pneumocystis is obtained. Beta D glucan also obtained. Sputum culture is pending as well. Patient has allergy to Bactrim so will initiate atovaquone when it becomes available. Status: Acute (2) Insulin dependent diabetes mellitus with complications: Problem details: Continue home management. Status: Acute (3) Pancytopenia: Problem details: Present since chemotherapy for lymphoma early 2022. Has not recovered since discontinuing chemotherapy in October 2022 Status: Acute (4) Chronic a-fib: Problem details: -continue carvedilol -not currently on anticoagulation. Previously on warfarin, stopped December 2022 due to GI bleed. Offered LAAO but declined -on enoxaparin during hospitalization -per [facility] visit 04/09/23, will need follow-up with PCP to determine re-initiation of anticoagulation Status: Chronic (5) Chronic kidney disease, stage 3b: Status: Chronic (6) Elevated troponin: Problem details: Monitor and Trend this. Not currently having chest pain or acute ischemic EKG changes. 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 Also known to have underlying coronary artery disease. Status: Acute (7) Cardiac amyloidosis: Problem details: Echocardiogram appears relatively stable Status: Acute (8) Pleural effusion: Problem details: -history of cardiac amyloidosis. Routine therapeutic thoracentesis-scheduled for thoracentesis 04/18/2023 at [facility] (being done locally on 04/18) -General Surgery following -pleural fluid cell count and differential, total protein, LDH, glucose, cholesterol, culture, Gram stain, cytology, pH from April 2023 suggest chronic pleural effusion Cultures from that time show no growth. No malignancy. Improved on chronic torsemide Status: Chronic (9) Non Hodgkin's lymphoma: Problem details: Received 5 of 6 rounds of chemotherapy and stopped because of chronic pancytopenia Status: Chronic (10) Hypertension: Status: Chronic Plan Patient is in the hospital with broad-spectrum antibiotics for pneumonia, possibly hospital-acquired pneumonia, possibly Pneumocystis jiroveci pneumonia. Will continue to provide antibiotic therapy await test results. Consider transfer or outpatient referral for bronchoscopy if not improving. Total time spent today is 60 minutes, 40 minutes in coordination of care and discussing with patient and other providers ongoing evaluation management Subjective Date Seen: 05/26/23 Interval history: 77-year-old male with pancytopenia and lymphoma seen in followup of prolonged cough and dyspnea and fever. On admission he was thought to have a right upper lobe pneumonia as the cause of his symptoms. Due to his immunosuppression there was concerned that this could be Pneumocystis. Sputum for PCR and sputum culture are pending. He has been treated with piperacillin tazobactam. Considering initiating empiric therapy with atovaquone Patient reports today that he is feeling a little better. He thinks his cough is a little better. He thinks his fever might be a little better as well. He feels a little stronger today. Exam Narrative: Exam Narrative: He is alert and appears in no distress. He is oriented to his circumstances. Respirations are clear to auscultation except for a few basilar crackles. No wheezing. Cardiovascular: S1, S2, regular rate and rhythm. No murmur gallop or rub. Abdomen: Bowel sounds active. Abdomen is soft without tenderness. Extremities with trace edema. Const: Vital Signs, click to edit/add: Vital Signs - 24 hr 05/25/23 11:12 05/25/23 15:54 05/25/23 15:54 Temperature 99.2 F 99.2 F Pulse Rate [Pulse Oximeter] 84 74 Respiratory Rate 18 18 20 Blood Pressure [Ri ght Arm] 140/69 H Blood Pressure [Ri ght Upper Arm] 148/72 H Pulse Oximetry 95 97 97 Oxygen Delivery Me thod Room Air Room Air Room Air Documenting provider has reviewed patient's vital signs: yes Labs Labs: Laboratory Results - last 24 hr 05/25/23 05/25/23 05/25/23 12:15 12:57 13:09 WBC 2.43 L RBC 4.26 L Hgb 10.2 L Hct 32.4 L MCV 76 L MCH 24 L MCHC 32 RDW Coeff of Shukri 20.1 H Plt Count 105 L Neut % (Auto) 60.6 Lymph % (Auto) 5.3 L [place] % (Auto) 18.1 H Eos % (Auto) 7.0 Baso % (Auto) 0.8 Neut # (Auto) 1.50 L Lymph # (Auto) 0.10 L [place] # (Auto) 0.40 Eos # (Auto) 0.20 Baso # (Auto) 0.00 Abs Immat Gran (auto) 0.20 Imm/Tot Granulo (auto) 8.2 Diff Slide Review Sodium 135 Potassium 4.3 Chloride 99 Carbon Dioxide 27 Anion Gap 9 BUN 16 Creatinine 1.4 Estimated Creat Clear 44.90 Estimated GFR 51 Glucose 204 H Lactate 1.4 Calcium 9.2 Total Bilirubin 1.1 AST 32 ALT 21 Alkaline Phosphatase 108 Troponin I 0.13 H* NT-Pro-B Natriuret Pep 1700 Total Protein 6.4 Albumin 4.1 Urine Color Yellow Urine Appearance Clear Urine pH 8.5 Ur Specific [place] 1.015 Urine Protein 2+ A Urine Glucose (UA) Negative Urine Ketones Negative Urine Blood Negative Urine Nitrite Negative Urine Bilirubin Negative Urine Urobilinogen 0.2 Ur Leukocyte Esterase Negative Urine RBC 2-5 A Urine WBC 2-5 Urine WBC Clumps None Ur Squamous Epith Cells None Urine Bacteria None Urine L. pneumophilia Ag Urine Strep pneumoniae Ag SARS-CoV-2 (PCR) Negative SARS-CoV-2 Influenza Type A (PCR) Negative PCR FLU A Influenza Type B (PCR) Negative PCR FLU B Lab Acknowledgement 05/25/23 05/25/23 15:48 21:45 WBC RBC Hgb Hct MCV MCH MCHC RDW Coeff of Shukri Plt Count Neut % (Auto) Lymph % (Auto) [place] % (Auto) Eos % (Auto) Baso % (Auto) Neut # (Auto) Lymph # (Auto) [place] # (Auto) Eos # (Auto) Baso # (Auto) Abs Immat Gran (auto) Imm/Tot Granulo (auto) Diff Slide Review Sodium Potassium Chloride Carbon Dioxide Anion Gap BUN Creatinine Estimated Creat Clear Estimated GFR Glucose Lactate Calcium Total Bilirubin AST ALT Alkaline Phosphatase Troponin I NT-Pro-B Natriuret Pep Total Protein Albumin Urine Color Urine Appearance Urine pH Ur Specific [place] Urine Protein Urine Glucose (UA) Urine Ketones Urine Blood Urine Nitrite Urine Bilirubin Urine Urobilinogen Ur Leukocyte Esterase Urine RBC Urine WBC Urine WBC Clumps Ur Squamous Epith Cells Urine Bacteria Urine L. pneumophilia Ag L. pneumo Negative Urine Strep pneumoniae Ag S. pneumo Negative SARS-CoV-2 (PCR) Influenza Type A (PCR) Influenza Type B (PCR) Lab Acknowledgement Test Added
[2023-05-25 23:00] VITALS: BP 129/71; PULSE 78; PULSE 82; RESP 20; TEMP 36.8; O2SAT 92
[2023-05-25] MEDS: 0.9 % SODIUM CHLORIDE 250 ml IV (23:10)
[2023-05-26] VITALS (8 sets, daily range): BP systolic 91–145; BP diastolic 52–94; PULSE 62–86; RESP 16–20; TEMP 36.6–37.7; O2SAT 90–98
[2023-05-26] MEDS: PIPERACILLIN/TAZOBACTAM 3.375 GM in 0.9 % SODIUM CHLORIDE Mini-bag 100 ML IVPB ×4 (03:18→21:03)
--- NOTE | 2023-05-26 06:02 | PC.NURSE ---
Shift note: Pt is doing well, no fever recorded tonight. Alert and oriented. Independent in room. Pt is not able to cough out sputum sample for lab test. Neb and IS given but not effective to initiate sputum clearance. Alert and oriented.Vitally stable. The IV line got blocked, removed and new IV line inserted at 0300. Pt had adequate sleep. Used CPAP throughout the night.
[2023-05-26 06:54] LABS: Chloride* 103 mmol/L (96-114); Sodium* 133 mmol/L (135-149)
[2023-05-26 06:55] LABS: Potassium* 4.4 mmol/L (3.6-5.1)
[2023-05-26 06:57] LABS: Creatinine* 1.4 mg/dL (0.5-1.5); Estimated Glomerular Filt Rate 51 ml/min
[2023-05-26 06:58] LABS: Anion Gap 8 mEq/L (7-15); Blood Urea Nitrogen* 19 mg/dL (7-30); Calcium* 8.7 mg/dL (8.4-10.6); Carbon Dioxide* 22 mmol/L (20-32); Glucose* 138 mg/dL (60-115)
[2023-05-26 07:13] LABS: Troponin I* 0.13 ng/mL (0.01-0.04)
[2023-05-26 08:04] LABS: Basophils Percent Auto 1.5 % (0.0-3.0); Eosinophils Percent Auto 6.4 % (0.0-7.0); Hematocrit 33.5 % (37.0-53.0); Hemoglobin* 10.3 gm/dL (13.5-17.5); Immature Granulocytes Pct Auto 11.7 %; Lymphocytes Percent Auto 4.2 % (20-44); Mean Corpuscular HGB Conc 31 gm/dL (32-36); Mean Corpuscular Hemoglobin 24 pg (26-34); Mean Corpuscular Volume 76 fL (80-100); Neutrophils Percent Auto 53.2 % (42.0-72.0); Platelet Count* 98 K/uL (140-440); RDW Coefficient of Variation % 20.3 % (11.5-15.5); Red Blood Count 4.39 m/uL (4.30-5.90); White Blood Count* 2.65 K/uL (4.50-11.00)
[2023-05-26 08:07] LABS: Slide Review Reflex No
[2023-05-26 08:49] LABS: C Reactive Protein* 13.8 mg/dL (0.5-1.0)
[2023-05-26] MEDS: OMEPRAZOLE 20 MG CAPSULE DR 40 MG PO ×2 (09:28→21:08)
[2023-05-26] MEDS: ASPIRIN 81 MG TAB.CHEW PO (09:28)
[2023-05-26] MEDS: LOSARTAN POTASSIUM 50 MG TABLET 100 MG PO (09:28)
[2023-05-26] MEDS: ACYCLOVIR 200 MG CAPSULE 400 MG PO ×2 (09:28→21:06)
[2023-05-26] MEDS: MULTIVITAMIN/MINERALS 1 TABLET 1 TAB PO (09:28)
[2023-05-26] MEDS: ACETAMINOPHEN 650 MG TABLET ER 1300 MG PO ×2 (09:28→21:07)
[2023-05-26] MEDS: carvediloL 6.25 MG TABLET 9.375 MG PO ×2 (09:29→21:05)
[2023-05-26] MEDS: TORSEMIDE 20 MG TABLET PO (09:29)
[2023-05-26] MEDS: IPRAT-ALBUT 0.5-2.5 MG/3 ML NEB 1 NEB IH ×4 (09:29→21:02)
[2023-05-26] MEDS: SODIUM CHLORIDE 0.9 % (FLUSH) 10 ML SYRINGE 5 ML IVF ×2 (09:30→21:04)
[2023-05-26] MEDS: ESCITALOPRAM 10 MG TABLET PO (09:30)
[2023-05-26] MEDS: 0.9 % SODIUM CHLORIDE 250 ml IV (09:41)
[2023-05-26] MEDS: GUAIF/CODEINE 200/20MG/10 ML SOLUTION 5 ML PO ×2 (09:51→21:52)
[2023-05-26] MEDS: NON-FORMULARY MEDICATION 3 EACH INH (14:55)
--- NOTE | 2023-05-26 15:04 | RESP.RT ---
14:00 Induced Sputum; DuoNeb given with small volume Nebulizer, in line with Aerobika, followed with 4 ml of 3% sodium chloride for induced sputum. Post treatment patient able to expectorate 2 ml of thick triplett/brown/creme sections into sterile cup. Delivered to Lab.
--- NOTE | 2023-05-26 19:28 | PC.NURSE ---
Shift Note : Pt states he feels quite a bit better today. Moves well throughout his room independently. VS WNL, pt had one elevated temp at 1100 of 99.1. Good appetite. Voiding without difficulty.
[2023-05-26] MEDS: AZITHROMYCIN 250 MG TABLET 500 MG PO (21:07)
[2023-05-26] MEDS: ENOXAPARIN 40 MG/0.4 ML INJ SUBCUT (21:08)
[2023-05-27] VITALS (7 sets, daily range): BP systolic 113–151; BP diastolic 57–93; PULSE 62–82; RESP 18; TEMP 36.6–37.3; O2SAT 92–97
[2023-05-27] MEDS: PIPERACILLIN/TAZOBACTAM 3.375 GM in 0.9 % SODIUM CHLORIDE Mini-bag 100 ML IVPB ×4 (02:41→21:17)
--- NOTE | 2023-05-27 06:28 | PC.NURSE ---
Shift note: Pt has been sleeping well tonight. Complained that the Ipratropium neb makes him feel nauseated and prefers it is stopped. Had low grade fever of 99.9 at 2300. Alert and oriented. Independent in room.
[2023-05-27] MEDS: GUAIF/CODEINE 200/20MG/10 ML SOLUTION 5 ML PO (06:46)
[2023-05-27 07:04] LABS: Basophils Percent Auto 1.4 % (0.0-3.0); Eosinophils Percent Auto 12.2 % (0.0-7.0); Hematocrit 31.7 % (37.0-53.0); Hemoglobin* 9.9 gm/dL (13.5-17.5); Lymphocytes Percent Auto 5.4 % (20-44); Mean Corpuscular HGB Conc 31 gm/dL (32-36); Mean Corpuscular Hemoglobin 24 pg (26-34); Mean Corpuscular Volume 77 fL (80-100); Monocytes Percent Auto 18.1 % (0.0-11.0); Neutrophils Percent Auto 52.9 % (42.0-72.0); Platelet Count* 100 K/uL (140-440); RDW Coefficient of Variation % 20.7 % (11.5-15.5); Red Blood Count 4.13 m/uL (4.30-5.90); White Blood Count* 2.21 K/uL (4.50-11.00)
[2023-05-27 07:29] LABS: Slide Review Reflex Yes
[2023-05-27 07:30] LABS: Slide Review Acceptable Review (Acceptable)
[2023-05-27] MEDS: ACYCLOVIR 200 MG CAPSULE 400 MG PO ×2 (08:56→21:26)
[2023-05-27] MEDS: ACETAMINOPHEN 650 MG TABLET ER 1300 MG PO ×2 (08:56→21:26)
[2023-05-27] MEDS: OMEPRAZOLE 20 MG CAPSULE DR 40 MG PO ×2 (08:56→21:27)
[2023-05-27] MEDS: LOSARTAN POTASSIUM 50 MG TABLET 100 MG PO (08:56)
[2023-05-27] MEDS: MULTIVITAMIN/MINERALS 1 TABLET 1 TAB PO (08:57)
[2023-05-27] MEDS: ESCITALOPRAM 10 MG TABLET PO (08:57)
[2023-05-27] MEDS: TORSEMIDE 20 MG TABLET PO (08:57)
[2023-05-27] MEDS: carvediloL 6.25 MG TABLET 9.375 MG PO ×2 (08:57→21:26)
[2023-05-27] MEDS: ASPIRIN 81 MG TAB.CHEW PO (08:57)
[2023-05-27] MEDS: SODIUM CHLORIDE 0.9 % (FLUSH) 10 ML SYRINGE 5 ML IVF ×2 (08:59→21:23)
--- NOTE | 2023-05-27 11:10 | RESP.RT ---
Patient used Home CPAP last night with no issues. Patient using Aerobika and IS multiply times per hour with good effort/effect. Patient given Peak Flow meter to help document his Respiratory assessment. Patient able to do 260 Lpm with good effort. On room air SaO2 92-95%, breathing regular/easy. Patient has good loose Nonproductive cough able to clear secretions when present.
[2023-05-27] MEDS: IPRAT-ALBUT 0.5-2.5 MG/3 ML NEB 1 NEB IH ×3 (13:37→21:24)
--- NOTE | 2023-05-27 16:23 | P.IMPN_ITS ---
Progress Note: A&P Assessment and plan (1) Pneumonia: Problem details: Cough, fever and right upper lobe infiltrate ground-glass infiltrate suggest pneumonia. In this context I am concerned about Pneumocystis jiroveci. This is despite his presumed monthly prophylaxis with nebulized pentamidine. Sputum with PCR for Pneumocystis is obtained. Beta D glucan also obtained. Sputum culture is pending as well. Patient has allergy to Bactrim so will initiate atovaquone when it becomes available. Status: Acute (2) Insulin dependent diabetes mellitus with complications: Problem details: Continue home management. Status: Acute (3) Pancytopenia: Problem details: Present since chemotherapy for lymphoma early 2022. Has not recovered since discontinuing chemotherapy in October 2022 Status: Acute (4) Chronic a-fib: Problem details: -continue carvedilol -not currently on anticoagulation. Previously on warfarin, stopped December 2022 due to GI bleed. Offered LAAO but declined -on enoxaparin during hospitalization -per [facility] visit 04/09/23, will need follow-up with PCP to determine re-initiation of anticoagulation Status: Chronic (5) Chronic kidney disease, stage 3b: Status: Chronic (6) Elevated troponin: Problem details: Monitor and Trend this. Not currently having chest pain or acute ischemic EKG changes. 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 Also known to have underlying coronary artery disease. Status: Acute (7) Cardiac amyloidosis: Problem details: Echocardiogram appears relatively stable Status: Acute (8) Pleural effusion: Problem details: -history of cardiac amyloidosis. Routine therapeutic thoracentesis-scheduled for thoracentesis 04/18/2023 at [facility] (being done locally on 04/18) -General Surgery following -pleural fluid cell count and differential, total protein, LDH, glucose, cholesterol, culture, Gram stain, cytology, pH from April 2023 suggest chronic pleural effusion Cultures from that time show no growth. No malignancy. Improved on chronic torsemide Status: Chronic (9) Non Hodgkin's lymphoma: Problem details: Received 5 of 6 rounds of chemotherapy and stopped because of chronic pancytopenia Status: Chronic (10) Hypertension: Status: Chronic Plan Continue current treatment plan. Initiate atovaquone when available. Possible discharge to home tomorrow if remaining off oxygen and clinically stable. Close outpatient follow-up with pulmonology at [facility]. Time Spent With Patient Total time spent: Total time spent today is 45 minutes, 35 minutes in coordination care and discussing with patient and other providers ongoing management of pneumonia and pancytopenia Subjective Date Seen: 05/27/23 Interval history: 77-year-old male with pancytopenia and lymphoma seen in followup of prolonged cough and dyspnea and fever. On admission he was thought to have a right upper lobe pneumonia as the cause of his symptoms. Due to his immunosuppression there was concerned that this could be Pneumocystis. Sputum for PCR and sputum culture are pending. He has been treated with piperacillin tazobactam. Considering initiating empiric therapy with atovaquone Hospitalized here 6 weeks ago with similar illness. Had some clinical improvement but not resolution of symptoms since then. Had antibiotic treatment at that time and again 2 weeks ago. Patient reports today that he is feeling a little better. He thinks his cough is a little better. He thinks his fever might be a little better as well. Still having low-grade fevers. He feels a little stronger today. Exam Narrative: Exam Narrative: He is alert and appears in no distress. Respirations are clear to auscultation. Breathing is unlabored. No wheezing rales rhonchi. Cardiovascular: S1, S2, regular rate and rhythm. No murmur gallop or rub. Abdomen: Bowel sounds active. Abdomen is soft without tenderness or mass. Const: Vital Signs, click to edit/add: Vital Signs - 24 hr 05/26/23 19:00 05/26/23 23:00 05/26/23 23:00 Temperature 99.4 F 99.9 F H Pulse Rate Pulse Rate [Pulse Oximeter] 83 76 Respiratory Rate 18 18 18 Blood Pressure [Ri ght Arm] 131/71 115/52 L Pulse Oximetry 95 95 Oxygen Delivery Me thod Room Air Room Air 05/27/23 01:43 05/27/23 03:00 05/27/23 07:00 Temperature 98.4 F Pulse Rate 67 73 Pulse Rate [Pulse Oximeter] 68 Respiratory Rate 18 Blood Pressure [Ri ght Arm] 113/63 Pulse Oximetry 96 Oxygen Delivery Me thod Room Air 05/27/23 07:00 05/27/23 07:00 05/27/23 11:00 Temperature 99.2 F 97.9 F Pulse Rate Pulse Rate [Pulse Oximeter] 76 76 62 Respiratory Rate 18 18 18 Blood Pressure [Ri ght Arm] 151/76 H 121/84 Pulse Oximetry 93 96 Oxygen Delivery Me thod Room Air Room Air Documenting provider has reviewed patient's vital signs: yes Labs Labs: Laboratory Results - last 24 hr 05/27/23 06:05 WBC 2.21 L RBC 4.13 L Hgb 9.9 L Hct 31.7 L MCV 77 L MCH 24 L MCHC 31 L RDW Coeff of Shukri 20.7 H Plt Count 100 L Neut % (Auto) 52.9 Lymph % (Auto) 5.4 L [place] % (Auto) 18.1 H Eos % (Auto) 12.2 H Baso % (Auto) 1.4 Neut # (Auto) 1.20 L Lymph # (Auto) 0.10 L [place] # (Auto) 0.40 Eos # (Auto) 0.30 Baso # (Auto) 0.00 Abs Immat Gran (auto) 0.20 Imm/Tot Granulo (auto) 10.0 Diff Slide Review Acceptable Review
--- NOTE | 2023-05-27 18:10 | PC.NURSE ---
Shift Note : Pt friendly and cooperative. Feeling better and stronger today. VSS, but he continues to have a consistent elevated temp around 99.2. Refused duo-neb this morning d/t them making him cough, but after discussing with MD he has been compliant with neb treatments. Frequent aerobika use. LS in upper lobes clear, throughout other weathers there is coarse rhonchi. Telemetry dc'd and pt in to shower.
[2023-05-27] MEDS: 0.9 % SODIUM CHLORIDE 250 ml IV (21:18)
[2023-05-27] MEDS: AZITHROMYCIN 250 MG TABLET 500 MG PO (21:27)
[2023-05-27] MEDS: ENOXAPARIN 40 MG/0.4 ML INJ SUBCUT (21:28)
[2023-05-28] MEDS: PIPERACILLIN/TAZOBACTAM 3.375 GM in 0.9 % SODIUM CHLORIDE Mini-bag 100 ML IVPB ×2 (02:34→08:58)
[2023-05-28 03:00] VITALS: BP 128/71; PULSE 72; RESP 18; TEMP 37.2; O2SAT 96
[2023-05-28] MEDS: GUAIF/CODEINE 200/20MG/10 ML SOLUTION 5 ML PO ×2 (05:29→11:55)
--- NOTE | 2023-05-28 06:09 | PC.NURSE ---
Shift note: Pt's condition is stable as no fever reported tonight. Coughing subsided, 1x cough medication requested. Alert and orient, Ambulate independently in room. Vitally stable.
[2023-05-28 06:16] LABS: Basophils Percent Auto 1.1 % (0.0-3.0); Eosinophils Percent Auto 10.2 % (0.0-7.0); Hematocrit 30.5 % (37.0-53.0); Hemoglobin* 9.6 gm/dL (13.5-17.5); Immature Granulocytes Pct Auto 9.7 %; Lymphocytes Percent Auto 5.4 % (20-44); Mean Corpuscular HGB Conc 32 gm/dL (32-36); Mean Corpuscular Hemoglobin 24 pg (26-34); Mean Corpuscular Volume 77 fL (80-100); Monocytes Percent Auto 16.1 % (0.0-11.0); Neutrophils Percent Auto 57.5 % (42.0-72.0); Platelet Count* 91 K/uL (140-440); RDW Coefficient of Variation % 20.3 % (11.5-15.5); Red Blood Count 3.98 m/uL (4.30-5.90)
[2023-05-28 06:19] LABS: Slide Review Reflex Yes; White Blood Count* 1.86 K/uL (4.50-11.00)
[2023-05-28 07:16] LABS: Slide Review Acceptable Review (Acceptable)
[2023-05-28 08:00] VITALS: BP 157/75; PULSE 81; RESP 20; TEMP 37.7; O2SAT 94
[2023-05-28] MEDS: TORSEMIDE 20 MG TABLET PO (08:46)
[2023-05-28] MEDS: ASPIRIN 81 MG TAB.CHEW PO (08:46)
[2023-05-28] MEDS: LOSARTAN POTASSIUM 50 MG TABLET 100 MG PO (08:46)
[2023-05-28] MEDS: ACETAMINOPHEN 650 MG TABLET ER 1300 MG PO (08:46)
[2023-05-28] MEDS: MULTIVITAMIN/MINERALS 1 TABLET 1 TAB PO (08:46)
[2023-05-28] MEDS: carvediloL 6.25 MG TABLET 9.375 MG PO (08:46)
[2023-05-28] MEDS: ACYCLOVIR 200 MG CAPSULE 400 MG PO (08:47)
[2023-05-28] MEDS: ESCITALOPRAM 10 MG TABLET PO (08:47)
[2023-05-28] MEDS: OMEPRAZOLE 20 MG CAPSULE DR 40 MG PO (08:47)
[2023-05-28] MEDS: SODIUM CHLORIDE 0.9 % (FLUSH) 10 ML SYRINGE 5 ML IVF (08:57)
--- NOTE | 2023-05-28 11:11 | NUTR.NU ---
RDN with diet education related to low sodium diet. Patient admitted for pneumonia. Current diet is low sodium. Weight 198 lb 7 oz; Height 5ft 10in; BMI is overweight at 28.5 kg/m2. Weight has been stable within the last 180 days. RDN visited with patient and designated caregiver (, Jenifer) whom reports eating a low sodium diet at home. They declined diet education related to a low sodium diet at this time. Patient also reports poor blood sugar control at home. Patient saw RDN in clinic on 05/11/23 related to diabetes. Patient declined diet education at this time related to diabetes. RDN encouraged patient to contact RDN in clinic to inquire about a follow-up visit if he is interested. Plan for patient to discharge home today.
--- NOTE | 2023-05-28 13:07 | PC.NURSE ---
Pt up independently in room. On room air. Denies pain. IV DC'd, cath tip intact. DC instructions given verbally and in writing to pt and spouse. Follow up appointment for 06/04 with PCP as previously scheduled. All questions answered. WC @[id number] to DC home with .
--- NOTE | 2023-05-28 13:11 | P.DS_ITS ---
DS: Providers Provider Date Seen: 05/28/23 Date of admission: 05/25/23 15:50 Primary care physician: Mathew Simpson MD Admitting Clinician: Liam Davis MD Attending Physician on discharge: Liam Davis MD Date of Discharge: 05/28/23 DS: Diagnosis Discharge Diagnosis (1) Pneumonia: Status: Acute Problem details: Cough, fever and right upper lobe infiltrate ground-glass infiltrate suggest pneumonia. In this context I am concerned about Pneumocystis jiroveci. This is despite his presumed monthly prophylaxis with nebulized pentamidine. Sputum with PCR for Pneumocystis is obtained. Beta D glucan also obtained. Sputum culture is pending as well. Patient has allergy to Bactrim so will initiate atovaquone when it becomes available. (2) Immunosuppression: Status: Acute Problem details: Chronic neutropenia and lymphopenia since October of 2022 when chemotherapy for lymphoma was discontinued due to neutropenia and lymphopenia (3) Pancytopenia: Status: Acute Problem details: Present since chemotherapy for lymphoma early 2022. Has not recovered since discontinuing chemotherapy in October 2022 (4) Cardiac amyloidosis: Status: Acute Problem details: Echocardiogram appears relatively stable. Mild stable elevation of troponin probably due to cardiac amyloidosis. (5) Elevated troponin: Status: Acute Problem details: Monitor and Trend this. Not currently having chest pain or acute ischemic EKG changes. 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 Also known to have underlying coronary artery disease. (6) Chronic a-fib: Status: Chronic Problem details: -continue carvedilol -not currently on anticoagulation. Previously on warfarin, stopped December 2022 due to GI bleed. Offered LAAO but declined -on enoxaparin during hospitalization -per [facility] visit 04/09/23, will need follow-up with PCP to determine re-initiation of anticoagulation (7) Insulin dependent diabetes mellitus with complications: Status: Acute Problem details: Continue home management. (8) Pleural effusion: Status: Acute Problem details: Stable, due to amyloidosis (9) Diabetes: Status: Chronic DS: Summary Hospital Course Hospital Course: 77-year-old male admitted to the hospital with cough fever and hypoxia. Patient was hospitalized mid April 2023 with similar symptoms. He had modest improvement with treatment with community-acquired pneumonia antibiotics. His cough never resolved however. Reports ongoing cough and fatigue and this acutely got worse a couple days prior to admission. Was also treated with a course of doxycycline about 3 weeks ago without any benefit. On this admission CT of the chest showed a new right upper lobe ground-glass infiltrate. Due to his history of neutropenia and lymphopenia related to his lymphoma and chemotherapy in the spring there was concern about an opportunistic infection. Sputum PCR for Pneumocystis with sent. Beta D glucan test was sent as well. These results are pending. It was decided to empirically start tr eatment with atovaquone pending these tests. During his 3 days of hospital stay he did get better with improvement in his strength and fever. He still having low-grade fevers and still has a prominent cough however. His hypoxia has resolved. After discussion with the patient was decided he would go home today with outpatient atovaquone treatment. He is to arrange follow-up with his primary care doctor in a week and in 2 weeks with his mail rider at [facility]. Hopefully by then some useful results will come back from pending tests. Time Spent with Patient Time attestation: Total time spent providing and/or coordinating discharge services: 45 minutes Time spent: Greater than 30 minutes Exam Narrative: Exam Narrative: He is alert and appears in no distress. Breathing is unlabored. Respirations are relatively clear to auscultation without wheezing rales or rhonchi. Cardiovascular: S1, S2, relatively regular rhythm. Abdomen is soft without tenderness or mass. Extremities without edema. Const: Vital Signs, click to edit/add: Vital Signs - 24 hr 05/27/23 15:00 05/27/23 15:00 05/27/23 19:00 Temperature 99.2 F 99 F Pulse Rate [Pulse Oximeter] 71 71 77 Respiratory Rate 18 18 18 Blood Pressure [Ri ght Arm] 114/93 H 135/62 Pulse Oximetry 97 97 Oxygen Delivery Me thod Room Air Room Air 05/27/23 23:00 05/27/23 23:00 05/28/23 03:00 Temperature 98.4 F 99 F Pulse Rate [Pulse Oximeter] 82 72 Respiratory Rate 18 18 18 Blood Pressure [Ri ght Arm] 130/57 L 128/71 Pulse Oximetry 92 96 Oxygen Delivery Me thod Room Air Room Air 05/28/23 08:00 05/28/23 08:00 Temperature 99.8 F H Pulse Rate [Pulse Oximeter] 81 Respiratory Rate 20 20 Blood Pressure [Ri ght Arm] 157/75 H Pulse Oximetry 94 Oxygen Delivery Me thod Room Air Documenting provider has reviewed patient's vital signs: yes DS: Data Data Completed and Pending Completed studies during hospitalization: Procedures Drainage of Left Pleural Cavity, Percutaneous Approach, Diagnostic (04/16/23) Labs on day of discharge: Labs from last 24 hours 05/28/23 05:53 WBC 1.86 L* RBC 3.98 L Hgb 9.6 L Hct 30.5 L MCV 77 L MCH 24 L MCHC 32 RDW Coeff of Shukri 20.3 H Plt Count 91 L Neut % (Auto) 57.5 Lymph % (Auto) 5.4 L Rolette % (Auto) 16.1 H Eos % (Auto) 10.2 H Baso % (Auto) 1.1 Neut # (Auto) 1.10 L Lymph # (Auto) 0.10 L Rolette # (Auto) 0.30 Eos # (Auto) 0.20 Baso # (Auto) 0.00 Abs Immat Gran (auto) 0.20 Imm/Tot Granulo (auto) 9.7 Diff Slide Review Acceptable Review Preliminary micro results at discharge 05/25/23 13:09 Blood Culture - Preliminary Blood NO GROWTH AFTER 48 HOURS 05/25/23 13:15 Blood Culture - Preliminary Blood NO GROWTH AFTER 48 HOURS Discharge Plan Discharge Disposition: Home, Self-Care Date of Admission: 05/25/23 15:50 Attending Provider on Discharge: Liam Davis Primary Care Provider: Mathew Simpson Condition: Stable Anticipated Discharge Date/Time: 05/28/23 10:20 Discharge Medications: New atovaquone 750 mg/5 mL suspension 750 mg PO BID Qty: 210 0RF Rx Instructions: must administer with food, preferably a high-fat meal levofloxacin 500 mg tablet 500 mg PO DAILY Qty: 4 0RF Continued acetaminophen 650 mg tablet extended release 1,300 mg PO BID nitroglycerin 0.4 mg tablet, sublingual 0.4 mg sublingual Q5M PRN Patient Comments: Place 1 tablet (0.4 mg total) under the tongue every 5 (five) minutes as needed for chest pain. May repeat every 5 minutes for up to 3 doses losartan 100 mg tablet 100 mg PO DAILY Qty: 90 3RF Vitron-C 65 mg iron- 125 mg tablet,delayed release (DR/EC) 1 tab PO BID Qty: 60 5RF ipratropium-albuterol 0.5 mg-3 mg(2.5 mg base)/3 mL solution for nebulization 3 ml inhalation QID PRN (Reason: shortness of breath or wheezing) Qty: 180 1RF codeine-guaifenesin 10-100 mg/5 mL liquid 5 ml PO Q4-6H PRN (Reason: cough) Qty: 120 2RF Qvar RediHaler 80 mcg/actuation HFA aerosol breath activated 1 inh inhalation BID Qty: 10.6 1RF multivitamin [Daily Multi-Vitamin] Tablet 1 tab PO DAILY diclofenac sodium [Voltaren Arthritis Pain] 1 % gel 2 g topical QID PRN acyclovir 400 mg tablet 400 mg PO BID carvedilol 3.125 mg tablet 9.375 mg PO BID Qty: 540 3RF Rx Instructions: must administer with a meal/food pantoprazole 40 mg tablet,delayed release (DR/EC) 40 mg PO BID insulin glargine 100 unit/mL (3 mL) insulin pen 30 unit subcut HS escitalopram oxalate [Lexapro] 10 mg tablet 10 mg PO DAILY aspirin 81 mg tablet,chewable 81 mg PO DAILY amoxicillin 500 mg capsule See Rx Instructions .ROUTE .COMPLEX Qty: 4 3RF Dose Instruction: Take 4 capsules (2000mg) by mouth 1 hour prior to dental appointment. Rx Instructions: Take 4 capsules (2000mg) by mouth 1 hour prior to dental appointment. torsemide 20 mg tablet 20 mg PO DAILY Discharge Orders: Discharge Order (Routine); Ordered 05/28/23 Ordered By: Liam Davis Patient Education: Atovaquone (By mouth), Levofloxacin (By mouth) Additional Instructions: Call your mail rider at [facility] for a follow-up appointment in the next couple weeks. Activity Level: Activity as Tolerated Discharge Diet: Regular Follow Up Appointments: Mathew Simpson MD [Primary Care Provider] - 06/04/23 11:30 am ([facility] for follow-up.) Forms: [facility] Info Instructions
== END 2023-05-28 12:26 | disposition home or self-care (01) | DRG 193 ==
LOC: ED 15:39 → MEDSURG 18:21
PROVIDERS: Admitting Provider Family Medicine; Emergency Provider Student in an Organized Health Care Education/Training Program; PCP Family Medicine; Visit Provider Family Medicine
DX: J18.9 Pneumonia, unspecified organism (principal); D61.810 Antineoplastic chemotherapy induced pancytopenia; C85.90 Non-Hodgkin lymphoma, unspecified, unspecified site; D84.81 Immunodeficiency due to conditions classified elsewhere; E85.4 Organ-limited amyloidosis; I43 Cardiomyopathy in diseases classified elsewhere; I48.20 Chronic atrial fibrillation, unspecified; J91.8 Pleural effusion in other conditions classified elsewhere; J99 Respiratory disorders in diseases classified elsewhere; D70.1 Agranulocytosis secondary to cancer chemotherapy; T45.1X5A Adverse effect of antineoplastic and immunosuppressive drugs, initial encounter; I12.9 Hypertensive chronic kidney disease with stage 1 through stage 4 chronic kidney disease, or unspecified chronic kidney disease; E11.22 Type 2 diabetes mellitus with diabetic chronic kidney disease; N18.32 Chronic kidney disease, stage 3b; I25.10 Atherosclerotic heart disease of native coronary artery without angina pectoris; F32.A Depression, unspecified; G47.419 Narcolepsy without cataplexy; Z79.4 Long term (current) use of insulin
CPT/HCPCS: 36415; 51798; 71250; 80048; 80053; 81001; 83605; 83880; 84484; 85025; 86140; 87015; 87040; 87070; 87081; 87086; 87449; 87631; 87798; 87899; 93306; 94640; 94664; 97110; 97116; 97161; 97165; 99283; 99285; A9153; A9270; J1650; J2543; J7050

== ENCOUNTER 2023-06-26 11:59 | Outpatient (RCR) | payer MEDICARE, OTHER, SELFPAY ==
[2022-08-07 14:29] LABS: INR 2.48 (0.91-1.10); Prothrombin Time 28.1 Seconds
[2022-08-07 14:38] LABS: Basophils Percent Auto 0.2 % (0.0-3.0); Eosinophils Percent Auto 2.6 % (0.0-7.0); Hematocrit 40.5 % (37.0-53.0); Hemoglobin* 13.3 gm/dL (13.5-17.5); Immature Granulocytes Pct Auto 7.4 %; Lymphocytes Percent Auto 1.1 % (20-44); Mean Corpuscular HGB Conc 33 gm/dL (32-36); Mean Corpuscular Hemoglobin 27 pg (26-34); Mean Corpuscular Volume 82 fL (80-100); Monocytes Percent Auto 4.2 % (0.0-11.0); Neutrophils Percent Auto 84.5 % (42.0-72.0); Platelet Count* 98 K/uL (140-440); RDW Coefficient of Variation % 14.7 % (11.5-15.5); Red Blood Count 4.92 m/uL (4.30-5.90); White Blood Count* 18.39 K/uL (4.50-11.00)
[2022-08-07 14:39] LABS: Slide Review Reflex No
[2022-08-14 11:28] LABS: Basophils Percent Auto 0.6 % (0.0-3.0); Eosinophils Percent Auto 2.3 % (0.0-7.0); Hematocrit 39.2 % (37.0-53.0); Hemoglobin* 12.9 gm/dL (13.5-17.5); Immature Granulocytes Pct Auto 1.3 %; Lymphocytes Percent Auto 1.7 % (20-44); Mean Corpuscular HGB Conc 33 gm/dL (32-36); Mean Corpuscular Hemoglobin 27 pg (26-34); Mean Corpuscular Volume 82 fL (80-100); Monocytes Percent Auto 5.3 % (0.0-11.0); Neutrophils Percent Auto 88.8 % (42.0-72.0); Platelet Count* 76 K/uL (140-440); RDW Coefficient of Variation % 15.3 % (11.5-15.5); White Blood Count* 14.32 K/uL (4.50-11.00)
[2022-08-14 11:32] LABS: Slide Review Reflex No
[2022-08-14 11:42] LABS: INR 2.85 (0.91-1.10); Prothrombin Time 31.2 Seconds
[2022-08-21 10:48] LABS: Basophils Absolute Auto 0.09 K/uL (0.00-0.30); Basophils Percent Auto 1.1 % (0.0-3.0); Eosinophils Absolute Auto 0.35 K/uL (0.00-0.50); Eosinophils Percent Auto 4.4 % (0.0-7.0); Hematocrit 40.4 % (37.0-53.0); Hemoglobin* 13.5 gm/dL (13.5-17.5); Immature Granulocytes Abs Auto 0.02 K/uL (0.00-0.30); Immature Granulocytes Pct Auto 0.3 %; Lymphocytes Percent Auto 8.4 % (20-44); Mean Corpuscular HGB Conc 33 gm/dL (32-36); Mean Corpuscular Hemoglobin 27 pg (26-34); Mean Corpuscular Volume 81 fL (80-100); Monocytes Percent Auto 8.8 % (0.0-11.0); Platelet Count* 98 K/uL (140-440); RDW Coefficient of Variation % 15.6 % (11.5-15.5); Red Blood Count 4.99 m/uL (4.30-5.90); White Blood Count* 7.93 K/uL (4.50-11.00)
[2022-08-21 10:53] LABS: Slide Review Reflex No
[2022-08-21 11:00] LABS: INR 2.69 (0.91-1.10); Prothrombin Time 29.9 Seconds
[2022-08-28 11:18] LABS: Basophils Absolute Auto 0.06 K/uL (0.00-0.30); Basophils Percent Auto 0.9 % (0.0-3.0); Eosinophils Percent Auto 9.5 % (0.0-7.0); Hematocrit 39.6 % (37.0-53.0); Hemoglobin* 13.3 gm/dL (13.5-17.5); Immature Granulocytes Abs Auto 0.01 K/uL (0.00-0.30); Immature Granulocytes Pct Auto 0.1 %; Lymphocytes Percent Auto 12.9 % (20-44); Mean Corpuscular HGB Conc 34 gm/dL (32-36); Mean Corpuscular Hemoglobin 27 pg (26-34); Mean Corpuscular Volume 82 fL (80-100); Monocytes Percent Auto 9.2 % (0.0-11.0); Neutrophils Absolute Auto 4.53 K/uL (1.7-7.0); Neutrophils Percent Auto 67.4 % (42.0-72.0); Platelet Count* 62 K/uL (140-440); RDW Coefficient of Variation % 16.2 % (11.5-15.5); Red Blood Count 4.85 m/uL (4.30-5.90); White Blood Count* 6.73 K/uL (4.50-11.00)
[2022-08-28 11:22] LABS: Slide Review Reflex No
[2022-08-28 11:40] LABS: INR 2.13 (0.91-1.10); Prothrombin Time 24.9 Seconds
[2022-09-04 13:11] LABS: Basophils Absolute Auto 0.04 K/uL (0.00-0.30); Basophils Percent Auto 0.8 % (0.0-3.0); Hematocrit 37.2 % (37.0-53.0); Hemoglobin* 12.5 gm/dL (13.5-17.5); Lymphocytes Percent Auto 12.8 % (20-44); Mean Corpuscular HGB Conc 34 gm/dL (32-36); Mean Corpuscular Hemoglobin 28 pg (26-34); Mean Corpuscular Volume 84 fL (80-100); Monocytes Percent Auto 6.7 % (0.0-11.0); Neutrophils Absolute Auto 3.39 K/uL (1.7-7.0); Neutrophils Percent Auto 68.7 % (42.0-72.0); Platelet Count* 76 K/uL (140-440); RDW Coefficient of Variation % 16.5 % (11.5-15.5); Red Blood Count 4.45 m/uL (4.30-5.90); White Blood Count* 4.93 K/uL (4.50-11.00)
[2022-09-04 13:14] LABS: Slide Review Reflex No
[2022-09-11 13:39] LABS: Basophils Percent Auto 0.2 % (0.0-3.0); Eosinophils Percent Auto 3.5 % (0.0-7.0); Hematocrit 37.5 % (37.0-53.0); Hemoglobin* 12.4 gm/dL (13.5-17.5); Immature Granulocytes Pct Auto 2.4 %; Lymphocytes Percent Auto 2.3 % (20-44); Mean Corpuscular HGB Conc 33 gm/dL (32-36); Mean Corpuscular Hemoglobin 28 pg (26-34); Mean Corpuscular Volume 85 fL (80-100); Monocytes Percent Auto 12.1 % (0.0-11.0); Neutrophils Percent Auto 79.5 % (42.0-72.0); Platelet Count* 85 K/uL (140-440); RDW Coefficient of Variation % 17.4 % (11.5-15.5); White Blood Count* 15.21 K/uL (4.50-11.00)
[2022-09-11 14:19] LABS: INR 1.93 (0.91-1.10); Prothrombin Time 23.1 Seconds
[2022-09-11 14:57] LABS: Slide Review Reflex Yes
[2022-09-11 14:59] LABS: Slide Review Acceptable Review (Acceptable)
[2022-09-18 12:05] LABS: Basophils Percent Auto 0.5 % (0.0-3.0); Eosinophils Percent Auto 1.6 % (0.0-7.0); Hematocrit 39.4 % (37.0-53.0); Immature Granulocytes Pct Auto 0.9 %; Lymphocytes Percent Auto 2.1 % (20-44); Mean Corpuscular HGB Conc 33 gm/dL (32-36); Mean Corpuscular Hemoglobin 28 pg (26-34); Mean Corpuscular Volume 86 fL (80-100); Monocytes Percent Auto 4.2 % (0.0-11.0); Neutrophils Percent Auto 90.7 % (42.0-72.0); Platelet Count* 72 K/uL (140-440); RDW Coefficient of Variation % 17.4 % (11.5-15.5); Red Blood Count 4.58 m/uL (4.30-5.90); White Blood Count* 12.97 K/uL (4.50-11.00)
[2022-09-18 12:18] LABS: Slide Review Reflex No
[2022-09-18 12:35] LABS: INR 1.44 (0.91-1.10); Prothrombin Time 18.3 Seconds
[2022-10-09 12:02] LABS: Basophils Percent Auto 0.1 % (0.0-3.0); Eosinophils Percent Auto 1.7 % (0.0-7.0); Hematocrit 37.9 % (37.0-53.0); Hemoglobin* 12.7 gm/dL (13.5-17.5); Immature Granulocytes Pct Auto 5.4 %; Lymphocytes Percent Auto 0.4 % (20-44); Mean Corpuscular HGB Conc 34 gm/dL (32-36); Mean Corpuscular Hemoglobin 29 pg (26-34); Mean Corpuscular Volume 87 fL (80-100); Monocytes Percent Auto 2.9 % (0.0-11.0); Neutrophils Percent Auto 89.5 % (42.0-72.0); Platelet Count* 72 K/uL (140-440); RDW Coefficient of Variation % 16.6 % (11.5-15.5); Red Blood Count 4.34 m/uL (4.30-5.90)
[2022-10-09 12:33] LABS: INR 1.34 (0.91-1.10); Prothrombin Time 17.4 Seconds
[2022-10-09 12:46] LABS: Slide Review Reflex Yes; White Blood Count* 25.19 K/uL (4.50-11.00)
[2022-10-09 12:48] LABS: Slide Review Acceptable Review (Acceptable)
[2022-10-16 13:03] LABS: Basophils Percent Auto 0.4 % (0.0-3.0); Eosinophils Percent Auto 2.7 % (0.0-7.0); Hematocrit 39.6 % (37.0-53.0); Hemoglobin* 13.1 gm/dL (13.5-17.5); Immature Granulocytes Pct Auto 0.5 %; Lymphocytes Percent Auto 1.3 % (20-44); Mean Corpuscular HGB Conc 33 gm/dL (32-36); Mean Corpuscular Hemoglobin 29 pg (26-34); Mean Corpuscular Volume 87 fL (80-100); Neutrophils Percent Auto 91.1 % (42.0-72.0); Platelet Count* 61 K/uL (140-440); RDW Coefficient of Variation % 16.3 % (11.5-15.5); Red Blood Count 4.53 m/uL (4.30-5.90); White Blood Count* 14.15 K/uL (4.50-11.00)
[2022-10-16 13:10] LABS: Slide Review Reflex No
[2022-10-16 13:26] LABS: INR 1.19 (0.91-1.10); Prothrombin Time 15.8 Seconds
[2022-10-23 12:07] LABS: Basophils Absolute Auto 0.05 K/uL (0.00-0.30); Basophils Percent Auto 0.9 % (0.0-3.0); Eosinophils Absolute Auto 0.32 K/uL (0.00-0.50); Eosinophils Percent Auto 5.5 % (0.0-7.0); Hematocrit 37.3 % (37.0-53.0); Hemoglobin* 12.5 gm/dL (13.5-17.5); Immature Granulocytes Abs Auto 0.01 K/uL (0.00-0.30); Immature Granulocytes Pct Auto 0.2 %; Lymphocytes Percent Auto 3.1 % (20-44); Mean Corpuscular HGB Conc 34 gm/dL (32-36); Mean Corpuscular Hemoglobin 29 pg (26-34); Mean Corpuscular Volume 87 fL (80-100); Monocytes Percent Auto 8.9 % (0.0-11.0); Neutrophils Percent Auto 81.4 % (42.0-72.0); Platelet Count* 89 K/uL (140-440); RDW Coefficient of Variation % 15.7 % (11.5-15.5); Red Blood Count 4.31 m/uL (4.30-5.90); White Blood Count* 5.87 K/uL (4.50-11.00)
[2022-10-23 12:08] LABS: Slide Review Reflex No
[2022-10-30 11:54] LABS: INR 1.54 (0.91-1.10); Prothrombin Time 19.3 Seconds
[2022-10-30 12:27] LABS: Basophils Absolute Auto 0.05 K/uL (0.00-0.30); Basophils Percent Auto 0.9 % (0.0-3.0); Eosinophils Percent Auto 8.6 % (0.0-7.0); Hematocrit 38.4 % (37.0-53.0); Immature Granulocytes Abs Auto 0.01 K/uL (0.00-0.30); Immature Granulocytes Pct Auto 0.2 %; Lymphocytes Percent Auto 3.4 % (20-44); Mean Corpuscular HGB Conc 34 gm/dL (32-36); Mean Corpuscular Hemoglobin 29 pg (26-34); Mean Corpuscular Volume 85 fL (80-100); Neutrophils Percent Auto 76.9 % (42.0-72.0); Platelet Count* 105 K/uL (140-440); RDW Coefficient of Variation % 15.4 % (11.5-15.5); Red Blood Count 4.52 m/uL (4.30-5.90); White Blood Count* 5.32 K/uL (4.50-11.00)
[2022-10-30 12:28] LABS: Slide Review Reflex No
[2022-11-06 12:05] LABS: Basophils Percent Auto 0.2 % (0.0-3.0); Eosinophils Percent Auto 2.5 % (0.0-7.0); Hematocrit 36.6 % (37.0-53.0); Hemoglobin* 12.4 gm/dL (13.5-17.5); Immature Granulocytes Pct Auto 12.6 %; Lymphocytes Percent Auto 0.5 % (20-44); Mean Corpuscular HGB Conc 34 gm/dL (32-36); Mean Corpuscular Hemoglobin 30 pg (26-34); Mean Corpuscular Volume 88 fL (80-100); Monocytes Percent Auto 5.9 % (0.0-11.0); Neutrophils Percent Auto 78.3 % (42.0-72.0); Platelet Count* 70 K/uL (140-440); RDW Coefficient of Variation % 15.9 % (11.5-15.5); Red Blood Count 4.16 m/uL (4.30-5.90)
[2022-11-06 12:13] LABS: Slide Review Reflex Yes
[2022-11-06 12:14] LABS: Slide Review Acceptable Review (Acceptable)
[2022-11-06 12:22] LABS: INR 1.94 (0.91-1.10); Prothrombin Time 23.2 Seconds
[2022-11-13 12:31] LABS: Hematocrit 38.5 % (37.0-53.0); Hemoglobin* 12.8 gm/dL (13.5-17.5); Mean Corpuscular HGB Conc 33 gm/dL (32-36); Mean Corpuscular Hemoglobin 29 pg (26-34); Mean Corpuscular Volume 88 fL (80-100); Red Blood Count 4.36 m/uL (4.30-5.90); White Blood Count* 14.49 K/uL (4.50-11.00)
[2022-11-13 12:32] LABS: Basophils Percent Auto 0.3 % (0.0-3.0); Eosinophils Percent Auto 1.9 % (0.0-7.0); Immature Granulocytes Pct Auto 1.8 %; Lymphocytes Percent Auto 0.8 % (20-44); Monocytes Percent Auto 4.1 % (0.0-11.0); Neutrophils Percent Auto 91.1 % (42.0-72.0); Platelet Count* 72 K/uL (140-440); RDW Coefficient of Variation % 15.7 % (11.5-15.5); Slide Review Reflex No
[2022-11-13 12:39] LABS: Chloride* 106 mmol/L (96-114); Potassium* 3.9 mmol/L (3.6-5.1); Sodium* 140 mmol/L (135-149)
[2022-11-13 12:41] LABS: Bilirubin Total* 0.8 mg/dL (0.1-1.5); Creatinine* 1.3 mg/dL (0.5-1.5); Estimated Glomerular Filt Rate 56 ml/min; INR 1.75 (0.91-1.10); Prothrombin Time 21.3 Seconds
[2022-11-13 12:42] LABS: Alanine Aminotransferase* 23 U/L (4-50); Alkaline Phosphatase* 158 U/L (40-150); Aspartate Amino Transferase* 26 U/L (12-35); Blood Urea Nitrogen* 18 mg/dL (7-30); Calcium* 9.2 mg/dL (8.4-10.6); Carbon Dioxide* 26 mmol/L (20-32); Glucose* 183 mg/dL (60-115); Total Protein* 6.4 g/dL (6.0-8.3)
[2022-11-14 21:38] LABS: Sex Hormone Binding Globulin 60 nmol/L (19-76); Testosterone, Adult Male 427 ng/dL (300-720); Testosterone, Free Calculation 54 pg/mL (47-244); Testosterone, Percentage Free 1.3 % (1.6-2.9)
[2022-11-16 03:43] LABS: PSA Diagnostic* 4.23 ng/mL (0.10-4.00)
[2022-11-20 11:36] LABS: Basophils Absolute Auto 0.07 K/uL (0.00-0.30); Eosinophils Absolute Auto 0.29 K/uL (0.00-0.50); Eosinophils Percent Auto 4.2 % (0.0-7.0); Hematocrit 36.4 % (37.0-53.0); Hemoglobin* 12.2 gm/dL (13.5-17.5); Immature Granulocytes Abs Auto 0.01 K/uL (0.00-0.30); Immature Granulocytes Pct Auto 0.1 %; Lymphocytes Percent Auto 2.6 % (20-44); Mean Corpuscular HGB Conc 34 gm/dL (32-36); Mean Corpuscular Hemoglobin 30 pg (26-34); Mean Corpuscular Volume 89 fL (80-100); Monocytes Percent Auto 8.7 % (0.0-11.0); Neutrophils Percent Auto 83.4 % (42.0-72.0); Platelet Count* 87 K/uL (140-440); RDW Coefficient of Variation % 15.6 % (11.5-15.5); Red Blood Count 4.11 m/uL (4.30-5.90); White Blood Count* 6.89 K/uL (4.50-11.00)
[2022-11-20 11:39] LABS: Slide Review Reflex No
[2022-11-20 11:52] LABS: Prothrombin Time 20.9 Seconds
[2022-11-27 10:34] LABS: Basophils Absolute Auto 0.04 K/uL (0.00-0.30); Basophils Percent Auto 0.8 % (0.0-3.0); Eosinophils Percent Auto 5.9 % (0.0-7.0); Hematocrit 35.5 % (37.0-53.0); Hemoglobin* 11.8 gm/dL (13.5-17.5); Immature Granulocytes Abs Auto 0.01 K/uL (0.00-0.30); Immature Granulocytes Pct Auto 0.2 %; Lymphocytes Percent Auto 3.5 % (20-44); Mean Corpuscular HGB Conc 33 gm/dL (32-36); Mean Corpuscular Hemoglobin 30 pg (26-34); Mean Corpuscular Volume 89 fL (80-100); Monocytes Percent Auto 10.4 % (0.0-11.0); Neutrophils Percent Auto 79.2 % (42.0-72.0); Platelet Count* 83 K/uL (140-440); RDW Coefficient of Variation % 15.6 % (11.5-15.5); Red Blood Count 3.98 m/uL (4.30-5.90); Slide Review Reflex No; White Blood Count* 5.12 K/uL (4.50-11.00)
[2022-11-27 10:49] LABS: INR 1.48 (0.91-1.10); Prothrombin Time 18.8 Seconds
[2022-12-11 12:00] LABS: Basophils Percent Auto 0.4 % (0.0-3.0); Eosinophils Percent Auto 1.7 % (0.0-7.0); Hematocrit 36.3 % (37.0-53.0); Hemoglobin* 11.9 gm/dL (13.5-17.5); Immature Granulocytes Pct Auto 8.5 %; Lymphocytes Percent Auto 1.1 % (20-44); Mean Corpuscular HGB Conc 33 gm/dL (32-36); Mean Corpuscular Hemoglobin 30 pg (26-34); Mean Corpuscular Volume 91 fL (80-100); Monocytes Percent Auto 3.9 % (0.0-11.0); Neutrophils Percent Auto 84.4 % (42.0-72.0); Platelet Count* 74 K/uL (140-440); Red Blood Count 3.99 m/uL (4.30-5.90); White Blood Count* 11.19 K/uL (4.50-11.00)
[2022-12-11 12:22] LABS: Slide Review Reflex Yes
[2022-12-11 12:23] LABS: Slide Review Acceptable Review (Acceptable)
[2022-12-18 11:38] LABS: Basophils Absolute Auto 0.04 K/uL (0.00-0.30); Basophils Percent Auto 0.5 % (0.0-3.0); Eosinophils Percent Auto 2.4 % (0.0-7.0); Hematocrit 36.2 % (37.0-53.0); Hemoglobin* 12.1 gm/dL (13.5-17.5); Immature Granulocytes Pct Auto 9.8 %; Lymphocytes Percent Auto 2.8 % (20-44); Mean Corpuscular HGB Conc 33 gm/dL (32-36); Mean Corpuscular Hemoglobin 30 pg (26-34); Mean Corpuscular Volume 90 fL (80-100); Monocytes Percent Auto 4.9 % (0.0-11.0); Neutrophils Percent Auto 79.6 % (42.0-72.0); Platelet Count* 76 K/uL (140-440); RDW Coefficient of Variation % 15.1 % (11.5-15.5); Red Blood Count 4.02 m/uL (4.30-5.90); White Blood Count* 8.17 K/uL (4.50-11.00)
[2022-12-18 11:43] LABS: Slide Review Reflex No
[2022-12-18 11:55] LABS: INR 1.34 (0.91-1.10); Prothrombin Time 17.4 Seconds
[2022-12-25 09:36] LABS: Eosinophils Percent Auto 5.7 % (0.0-7.0); Hematocrit 32.8 % (37.0-53.0); Lymphocytes Percent Auto 4.7 % (20-44); Mean Corpuscular HGB Conc 34 gm/dL (32-36); Mean Corpuscular Hemoglobin 31 pg (26-34); Mean Corpuscular Volume 91 fL (80-100); Monocytes Percent Auto 6.2 % (0.0-11.0); Neutrophils Percent Auto 80.4 % (42.0-72.0); Platelet Count* 67 K/uL (140-440); RDW Coefficient of Variation % 15.2 % (11.5-15.5); White Blood Count* 4.02 K/uL (4.50-11.00)
[2022-12-25 09:38] LABS: Slide Review Reflex No
[2022-12-25 09:53] LABS: INR 1.55 (0.91-1.10); Prothrombin Time 19.5 Seconds
[2023-01-10 11:43] LABS: Basophils Percent Auto 2.3 % (0.0-3.0); Eosinophils Percent Auto 19.2 % (0.0-7.0); Hematocrit 29.3 % (37.0-53.0); Immature Granulocytes Pct Auto 6.9 %; Lymphocytes Percent Auto 10.8 % (20-44); Mean Corpuscular HGB Conc 34 gm/dL (32-36); Mean Corpuscular Hemoglobin 30 pg (26-34); Mean Corpuscular Volume 89 fL (80-100); Monocytes Percent Auto 18.5 % (0.0-11.0); Neutrophils Percent Auto 42.3 % (42.0-72.0); Platelet Count* 66 K/uL (140-440); RDW Coefficient of Variation % 14.7 % (11.5-15.5); Red Blood Count 3.31 m/uL (4.30-5.90)
[2023-01-10 12:13] LABS: INR 1.65 (0.91-1.10); Prothrombin Time 20.4 Seconds
[2023-01-10 12:39] LABS: Slide Review Reflex Yes
[2023-01-10 12:40] LABS: Slide Review Acceptable Review (Acceptable)
[2023-01-15 11:15] LABS: Basophils Percent Auto 2.3 % (0.0-3.0); Eosinophils Percent Auto 20.3 % (0.0-7.0); Hemoglobin* 9.8 gm/dL (13.5-17.5); Immature Granulocytes Pct Auto 2.8 %; Lymphocytes Percent Auto 8.5 % (20-44); Mean Corpuscular HGB Conc 34 gm/dL (32-36); Mean Corpuscular Hemoglobin 30 pg (26-34); Mean Corpuscular Volume 89 fL (80-100); Monocytes Percent Auto 18.1 % (0.0-11.0); Platelet Count* 83 K/uL (140-440); RDW Coefficient of Variation % 15.3 % (11.5-15.5); Red Blood Count 3.26 m/uL (4.30-5.90)
[2023-01-15 11:23] LABS: Slide Review Reflex No; White Blood Count* 1.77 K/uL (4.50-11.00)
[2023-01-15 11:32] LABS: INR 1.12 (0.91-1.10)
[2023-01-29 11:47] LABS: Basophils Percent Auto 1.2 % (0.0-3.0); Eosinophils Percent Auto 12.9 % (0.0-7.0); Hematocrit 24.4 % (37.0-53.0); Hemoglobin* 8.1 gm/dL (13.5-17.5); Immature Granulocytes Pct Auto 4.1 %; Lymphocytes Percent Auto 11.2 % (20-44); Mean Corpuscular HGB Conc 33 gm/dL (32-36); Mean Corpuscular Hemoglobin 30 pg (26-34); Mean Corpuscular Volume 89 fL (80-100); Monocytes Percent Auto 14.1 % (0.0-11.0); Neutrophils Percent Auto 56.5 % (42.0-72.0); Platelet Count* 84 K/uL (140-440); Red Blood Count 2.73 m/uL (4.30-5.90)
[2023-01-29 12:01] LABS: INR 1.08 (0.91-1.10); Prothrombin Time 14.6 Seconds
[2023-01-29 12:11] LABS: Slide Review Reflex No
[2023-02-05 11:44] LABS: Basophils Percent Auto 2.2 % (0.0-3.0); Eosinophils Percent Auto 14.4 % (0.0-7.0); Hematocrit 26.6 % (37.0-53.0); Hemoglobin* 8.7 gm/dL (13.5-17.5); Immature Granulocytes Pct Auto 6.1 %; Lymphocytes Percent Auto 15.6 % (20-44); Mean Corpuscular HGB Conc 33 gm/dL (32-36); Mean Corpuscular Hemoglobin 28 pg (26-34); Mean Corpuscular Volume 86 fL (80-100); Monocytes Percent Auto 12.8 % (0.0-11.0); Neutrophils Percent Auto 48.9 % (42.0-72.0); Platelet Count* 106 K/uL (140-440); RDW Coefficient of Variation % 14.1 % (11.5-15.5); Red Blood Count 3.08 m/uL (4.30-5.90)
[2023-02-05 11:58] LABS: Slide Review Reflex Yes
[2023-02-05 12:04] LABS: INR 1.07 (0.91-1.10); Prothrombin Time 14.5 Seconds; Slide Review Acceptable Review (Acceptable)
[2023-02-12 11:43] LABS: Basophils Percent Auto 2.8 % (0.0-3.0); Eosinophils Percent Auto 16.9 % (0.0-7.0); Hemoglobin* 8.6 gm/dL (13.5-17.5); Immature Granulocytes Pct Auto 1.4 %; Lymphocytes Percent Auto 11.3 % (20-44); Mean Corpuscular HGB Conc 32 gm/dL (32-36); Mean Corpuscular Hemoglobin 27 pg (26-34); Mean Corpuscular Volume 85 fL (80-100); Monocytes Percent Auto 15.5 % (0.0-11.0); Neutrophils Percent Auto 52.1 % (42.0-72.0); Platelet Count* 83 K/uL (140-440); RDW Coefficient of Variation % 13.5 % (11.5-15.5); Red Blood Count 3.17 m/uL (4.30-5.90)
[2023-02-12 12:00] LABS: INR 1.12 (0.91-1.10); Prothrombin Time 15.1 Seconds
[2023-02-12 12:27] LABS: Slide Review Reflex Yes; White Blood Count* 1.42 K/uL (4.50-11.00)
[2023-02-12 12:29] LABS: Slide Review Acceptable Review (Acceptable)
[2023-02-19 11:44] LABS: Basophils Percent Auto 1.8 % (0.0-3.0); Eosinophils Percent Auto 17.1 % (0.0-7.0); Hematocrit 28.5 % (37.0-53.0); Immature Granulocytes Pct Auto 6.7 %; Lymphocytes Percent Auto 9.8 % (20-44); Mean Corpuscular HGB Conc 32 gm/dL (32-36); Mean Corpuscular Hemoglobin 26 pg (26-34); Mean Corpuscular Volume 83 fL (80-100); Monocytes Percent Auto 16.5 % (0.0-11.0); Neutrophils Percent Auto 48.1 % (42.0-72.0); Platelet Count* 96 K/uL (140-440); RDW Coefficient of Variation % 13.3 % (11.5-15.5); Red Blood Count 3.43 m/uL (4.30-5.90)
[2023-02-19 12:02] LABS: Prothrombin Time 14.9 Seconds
[2023-02-19 13:15] LABS: White Blood Count* 1.64 K/uL (4.50-11.00)
[2023-02-19 13:16] LABS: Slide Review Reflex No
[2023-02-26 13:29] LABS: INR 1.08 (0.91-1.10); Prothrombin Time 17.7 Seconds
[2023-02-26 14:20] LABS: Hematocrit 29.1 % (37.0-53.0); Hemoglobin* 9.2 gm/dL (13.5-17.5); Red Blood Count 3.54 m/uL (4.30-5.90)
[2023-02-26 14:21] LABS: Lymphocytes Percent Auto 7.8 % (20-44); Mean Corpuscular HGB Conc 32 gm/dL (32-36); Mean Corpuscular Hemoglobin 26 pg (26-34); Mean Corpuscular Volume 82 fL (80-100); Monocytes Percent Auto 18.2 % (0.0-11.0); Neutrophils Percent Auto 44.2 % (42.0-72.0); Platelet Count* 94 K/uL (140-440); RDW Coefficient of Variation % 13.5 % (11.5-15.5)
[2023-02-26 14:22] LABS: Basophils Percent Auto 1.9 % (0.0-3.0); Eosinophils Percent Auto 16.9 % (0.0-7.0); Slide Review Reflex Yes
[2023-02-26 14:23] LABS: White Blood Count* 1.54 K/uL (4.50-11.00)
[2023-02-26 14:25] LABS: Slide Review Acceptable Review (Acceptable)
[2023-03-05 11:40] LABS: Basophils Percent Auto 2.3 % (0.0-3.0); Eosinophils Percent Auto 18.1 % (0.0-7.0); Hematocrit 31.5 % (37.0-53.0); Immature Granulocytes Pct Auto 11.7 %; Lymphocytes Percent Auto 7.6 % (20-44); Mean Corpuscular HGB Conc 32 gm/dL (32-36); Mean Corpuscular Hemoglobin 25 pg (26-34); Mean Corpuscular Volume 79 fL (80-100); Monocytes Percent Auto 15.8 % (0.0-11.0); Neutrophils Percent Auto 44.5 % (42.0-72.0); Platelet Count* 122 K/uL (140-440); RDW Coefficient of Variation % 13.6 % (11.5-15.5); Red Blood Count 3.97 m/uL (4.30-5.90)
[2023-03-05 12:08] LABS: INR 1.08 (0.91-1.10); Prothrombin Time 14.6 Seconds
[2023-03-05 12:31] LABS: Slide Review Reflex Yes; White Blood Count* 1.71 K/uL (4.50-11.00)
[2023-03-05 12:33] LABS: Slide Review Acceptable Review (Acceptable)
[2023-03-12 12:52] LABS: Basophils Percent Auto 1.3 % (0.0-3.0); Eosinophils Percent Auto 21.5 % (0.0-7.0); Hematocrit 29.1 % (37.0-53.0); Hemoglobin* 9.1 gm/dL (13.5-17.5); Immature Granulocytes Pct Auto 6.7 %; Lymphocytes Percent Auto 8.7 % (20-44); Mean Corpuscular HGB Conc 31 gm/dL (32-36); Mean Corpuscular Hemoglobin 25 pg (26-34); Mean Corpuscular Volume 78 fL (80-100); Monocytes Percent Auto 18.8 % (0.0-11.0); Platelet Count* 104 K/uL (140-440); RDW Coefficient of Variation % 13.6 % (11.5-15.5); Red Blood Count 3.71 m/uL (4.30-5.90)
[2023-03-12 13:08] LABS: INR 1.11 (0.91-1.10); Prothrombin Time 14.9 Seconds
[2023-03-12 13:57] LABS: Slide Review Reflex No
[2023-03-12 14:08] LABS: White Blood Count* 1.49 K/uL (4.50-11.00)
[2023-03-19 11:46] LABS: Basophils Percent Auto 2.3 % (0.0-3.0); Eosinophils Percent Auto 22.6 % (0.0-7.0); Hematocrit 30.5 % (37.0-53.0); Hemoglobin* 9.5 gm/dL (13.5-17.5); Immature Granulocytes Pct Auto 6.8 %; Lymphocytes Percent Auto 8.3 % (20-44); Mean Corpuscular HGB Conc 31 gm/dL (32-36); Mean Corpuscular Hemoglobin 24 pg (26-34); Mean Corpuscular Volume 77 fL (80-100); Platelet Count* 100 K/uL (140-440); Red Blood Count 3.95 m/uL (4.30-5.90)
[2023-03-19 12:00] LABS: Slide Review Reflex Yes; White Blood Count* 1.33 K/uL (4.50-11.00)
[2023-03-19 12:01] LABS: Slide Review Acceptable Review (Acceptable)
[2023-03-19 12:06] LABS: INR 1.05 (0.91-1.10); Prothrombin Time 14.3 Seconds
[2023-03-19 12:11] LABS: Chloride* 100 mmol/L (96-114); Potassium* 3.7 mmol/L (3.6-5.1); Sodium* 137 mmol/L (135-149)
[2023-03-19 12:14] LABS: Blood Urea Nitrogen* 25 mg/dL (7-30); Carbon Dioxide* 32 mmol/L (20-32); Creatinine* 1.6 mg/dL (0.5-1.5); Estimated Glomerular Filt Rate 44 ml/min
[2023-03-19 12:15] LABS: Anion Gap 5 mEq/L (7-15); Calcium* 9.3 mg/dL (8.4-10.6)
[2023-03-19 12:19] LABS: Glucose* 360 mg/dL (60-115)
[2023-03-26 11:39] LABS: Basophils Percent Auto 2.9 % (0.0-3.0); Hematocrit 31.6 % (37.0-53.0); Immature Granulocytes Pct Auto 5.9 %; Lymphocytes Percent Auto 8.1 % (20-44); Mean Corpuscular HGB Conc 32 gm/dL (32-36); Mean Corpuscular Hemoglobin 24 pg (26-34); Mean Corpuscular Volume 76 fL (80-100); Monocytes Percent Auto 16.2 % (0.0-11.0); Neutrophils Percent Auto 41.9 % (42.0-72.0); Platelet Count* 111 K/uL (140-440); Red Blood Count 4.18 m/uL (4.30-5.90)
[2023-03-26 11:56] LABS: INR 1.06 (0.91-1.10); Prothrombin Time 14.4 Seconds
[2023-03-26 14:34] LABS: Slide Review Reflex Yes
[2023-03-26 14:36] LABS: Slide Review Acceptable Review (Acceptable)
[2023-03-26 14:52] LABS: White Blood Count* 1.36 K/uL (4.50-11.00)
[2023-04-02 11:57] LABS: Hemoglobin A1C* 9.22 % (0-5.6)
[2023-04-02 12:06] LABS: Albumin* 3.8 g/dL (3.3-5.0); Chloride* 97 mmol/L (96-114); Potassium* 3.8 mmol/L (3.6-5.1); Sodium* 137 mmol/L (135-149)
[2023-04-02 12:08] LABS: Anion Gap 9 mEq/L (7-15); Aspartate Amino Transferase* 44 U/L (12-35); Bilirubin Total* 0.5 mg/dL (0.1-1.5); Carbon Dioxide* 31 mmol/L (20-32); Creatinine* 1.5 mg/dL (0.5-1.5); Estimated Glomerular Filt Rate 47 ml/min
[2023-04-02 12:09] LABS: Alanine Aminotransferase* 21 U/L (4-50); Alkaline Phosphatase* 154 U/L (40-150); Blood Urea Nitrogen* 19 mg/dL (7-30); Calcium* 8.8 mg/dL (8.4-10.6)
[2023-04-02 12:59] LABS: Vitamin B12* 999 pg/mL (243-894)
[2023-04-02 13:17] LABS: Glucose* 365 mg/dL (60-115)
[2023-04-02 16:30] LABS: Hemoglobin* 9.5 gm/dL (13.5-17.5); Immature Granulocytes Pct Auto 1.3 %; Mean Corpuscular HGB Conc 32 gm/dL (32-36); Mean Corpuscular Hemoglobin 24 pg (26-34); Mean Corpuscular Volume 75 fL (80-100); Monocytes Percent Auto 17.3 % (0.0-11.0); Neutrophils Percent Auto 49.4 % (42.0-72.0); Platelet Count* 106 K/uL (140-440); RDW Coefficient of Variation % 14.5 % (11.5-15.5); Red Blood Count 3.99 m/uL (4.30-5.90)
[2023-04-02 16:38] LABS: Slide Review Reflex Yes
[2023-04-02 22:15] LABS: Slide Review Acceptable Review (Acceptable)
[2023-04-09 10:22] LABS: Basophils Percent Auto 2.2 % (0.0-3.0); Eosinophils Percent Auto 26.8 % (0.0-7.0); Hematocrit 31.5 % (37.0-53.0); Hemoglobin* 9.6 gm/dL (13.5-17.5); Immature Granulocytes Pct Auto 0.7 %; Lymphocytes Percent Auto 7.2 % (20-44); Mean Corpuscular HGB Conc 31 gm/dL (32-36); Mean Corpuscular Hemoglobin 24 pg (26-34); Mean Corpuscular Volume 77 fL (80-100); Monocytes Percent Auto 18.1 % (0.0-11.0); Platelet Count* 110 K/uL (140-440); RDW Coefficient of Variation % 14.6 % (11.5-15.5); Red Blood Count 4.09 m/uL (4.30-5.90)
[2023-04-09 10:31] LABS: White Blood Count* 1.38 K/uL (4.50-11.00)
[2023-04-09 10:32] LABS: Slide Review Reflex Yes
[2023-04-09 10:38] LABS: INR 1.08 (0.91-1.10); Prothrombin Time 14.6 Seconds
[2023-04-09 10:49] LABS: Slide Review Acceptable Review (Acceptable)
[2023-04-23 12:04] LABS: Basophils Percent Auto 2.5 % (0.0-3.0); Eosinophils Percent Auto 20.8 % (0.0-7.0); Hematocrit 33.2 % (37.0-53.0); Hemoglobin* 9.9 gm/dL (13.5-17.5); Immature Granulocytes Pct Auto 0.8 %; Lymphocytes Percent Auto 5.8 % (20-44); Mean Corpuscular HGB Conc 30 gm/dL (32-36); Mean Corpuscular Hemoglobin 23 pg (26-34); Mean Corpuscular Volume 76 fL (80-100); Monocytes Percent Auto 18.3 % (0.0-11.0); Neutrophils Percent Auto 51.8 % (42.0-72.0); Platelet Count* 82 K/uL (140-440); RDW Coefficient of Variation % 15.4 % (11.5-15.5); Red Blood Count 4.38 m/uL (4.30-5.90)
[2023-04-23 12:19] LABS: INR 1.03 (0.91-1.10); Prothrombin Time 14.1 Seconds
[2023-04-23 13:07] LABS: Slide Review Reflex Yes
[2023-04-23 13:08] LABS: Slide Review Acceptable Review (Acceptable)
[2023-04-30 10:08] LABS: Eosinophils Percent Auto 12.6 % (0.0-7.0); Hematocrit 33.3 % (37.0-53.0); Hemoglobin* 9.9 gm/dL (13.5-17.5); Lymphocytes Percent Auto 4.5 % (20-44); Mean Corpuscular HGB Conc 30 gm/dL (32-36); Mean Corpuscular Hemoglobin 23 pg (26-34); Mean Corpuscular Volume 76 fL (80-100); Monocytes Percent Auto 13.6 % (0.0-11.0); Neutrophils Percent Auto 60.3 % (42.0-72.0); Platelet Count* 128 K/uL (140-440); RDW Coefficient of Variation % 16.2 % (11.5-15.5); Red Blood Count 4.38 m/uL (4.30-5.90)
[2023-04-30 10:11] LABS: White Blood Count* 1.99 K/uL (4.50-11.00)
[2023-04-30 10:12] LABS: Slide Review Reflex Yes
[2023-04-30 10:16] LABS: Slide Review Acceptable Review (Acceptable)
[2023-04-30 10:23] LABS: INR 1.09 (0.91-1.10); Prothrombin Time 14.8 Seconds
[2023-05-07 11:51] LABS: Basophils Percent Auto 1.8 % (0.0-3.0); Eosinophils Percent Auto 22.1 % (0.0-7.0); Hemoglobin* 10.6 gm/dL (13.5-17.5); Immature Granulocytes Pct Auto 6.2 %; Lymphocytes Percent Auto 11.5 % (20-44); Mean Corpuscular HGB Conc 30 gm/dL (32-36); Mean Corpuscular Hemoglobin 23 pg (26-34); Mean Corpuscular Volume 75 fL (80-100); Monocytes Percent Auto 15.9 % (0.0-11.0); Neutrophils Percent Auto 42.5 % (42.0-72.0); Platelet Count* 125 K/uL (140-440); RDW Coefficient of Variation % 16.6 % (11.5-15.5)
[2023-05-07 12:01] LABS: Slide Review Reflex Yes
[2023-05-07 12:05] LABS: White Blood Count* 1.13 K/uL (4.50-11.00)
[2023-05-07 12:08] LABS: INR 1.01 (0.91-1.10)
[2023-05-07 13:06] LABS: Slide Review Acceptable Review (Acceptable)
[2023-05-21 12:39] LABS: Basophils Percent Auto 1.2 % (0.0-3.0); Eosinophils Percent Auto 16.7 % (0.0-7.0); Hematocrit 33.1 % (37.0-53.0); Hemoglobin* 10.4 gm/dL (13.5-17.5); Immature Granulocytes Pct Auto 2.5 %; Lymphocytes Percent Auto 6.8 % (20-44); Mean Corpuscular HGB Conc 31 gm/dL (32-36); Mean Corpuscular Hemoglobin 24 pg (26-34); Mean Corpuscular Volume 76 fL (80-100); Monocytes Percent Auto 14.8 % (0.0-11.0); Platelet Count* 84 K/uL (140-440); RDW Coefficient of Variation % 19.2 % (11.5-15.5); Red Blood Count 4.38 m/uL (4.30-5.90)
[2023-05-21 12:45] LABS: White Blood Count* 1.62 K/uL (4.50-11.00)
[2023-05-21 12:46] LABS: Slide Review Reflex No
[2023-05-21 12:51] LABS: INR 1.01 (0.91-1.10); Prothrombin Time 13.9 Seconds
[2023-06-04 11:35] LABS: Basophils Percent Auto 1.4 % (0.0-3.0); Eosinophils Percent Auto 19.6 % (0.0-7.0); Hematocrit 33.8 % (37.0-53.0); Hemoglobin* 10.6 gm/dL (13.5-17.5); Immature Granulocytes Pct Auto 0.7 %; Lymphocytes Percent Auto 8.8 % (20-44); Mean Corpuscular HGB Conc 31 gm/dL (32-36); Mean Corpuscular Hemoglobin 24 pg (26-34); Mean Corpuscular Volume 76 fL (80-100); Monocytes Percent Auto 10.1 % (0.0-11.0); Neutrophils Percent Auto 59.4 % (42.0-72.0); Platelet Count* 152 K/uL (140-440); RDW Coefficient of Variation % 19.2 % (11.5-15.5); Red Blood Count 4.44 m/uL (4.30-5.90)
[2023-06-04 11:50] LABS: INR 1.05 (0.91-1.10); Prothrombin Time 14.3 Seconds
[2023-06-04 12:07] LABS: Slide Review Reflex No; White Blood Count* 1.48 K/uL (4.50-11.00)
[2023-06-11 11:54] LABS: Basophils Percent Auto 2.1 % (0.0-3.0); Eosinophils Percent Auto 14.6 % (0.0-7.0); Hematocrit 36.9 % (37.0-53.0); Hemoglobin* 11.6 gm/dL (13.5-17.5); Immature Granulocytes Pct Auto 2.6 %; Lymphocytes Percent Auto 7.3 % (20-44); Mean Corpuscular HGB Conc 31 gm/dL (32-36); Mean Corpuscular Hemoglobin 25 pg (26-34); Mean Corpuscular Volume 78 fL (80-100); Neutrophils Percent Auto 61.4 % (42.0-72.0); Platelet Count* 118 K/uL (140-440); RDW Coefficient of Variation % 20.7 % (11.5-15.5); Red Blood Count 4.71 m/uL (4.30-5.90)
[2023-06-11 12:12] LABS: INR 0.98 (0.91-1.10); Prothrombin Time 13.6 Seconds
[2023-06-11 12:23] LABS: Slide Review Reflex Yes
[2023-06-11 13:14] LABS: White Blood Count* 1.92 K/uL (4.50-11.00)
[2023-06-11 14:22] LABS: Slide Review Acceptable Review (Acceptable)
[2023-06-18 11:21] LABS: Basophils Percent Auto 1.9 % (0.0-3.0); Eosinophils Percent Auto 19.6 % (0.0-7.0); Hematocrit 32.9 % (37.0-53.0); Hemoglobin* 10.5 gm/dL (13.5-17.5); Immature Granulocytes Pct Auto 0.6 %; Lymphocytes Percent Auto 10.1 % (20-44); Mean Corpuscular HGB Conc 32 gm/dL (32-36); Mean Corpuscular Hemoglobin 25 pg (26-34); Mean Corpuscular Volume 80 fL (80-100); Neutrophils Percent Auto 48.8 % (42.0-72.0); Platelet Count* 75 K/uL (140-440); RDW Coefficient of Variation % 21.1 % (11.5-15.5); Red Blood Count 4.13 m/uL (4.30-5.90)
[2023-06-18 11:36] LABS: Slide Review Reflex Yes; White Blood Count* 1.58 K/uL (4.50-11.00)
[2023-06-18 11:37] LABS: Slide Review Acceptable Review (Acceptable)
[2023-06-18 11:47] LABS: INR 1.07 (0.91-1.10); Prothrombin Time 14.5 Seconds
[2023-06-26 13:32] LABS: INR 1.02 (0.91-1.10)
[2023-06-26 13:40] LABS: Basophils Percent Auto 2.5 % (0.0-3.0); Eosinophils Percent Auto 25.1 % (0.0-7.0); Hematocrit 34.2 % (37.0-53.0); Hemoglobin* 10.9 gm/dL (13.5-17.5); Immature Granulocytes Pct Auto 6.5 %; Lymphocytes Percent Auto 5.5 % (20-44); Mean Corpuscular HGB Conc 32 gm/dL (32-36); Mean Corpuscular Hemoglobin 26 pg (26-34); Mean Corpuscular Volume 81 fL (80-100); Monocytes Percent Auto 14.1 % (0.0-11.0); Neutrophils Percent Auto 46.3 % (42.0-72.0); Platelet Count* 92 K/uL (140-440); Red Blood Count 4.25 m/uL (4.30-5.90)
[2023-06-26 16:39] LABS: Slide Review Reflex No
[2023-06-26 16:40] LABS: White Blood Count* 1.99 K/uL (4.50-11.00)
== END 2024-06-03 16:36 | disposition home or self-care (01) ==
LOC: LAB 11:59
PROVIDERS: PCP Family Medicine; Visit Provider Internal Medicine Hematology
DX: D69.6 Thrombocytopenia, unspecified (principal); I48.11 Longstanding persistent atrial fibrillation; C82.18 Follicular lymphoma grade II, lymph nodes of multiple sites
CPT/HCPCS: 36415; 80048; 80053; 80061; 82043; 82570; 82607; 83036; 84153; 84270; 84402; 84403; 84443; 84550; 85025; 85610

== ENCOUNTER 2023-06-29 04:37 | Outpatient (CLI) | payer MEDICARE, OTHER, SELFPAY | END 2023-06-29 04:38 | disposition home or self-care (01) | LOC: AMB 07-03 09:29 | PROVIDERS: PCP Family Medicine; Visit Provider Family Medicine | DX: R11.2 Nausea with vomiting, unspecified (principal); R53.1 Weakness | CPT/HCPCS: A0425; A0427; A0434 ==

== ENCOUNTER 2023-06-29 05:29 | Inpatient (IN) | payer MEDICARE, OTHER, SELFPAY ==
[2023-06-29] VITALS (30 sets, daily range): BP systolic 87–152; BP diastolic 52–82; PULSE 88–155; RESP 18–40; TEMP 36.6–41.5; O2SAT 92–97; BMI 28.5; BMI 31.2
[2023-06-29] MEDS: 0.9 % SODIUM CHLORIDE 500 ML 500 ML 1000 ML IV (05:50)
[2023-06-29] MEDS: ONDANSETRON 2 MG/ML inj 4 MG IVP (06:03)
[2023-06-29 06:04] LABS: Eosinophils Percent Auto 8.2 % (0.0-7.0); Hematocrit 39.3 % (37.0-53.0); Hemoglobin* 12.6 gm/dL (13.5-17.5); Immature Granulocytes Pct Auto 19.2 %; Lymphocytes Percent Auto 1.6 % (20-44); Mean Corpuscular HGB Conc 32 gm/dL (32-36); Mean Corpuscular Hemoglobin 26 pg (26-34); Mean Corpuscular Volume 81 fL (80-100); Monocytes Percent Auto 4.4 % (0.0-11.0); Neutrophils Percent Auto 66.6 % (42.0-72.0); Platelet Count* 87 K/uL (140-440); RDW Coefficient of Variation % 21.2 % (11.5-15.5); Red Blood Count 4.84 m/uL (4.30-5.90)
[2023-06-29 06:10] LABS: White Blood Count* 1.82 K/uL (4.50-11.00)
--- NOTE | 2023-06-29 06:14 | ED.NURSE ---
pt 86-89% room air, 1L nc applied, raised to 92%
[2023-06-29 06:16] LABS: Slide Review Reflex Yes
[2023-06-29 06:18] LABS: Chloride* 100 mmol/L (96-114); Potassium* 4.4 mmol/L (3.6-5.1); Sodium* 138 mmol/L (135-149)
[2023-06-29 06:19] LABS: Albumin* 4.6 g/dL (3.3-5.0)
[2023-06-29 06:21] LABS: Anion Gap 11 mEq/L (7-15); Carbon Dioxide* 27 mmol/L (20-32); Creatinine* 1.6 mg/dL (0.5-1.5); Est. Creatinine Clearance* 41.76; Estimated Glomerular Filt Rate 44 ml/min
[2023-06-29 06:22] LABS: Alanine Aminotransferase* 30 U/L (4-50); Alkaline Phosphatase* 168 U/L (40-150); Aspartate Amino Transferase* 39 U/L (12-35); Bilirubin Direct* 0.6 mg/dL (0.0-0.5); Bilirubin Total* 1.5 mg/dL (0.1-1.5); Blood Urea Nitrogen* 26 mg/dL (7-30); Calcium* 9.6 mg/dL (8.4-10.6); Glucose* 295 mg/dL (60-115); Total Protein* 7.1 g/dL (6.0-8.3)
--- NOTE | 2023-06-29 06:36 | ED.NURSE ---
updated MD Thacker on pt HR increase.
[2023-06-29 06:40] LABS: PCR FLU A Negative PCR FLU A (Negative); PCR FLU B Negative PCR FLU B (Negative); PCR RSV Negative PCR RSV (Negative)
[2023-06-29 06:42] LABS: SARS PCR* Negative SARS-CoV-2 (Negative)
--- NOTE | 2023-06-29 07:10 | CRLHL7_ITS ---
For Patients: As a result of the Cures Act, medical imaging exams and procedure reports are released immediately into your electronic medical record. You may view this report before your referring provider. If you have questions, please contact your health care provider. INDICATION: Cough COMPARISON: May 22, 2023 TECHNIQUE: Two views of the chest were acquired FINDINGS: TUBES AND LINES: None. HEART AND MEDIASTINUM: Enlarged heart. LUNGS AND PLEURAL SPACES: Patchy multifocal opacities bilaterally. This is moderate, diffuse and roughly symmetric.No pleural effusion or pneumothorax. Imaging features could represent a diffuse inflammatory process or edema OSSEOUS STRUCTURES: Demineralization and degenerative change IMPRESSION: Moderate diffuse bilateral airspace process new since the prior study. Primary differential considerations are edema versus a diffuse inflammatory process. Dictated by Derek Sanchez MD @ 06/29/2023 8:19:25 AM (Electronically Signed)
[2023-06-29 07:25] LABS: Lab Add On Test New Spec Needed
[2023-06-29 07:27] LABS: Lactate* 3.1 mmol/L (0.5-1.9)
--- NOTE | 2023-06-29 07:48 | CRLHL7_ITS ---
For Patients: As a result of the Century Cures Act, medical imaging exams and procedure reports are released immediately into your electronic medical record. You may view this report before your referring provider. If you have questions, please contact your health care provider. INDICATION: Cough. Vomiting. History of lumbar fusion, discectomy and hernia repair. COMPARISON: A chest CT dated May 25, 2023 and abdomen and pelvis CTs dating back to March 21, 2019 TECHNIQUE: CT examination of the chest, abdomen and pelvis was performed following the uneventful intravenous administration of 103 cc of Isovue 370. Thin section axial images were obtained from the thoracic inlet through the pubic symphysis. Oral contrast was not administered. Sagittal and coronal reformatted imaging was performed Please note that all CT scans at this facility use dose modulation, iterative reconstruction, and/or weight-based dosing when appropriate to reduce radiation dose to as low as reasonably achievable. FINDINGS: CHEST: The heart is mildly enlarged. There is no mediastinal or hilar adenopathy or mass. No significant pericardial effusion. There are atherosclerotic vascular calcifications. Small hiatal hernia. Right lung and right pleural space normal other than trace basilar atelectasis. Left side shows basilar atelectasis and a moderate-sized left effusion. The basilar atelectasis and effusion have minimally worsened since the prior study LIVER/BILIARY SYSTEM:The liver is normal in size and configuration. There is no focal mass and there is no intra- or extra hepatic biliary ductal dilatation.There is layering sludge and stones within the gallbladder. No definite indication of acute cholecystitis though this area is limited by motion artifact ADRENALS: Normal KIDNEYS, URETERS and BLADDER:Normal size kidneys. No obstructive uropathy. Bilateral benign-appearing renal lesions. The bladder is poorly visualized due to streak artifact from left hip orthopedic hardware SPLEEN:Re-demonstration of a splenic hilar lesion probably a hemangioma. This was present previously and measures approximately 2.3 centimeters. PANCREAS: Appears normal. RETROPERITONEUM and MESENTERY: Atherosclerotic vascular calcifications. No lymphadenopathy. There is an irregular masslike opacity deep in the mesentery in the right lower quadrant best seen on series 2, image number 209. This pattern has been associated with carcinoid tumor. GASTROINTESTINAL SYSTEM: There is no evidence of diverticulitis, colitis, mechanical obstruction, or appendicitis. The small bowel as visualized appears normal.Fecal retention. Diverticulosis PELVIS: Poorly evaluated due to streak artifact from a left hip arthroplasty. OSSEOUS STRUCTURES and ABDOMINAL WALL: Bilateral inguinal hernias, primarily fat containing. Postoperative changes of the abdominal wall. Extensive degenerative changes of the thoracic and lumbar spine. Postsurgical changes of the lumbar spine. Postsurgical changes of the left hip. No definite acute osseous abnormality. OTHER: No free fluid or free air. IMPRESSION: 1. CHEST: Basilar atelectasis and moderate-sized left effusion. The atelectasis and left effusion have somewhat worsened since 05/25/2023. 2. ABDOMEN AND PELVIS: There is sludge or stones within the gallbladder. No evidence of acute cholecystitis. Benign-appearing renal lesions. Unchanged splenic hilar mass probably a hemangioma. A masslike opacity is noted with irregular margins deep within the mesentery. This could be due to fibrosis. This pattern has also been associated with carcinoid tumor. Follow-up evaluation is recommended 3. OSSEOUS STRUCTURES: Significant diffuse degenerative change. Postsurgical changes of the lumbar spine and left hip. No acute appearing finding. No acute abdominal wall abnormality Please note that all CT scans at this facility use dose modulation, iterative reconstruction, and/or weight-based dosing when appropriate to reduce radiation dose to as low as reasonably achievable. Dictated by Derek Sanchez MD @ 06/29/2023 8:49:44 AM (Electronically Signed)
[2023-06-29 07:51] LABS: Slide Review Acceptable Review (Acceptable)
--- NOTE | 2023-06-29 08:18 | ED.NURSE ---
Given report to Hyacinth Abdul on M/S for admission to room 256 via cart. Patient had the CT of chest already and able to bring to the floor.
--- NOTE | 2023-06-29 09:02 | CRLHL7_ITS ---
For Patients: As a result of the Century Cures Act, medical imaging exams and procedure reports are released immediately into your electronic medical record. You may view this report before your referring provider. If you have questions, please contact your health care provider. Indication: Abdominal pain Technique: Sonography of the abdomen was performed limited to the structures discussed below Comparison: A CT dated June 29, 2023 Findings: The liver is of abnormal echotexture. This pattern is most consistent with fatty infiltration. No focal mass and no intrahepatic biliary ductal dilation. The gallbladder contains multiple stones. Wall thickness is normal at 2 millimeters. No pericholecystic fluid. No sonographic Sanches`s sign. The common duct measures 4 millimeters which is normal The right kidney was normal in size measuring 12.0 x 5.3 x 6.1 centimeters. Multiple cysts were noted. The aorta as visualized appeared normal. The pancreas is only partially visualized but appear normal. Impression: 1. Hepatic steatosis. 2. Cholelithiasis without evidence of acute cholecystitis or common duct obstruction. Dictated by Derek Sanchez MD @ 06/29/2023 10:30:22 AM (Electronically Signed)
--- NOTE | 2023-06-29 09:32 | CRLHL7_ITS ---
For Patients: As a result of the Century Cures Act, medical imaging exams and procedure reports are released immediately into your electronic medical record. You may view this report before your referring provider. If you have questions, please contact your health care provider. INDICATION: Altered mental status. TECHNIQUE: Head CT without contrast. COMPARISON: None. FINDINGS: Beam hardening artifact predominantly at the level of skullbase degrades fine detail evaluation. Streak artifact from patient`s dental amalgam degrades fine detail evaluation at these levels. Periventricular areas of low attenuation, likely due to chronic small vessel ischemic changes. Generalized volume loss. Atherosclerosis. No intracranial hemorrhage. No discrete mass or mass effect. There is no midline shift. The basilar cisterns are patent. No hydrocephalus. The washburn-white matter interface is otherwise preserved. No acute osseous abnormality. No extracalvarial soft tissue abnormality. The mastoid air cells are clear. The paranasal sinuses are well-aerated. The visualized portions of the orbits and globes are unremarkable. IMPRESSION: No acute intracranial process per unenhanced head CT. Please note that all CT scans at this facility use dose modulation, iterative reconstruction, and/or weight-based dosing when appropriate to reduce radiation dose to as low as reasonably achievable. Dictated by Ernst Perez MD @ 06/29/2023 12:37:35 PM (Electronically Signed)
[2023-06-29] MEDS: LACTATED RINGERS 1000 ML 1,000 ML IV (09:37)
[2023-06-29] MEDS: METOPROLOL TARTRATE 1 MG/ML inj 5 MG IVP (09:37)
[2023-06-29] MEDS: PIPERACILLIN/TAZOBACTAM 3.375 GM in 0.9 % SODIUM CHLORIDE Mini-bag 100 ML IVPB ×3 (10:01→22:16)
[2023-06-29 10:23] LABS: Appearance Urine Clear (Clear); Bilirubin Urine Negative (Negative); Blood Urine Trace-intact (Negative); Color Urine Orange (Yellow); Glucose Urine Trace (Negative); Ketones Urine Negative (Negative); Leukocyte Esterase Urine Negative (Negative); Nitrite Urine Negative (Negative); Protein Urine Trace (Negative); Urobilinogen Urine 0.2 (0.2-1.0); pH Urine 5.5 (5.0-8.5)
[2023-06-29 10:31] LABS: Lactate* 4.1 mmol/L (0.5-1.9)
--- NOTE | 2023-06-29 10:35 | PC.NURSE ---
Lactate 4.1. MD Davis updated. Rivera catheter placed, awaiting urine and blood cultures.
[2023-06-29 10:37] LABS: D Dimer Quantitative* 1.07 ug/ml (0.00-0.50)
[2023-06-29 10:42] LABS: Magnesium* 1.5 mg/dL (1.5-2.6)
[2023-06-29 11:03] LABS: Amorphous Sediment Urine Few; Bacteria Urine Few; RBC Urine 0-2 (0-2); Squamous Epithelial Cell Urine Few (None-Few); WBC Urine 0-2 (0-5)
--- NOTE | 2023-06-29 11:49 | PC.SOCIAL ---
Addendum entered by ANGELIA Murphy 06/29/23 15:00: Discharge planning: woodworker helper heard back from Aminta at [facility] and she shared that they would have an opening for the pt next week on or Sunday. Currently there are no orders for home care and the pt still needs to be assessed by PT/OT. Social work to follow-up as needed. Original Note: Discharge planning: woodworker helper spoke with pt's daughter Garrison about discharge planning. Garrison stated that the family is interested in having home care services set-up for when her father returns home after this hospital stay. Garrison stated that she feels her father would benefit from a nurse coming to her father's home for medication management, etc. and possibly OT/PT services. woodworker helper explained that pt had doctor's orders to be evaluated by PT/OT and more would be known after those assessments on what therapies her father would benefit from. Garrison still wanted this worker to connect with [facility](families choice for home care services) about possible openings for her father next week. woodworker helper reached out to Aminta at [facility] to see what their openings looked like next week. woodworker helper explained to Aminta that the family is for sure interested in shelter care for the pt. Social work to follow-up as needed.
--- NOTE | 2023-06-29 12:48 | PM.IMHP1 ---
Hospitalist- H&P: MIRTA History of Present Illness Date Seen: 06/29/23 Chief complaint: nausea / vomiting Narrative: Noel Arriaga is a 77 year old male with follicular lymphoma, pancytopenia, cardiac amyloidosis, atrial fibrillation, coronary artery disease, TASHA, type 2 diabetes, stage 3 kidney disease admitted through the emergency department with onset of vomiting about 2:00 a.m. today. Patient seemed to be in his usual state of health yesterday according to his . He had an appointment with his primary care doctor and they discussed his chronic medical problems. He did note he had some discomfort in his shoulders and did have a electrocardiogram and troponin obtained which were unremarkable. When he went to bed he seemed fine. About 2:00 a.m. he began vomiting which woke his . Initially she noted that he had normal mental status but as he kept vomiting he seemed to get very weak and became more tired and less responsive to her. Because of this she called 911. Patient is unable to give history at this point. Can be arouse but not able to answer questions or even stay awake. He has had recent hospitalizations for cough and fever. The cause for this is uncertain. There was some question of possible Pneumocystis infection on his last hospital stay but test from that visit seemed to indicate no Pneumocystis. He is treated with nebulizer treatments which seemed to be helping quite a bit. His notes he still occasionally has a fever. His fever in the past was thought possibly due to his lymphoma. Since his last hospitalization here a month ago he has seen his social worker at [facility]. There was some concern that he may have insulin resistance because of antibodies to insulin and so there was a plan over the next few months to switch him from insulin to SGLT 2 inhibitor , Farxiga, and possibly Ozempic. That process is not yet started due to financial concerns. He was seen by his assembler wire mesh gate who had recommended a PET scan. Because his blood sugar is elevated this was canceled. He had pulmonology evaluation showing a mild restrictive pattern with FEV1 and FVC both in the 65% of predicted range. Symptomatic measures are recommended for management of his chronic cough. He had a bone marrow biopsy which was unremarkable. Conversation with Cardiology about anticoagulation versus Watchman device was discussed. Previously on warfarin he had had GI bleeding and the plan is to resume apixaban in July when it becomes more affordable for him with no insurance. If he has GI bleeding on that he may need to have a Watchman procedure. Review of Systems Narrative: Unable to obtain except from the as noted above [facility] Medical History (Updated 06/29/23 @ 13:15 by Liam Davis MD) Sepsis ?A41.9 - Sepsis, unspecified organism (ICD-10) Insomnia ?G47.00 - Insomnia, unspecified (ICD-10) Elevated troponin ?R79.89 - Other specified abnormal findings of blood chemistry (ICD-10) Immunosuppression ?D84.9 - Immunodeficiency, unspecified (ICD-10) Chronic a-fib ?I48.20 - Chronic atrial fibrillation, unspecified (ICD-10) Chronic kidney disease, stage 3b ?N18.32 - Chronic kidney disease, stage 3b (ICD-10) Hypertension (04/05/12) ?I10 - Essential (primary) hypertension (ICD-10) Pancytopenia ?D61.818 - Other pancytopenia (ICD-10) Leukopenia ?D72.819 - Decreased white blood cell count, unspecified (ICD-10) CPAP (continuous positive airway pressure) dependence ?Z99.89 - Dependence on other enabling machines and devices (ICD-10) Insulin dependent diabetes mellitus with complications Anemia ?D64.9 - Anemia, unspecified (ICD-10) Urinary incontinence ?R32 - Unspecified urinary incontinence (ICD-10) Febrile neutropenia ?D70.9 - Neutropenia, unspecified (ICD-10) ?R50.81 - Fever presenting with conditions classified elsewhere (ICD-10) Cardiac dysrhythmia, unspecified ?I49.9 - Cardiac arrhythmia, unspecified (ICD-10) GI (gastrointestinal bleed) ?K92.2 - Gastrointestinal hemorrhage, unspecified (ICD-10) Depression ?F32.A - Depression, unspecified (ICD-10) BPH (benign prostatic hyperplasia) ?N40.0 - Benign prostatic hyperplasia without lower urinary tract symptoms (ICD-10) Cardiac amyloidosis ?E85.4 - Organ-limited amyloidosis (ICD-10) ?I43 - Cardiomyopathy in diseases classified elsewhere (ICD-10) Depression ?F32.A - Depression, unspecified (ICD-10) 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 ?I24.0 - Acute coronary thrombosis not resulting in myocardial infarction (ICD-10) Pleural effusion ?J90 - Pleural effusion, not elsewhere classified (ICD-10) Pleural effusion ?J90 - Pleural effusion, not elsewhere classified (ICD-10) Lymphoma ?C85.90 - Non-Hodgkin lymphoma, unspecified, unspecified site (ICD-10) Narcolepsy ?G47.419 - Narcolepsy without cataplexy (ICD-10) Weight loss ?R63.4 - Abnormal weight loss (ICD-10) Thrombocytopenia (~08/17/15) ?D69.6 - Thrombocytopenia, unspecified (ICD-10) Serum creatinine raised ?R79.89 - Other specified abnormal findings of blood chemistry (ICD-10) Osteoarthritis of multiple joints ?M15.9 - Polyosteoarthritis, unspecified (ICD-10) Fever ?R50.9 - Fever, unspecified (ICD-10) Fatigue ?R53.83 - Other fatigue (ICD-10) Edema of lower extremity ?R60.0 - Localized edema (ICD-10) Abdominal pain ?R10.9 - Unspecified abdominal pain (ICD-10) Surgical History History of percutaneous coronary intervention ?Z98.61 - Coronary angioplasty status (ICD-10) History of lumbar fusion (09/09/12) ?Z98.1 - Arthrodesis status (ICD-10) History of discectomy (~08/2016) ?Z98.890 - Other specified postprocedural states (ICD-10) Status post total hip replacement, 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) ?Z96.642 - Presence of left artificial hip joint (ICD-10) Status post tonsillectomy and adenoidectomy ?Z90.89 - Acquired absence of other organs (ICD-10) History of umbilical hernia repair ?Z98.890 - Other specified postprocedural states (ICD-10) ?Z87.19 - Personal history of other diseases of the digestive system (ICD-10) History of nasal septoplasty ?Z98.890 - Other specified postprocedural states (ICD-10) History of carpal tunnel surgery ?Z98.890 - Other specified postprocedural states (ICD-10) Family History Father Colon cancer Lung cancer Mother Diabetes FH: thyroid cancer Kidney disease High blood pressure Social History Narrative: He lives with his . He gets his specialty medical care at [facility]. He does not smoke. He does not drink alcohol. Code status is full. What is your current living situation?: I presently have a place to live Problems where you live: no known problems Problems where you live details: N/A In the past 12 months, utilities in danger of being shut off: no In past 12 months, lack of transportation kept you from medical appts, meetings, work, or getting things needed for daily living: no In the past 12 mos, have been you worried that your food would run out before you had money to buy more?: never true In the past 12 mos, the food you bought just didn't last and you didn't have money to buy more?: never true Highest level of school completed/degree received: Bachelor's degree Smoking Status: Never smoker Do you use any of these nicotine containing products: None Second hand tobacco smoke exposure: No How often do you have a drink containing alcohol: never How often do you have six or more drinks on one occasion: Never AUDIT-C Alcohol total score: 0 Non-prescribed substance use: denies use Caffeine: No How often does anyone, including family, friends and others, physically hurt you: never How often does anyone, including family, friends and others, insult or talk down to you: never How often does anyone, including family, friends and others, threaten you with harm: never How often does anyone, including family, friends and others, scream or curse at you: never Little interest or pleasure in doing things: nearly every day Feeling down, depressed, or hopeless: nearly every day service: No Meds Home Medications and Allergies Home Medications Medication Instructions Recorded Confirmed Type acetaminophen 650 mg 1,300 mg PO BID 01/09/22 06/28/23 History tablet,extended release diclofenac sodium 1 % topical gel 2 g topical QID PRN 03/13/22 06/28/23 History (Voltaren Arthritis Pain) multivitamin (Daily Multi-Vitamin 1 tab PO DAILY 03/13/22 06/28/23 History tablet) aspirin 81 mg chewable tablet 81 mg PO DAILY 07/07/22 06/28/23 History nitroglycerin 0.4 mg sublingual 0.4 mg sublingual Q5M PRN 07/11/22 06/28/23 History tablet acyclovir 400 mg tablet 400 mg PO BID 08/15/22 06/28/23 History torsemide 20 mg tablet 20 mg PO DAILY 03/02/23 06/28/23 History escitalopram oxalate 10 mg tablet 10 mg PO DAILY 04/17/23 06/28/23 History (Lexapro) insulin glargine 100 unit/mL (3 30 unit subcut HS 04/17/23 06/28/23 History mL) subcutaneous pen pantoprazole 40 mg tablet,delayed 40 mg PO BID 04/17/23 06/28/23 History release apixaban 5 mg tablet 5 mg PO BID 06/19/23 06/28/23 History dapagliflozin propanediol 10 mg 10 mg PO QDAY 06/19/23 06/28/23 History tablet semaglutide 0.25 mg or 0.5 mg (2 0.25 mg subcut QWEEK 06/19/23 06/28/23 History mg/3 mL) subcutaneous pen injector sodium chloride 3 % for ml inhalation 06/21/23 06/28/23 History nebulization Allergies Allergy/AdvReac Type Severity Reaction Status Date / Time lovastatin Allergy Severe Throat and Verified 06/28/23 11:26 chest tightness niacin Allergy Severe Throat and Verified 06/28/23 11:26 chest tightness duloxetine Allergy Intermediate throat and Verified 06/28/23 11:26 chest tightness sertraline Allergy Intermediate Dizzy, Verified 06/28/23 11:26 headaches and not right in the head methyldopa Allergy Mild Chills, Verified 06/28/23 11:26 fever Wdtmxzo-ZYX-PeC Reductase Allergy Verified 06/28/23 11:26 Inhibitor COVID-19 (Adenovirus) Vaccine Allergy Severe Myocarditis Uncoded 06/28/23 11:26 paper tape AdvReac Severe Takes skin Uncoded 06/28/23 11:26 off Exam Narrative: Exam Narrative: On arrival to the floor he is sleeping and appears in mild respiratory distress with tachypnea. Heart rate is 150 on the monitor. Blood pressure is normal. Here arouses to voice but falls asleep right away. He is unable to answer questions in any meaningful way. He has and able to answer orientation questions. There is no obvious facial asymmetry. There is a question of a slight droop on her in his right side when he attempts to smile but this is inconsistent on repeat examination. Otherwise face appears to be symmetric. Extraocular movements are full visual weathers are intact. Pupils are equal round reactive to light. Oropharynx with very dry mucous membranes. Neck is supple without mass or adenopathy. Respirations are clear to auscultation except a rare basilar crackle. No wheezing. No consolidation. Cardiovascular: S1-S2 regular tachycardia. Abdomen is soft without tenderness or mass. External genitalia normal. Extremities without edema. Skin is noted for a raced patchy erythema which co LEs is over his left leg into a large patch of erythema. The surface of it is rough almost scaly there are no vesicles or ulcerations. The maculopapular rash is also present to a lesser extent over his arms. Also less over his trunk. His no edema. He moves all 4 extremities well without focal weakness. He has some trouble following simple commands and cooperating with neurologic examination however. Const: Vital Signs, click to edit/add: Vital Signs - 24 hr 06/29/23 05:44 06/29/23 05:50 06/29/23 06:02 Temperature 99.2 F Pulse Rate 99 Pulse Rate [Left R adial] Pulse Rate [Right Pulse Oximeter] 90 Respiratory Rate 22 20 Blood Pressure 152/73 H Blood Pressure [Le ft Arm] Blood Pressure [Ri ght Upper Arm] 152/74 H Pulse Oximetry 94 92 93 Oxygen Delivery Me thod Room Air Oxygen Flow Rate 06/29/23 06:32 06/29/23 06:35 06/29/23 06:36 Temperature Pulse Rate 140 H Pulse Rate [Left R adial] Pulse Rate [Right Pulse Oximeter] 140 H Respiratory Rate 18 Blood Pressure 132/74 Blood Pressure [Le ft Arm] Blood Pressure [Ri ght Upper Arm] 132/74 Pulse Oximetry 96 96 96 Oxygen Delivery Me thod Nasal Cannula Nasal Cannula Oxygen Flow Rate 1 1 06/29/23 06:37 06/29/23 07:02 06/29/23 07:07 Temperature Pulse Rate 140 H 155 H Pulse Rate [Left R adial] Pulse Rate [Right Pulse Oximeter] Respiratory Rate Blood Pressure 133/80 Blood Pressure [Le ft Arm] Blood Pressure [Ri ght Upper Arm] Pulse Oximetry 96 95 Oxygen Delivery Me thod Oxygen Flow Rate 06/29/23 07:30 06/29/23 07:32 06/29/23 08:40 Temperature 97.9 F Pulse Rate 152 H 151 H Pulse Rate [Left R adial] 98 Pulse Rate [Right Pulse Oximeter] Respiratory Rate 22 Blood Pressure 117/69 Blood Pressure [Le ft Arm] 138/63 Blood Pressure [Ri ght Upper Arm] Pulse Oximetry 97 96 96 Oxygen Delivery Me thod Nasal Cannula Oxygen Flow Rate 1 06/29/23 12:18 Temperature 98.1 F Pulse Rate Pulse Rate [Left R adial] 88 Pulse Rate [Right Pulse Oximeter] Respiratory Rate 24 Blood Pressure Blood Pressure [Le ft Arm] 100/55 L Blood Pressure [Ri ght Upper Arm] Pulse Oximetry 97 Oxygen Delivery Me thod Nasal Cannula Oxygen Flow Rate 1 Documenting provider has reviewed patient's vital signs: yes Hospitalist - H&P: Result Labs Labs: Short CBC 06/29/23 Range/Units 06:00 WBC 1.82 L* (4.50-11.00) K/uL Hgb 12.6 L (13.5-17.5) gm/dL Hct 39.3 (37.0-53.0) % Plt Count 87 L (140-440) K/uL BMP 06/29/23 06:00 Sodium 138 Potassium 4.4 Chloride 100 Carbon Dioxide 27 BUN 26 Creatinine 1.6 H Glucose 295 H Calcium 9.6 Cardiac Enzymes 06/29/23 Range/Units 06:00 Troponin I 0.10 H* (0.01-0.04) ng/mL Liver Function 06/29/23 Range/Units 06:00 Total Bilirubin 1.5 (0.1-1.5) mg/dL Direct Bilirubin 0.6 H (0.0-0.5) mg/dL AST 39 H (12-35) U/L ALT 30 (4-50) U/L Alkaline Phosphatase 168 H (40-150) U/L Albumin 4.6 (3.3-5.0) g/dL Urine 06/29/23 Range/Units 10:01 Urine Color [place] A (Yellow) Urine Appearance Clear (Clear) Urine pH 5.5 (5.0-8.5) Ur Specific [place] 1.010 (1.000-1.030) Urine Protein Trace A (Negative) Urine Glucose (UA) Trace A (Negative) Imaging CT Chest/Ab/Pelvis: Radiologist's impression: INDICATION: Cough. Vomiting. History of lumbar fusion, discectomy and hernia repair. COMPARISON: A chest CT dated May 25, 2023 and abdomen and pelvis CTs dating back to March 21, 2019 TECHNIQUE: CT examination of the chest, abdomen and pelvis was performed following the uneventful intravenous administration of 103 cc of Isovue 370. Thin section axial images were obtained from the thoracic inlet through the pubic symphysis. Oral contrast was not administered. Sagittal and coronal reformatted imaging was performed Please note that all CT scans at this facility use dose modulation, iterative reconstruction, and/or weight-based dosing when appropriate to reduce radiation dose to as low as reasonably achievable. FINDINGS: CHEST: The heart is mildly enlarged. There is no mediastinal or hilar adenopathy or mass. No significant pericardial effusion. There are atherosclerotic vascular calcifications. Small hiatal hernia. Right lung and right pleural space normal other than trace basilar atelectasis. Left side shows basilar atelectasis and a moderate-sized left effusion. The basilar atelectasis and effusion have minimally worsened since the prior study LIVER/BILIARY SYSTEM:The liver is normal in size and configuration. There is no focal mass and there is no intra- or extra hepatic biliary ductal dilatation.There is layering sludge and stones within the gallbladder. No definite indication of acute cholecystitis though this area is limited by motion artifact ADRENALS: Normal KIDNEYS, URETERS and BLADDER:Normal size kidneys. No obstructive uropathy. Bilateral benign-appearing renal lesions. The bladder is poorly visualized due to streak artifact from left hip orthopedic hardware SPLEEN:Re-demonstration of a splenic hilar lesion probably a hemangioma. This was present previously and measures approximately 2.3 centimeters. PANCREAS: Appears normal. RETROPERITONEUM and MESENTERY: Atherosclerotic vascular calcifications. No lymphadenopathy. There is an irregular masslike opacity deep in the mesentery in the right lower quadrant best seen on series 2, image number 209. This pattern has been associated with carcinoid tumor. GASTROINTESTINAL SYSTEM: There is no evidence of diverticulitis, colitis, mechanical obstruction, or appendicitis. The small bowel as visualized appears normal.Fecal retention. Diverticulosis PELVIS: Poorly evaluated due to streak artifact from a left hip arthroplasty. OSSEOUS STRUCTURES and ABDOMINAL WALL: Bilateral inguinal hernias, primarily fat containing. Postoperative changes of the abdominal wall. Extensive degenerative changes of the thoracic and lumbar spine. Postsurgical changes of the lumbar spine. Postsurgical changes of the left hip. No definite acute osseous abnormality. OTHER: No free fluid or free air. IMPRESSION: 1. CHEST: Basilar atelectasis and moderate-sized left effusion. The atelectasis and left effusion have somewhat worsened since 05/25/2023. 2. ABDOMEN AND PELVIS: There is sludge or stones within the gallbladder. No evidence of acute cholecystitis. Benign-appearing renal lesions. Unchanged splenic hilar mass probably a hemangioma. A masslike opacity is noted with irregular margins deep within the mesentery. This could be due to fibrosis. This pattern has also been associated with carcinoid tumor. Follow-up evaluation is recommended 3. OSSEOUS STRUCTURES: Significant diffuse degenerative change. Postsurgical changes of the lumbar spine and left hip. No acute appearing finding. No acute abdominal wall abnormality CT scan - head: Radiologist's impression: INDICATION: Altered mental status. TECHNIQUE: Head CT without contrast. COMPARISON: None. FINDINGS: Beam hardening artifact predominantly at the level of skullbase degrades fine detail evaluation. Streak artifact from patient`s dental amalgam degrades fine detail evaluation at these levels. Periventricular areas of low attenuation, likely due to chronic small vessel ischemic changes. Generalized volume loss. Atherosclerosis. No intracranial hemorrhage. No discrete mass or mass effect. There is no midline shift. The basilar cisterns are patent. No hydrocephalus. The washburn-white matter interface is otherwise preserved. No acute osseous abnormality. No extracalvarial soft tissue abnormality. The mastoid air cells are clear. The paranasal sinuses are well-aerated. The visualized portions of the orbits and globes are unremarkable. IMPRESSION: No acute intracranial process per unenhanced head CT. US - abdomen: Radiologist's impression: Indication: Abdominal pain Technique: Sonography of the abdomen was performed limited to the structures discussed below Comparison: A CT dated June 29, 2023 Findings: The liver is of abnormal echotexture. This pattern is most consistent with fatty infiltration. No focal mass and no intrahepatic biliary ductal dilation. The gallbladder contains multiple stones. Wall thickness is normal at 2 millimeters. No pericholecystic fluid. No sonographic Sanches`s sign. The common duct measures 4 millimeters which is normal The right kidney was normal in size measuring 12.0 x 5.3 x 6.1 centimeters. Multiple cysts were noted. The aorta as visualized appeared normal. The pancreas is only partially visualized but appear normal. Impression: 1. Hepatic steatosis. 2. Cholelithiasis without evidence of acute cholecystitis or common duct obstruction. Assessment and Plan Assessment and plan (1) Sepsis: Problem comment: 77-year-old male appearing very ill with findings consistent with sepsis including altered mental status, elevated lactate, tachycardia, hypotension. Source of sepsis is unclear. Continue to evaluate and monitor. Broad-spectrum antibiotics with Zosyn and vancomycin pending clinical course and cultures Status: Acute (2) Vomiting: Problem comment: Initial symptom noted by his . Not continuing to have vomiting now. Abdominal exam and CT scan and ultrasound of the abdomen are reassuring. Does have gallstones/sludge without cholecystitis. As he wakes up will monitor for signs of biliary disease Status: Acute (3) Weakness: Problem comment: Profound weakness associated with onset of vomiting and signs and symptoms of sepsis. Likely will improve as his illness resolves Status: Acute (4) Longstanding persistent atrial fibrillation: Problem comment: AFib with RVR today. This is probably due to his illness rather than loss of rate control. Fluid resuscitation and monitor. Agree with the plan to start apixaban. Status: Acute (5) Uncontrolled type 2 diabetes mellitus: Problem comment: Continue sliding scale insulin and Basaglar. Could introduce Farxiga during this hospital stay Status: Acute (6) Elevated troponin: Problem comment: Monitor and Trend this. Not currently having chest pain or acute ischemic EKG changes. 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 Also known to have underlying coronary artery disease. Chronically elevated. Monitor for signs and symptoms of coronary disease. Status: Acute (7) Immunosuppression: Problem comment: Chronic neutropenia and lymphopenia since October of 2022 when chemotherapy for lymphoma was discontinued due to neutropenia and lymphopenia Status: Acute (8) Pancytopenia: Problem comment: Present since chemotherapy for lymphoma early 2022. Has not recovered since discontinuing chemotherapy in October 2022 Status: Acute (9) Chronic bronchitis: Problem comment: Improved with nebulizer treatments Status: Acute (10) Follicular lymphoma grade ii, lymph nodes of multiple sites: Problem comment: -treated at [facility] from July to October of 2022. Due to thrombocytopenia and neutropenia they stopped treatment at that point. His white count and platelets have not recovered. WBC 1.03 on day of discharge. Recheck following discharge. -continues to be followed by Heme-Onc at [facility], Dr. Bryson. Pending PET scan Status: Chronic (11) Pleural effusion: Problem comment: Stable, due to amyloidosis. Previously getting thoracentesis monthly. More recently has not needed regular thoracentesis Status: Acute (12) Uncontrolled type 2 diabetes mellitus: Problem comment: -most recent A1c 9.2 -continue home dose glargine 30 units q.h.s. -diabetic diet, glucose checks ACHS, insulin sliding scale- adjusting dosing as necessary Status: Acute Plan Admit to the hospital for evaluation and treatment of sepsis including evaluation for source of sepsis and control of source. Evaluation treatment of vomiting and altered mental status. Ongoing assessment of functional status. Total time spent today is 90 minutes, 60 minutes in coordination of care discussing with patient's and other providers ongoing evaluation management
[2023-06-29 13:30] LABS: Lactate* 5.3 mmol/L (0.5-1.9)
[2023-06-29] MEDS: LACTATED RINGERS 1000 ML 1,000 ML 125 ML IV ×2 (13:45→22:21)
[2023-06-29] MEDS: MAGNESIUM IV 2 GM/50 ML PIGGYBACK IVPB (13:56)
[2023-06-29 14:09] LABS: Troponin I* 0.36 ng/mL (0.01-0.04)
--- NOTE | 2023-06-29 14:21 | REH.OT ---
OT: Order received, chart reviewed, patient lethargic, having difficulty sustaining attention to participate in eval. Patient also with elevated troponins. Will reschedule eval.
--- NOTE | 2023-06-29 15:09 | PC.SOCIAL ---
Addendum entered by ANGELIA Murphy 06/29/23 16:38: Discharge planning: Garrison Arriaga's phone number is #[phone]. Social work to follow-up as needed. Original Note: Discharge planning: soap worker attempted to call pt's daughter Garrison back this afternoon to give her an update on home care services and research that was done, but had to leave a message. Garrison did state earlier when she and this worker spoke that she would like to be the main contact for discharge planning, if possible. Social work to follow-up as needed.
--- NOTE | 2023-06-29 15:38 | PM.EN ---
Chart Event Note Time Seen by Provider: 15:38 Date Seen: 06/29/23 Chart Event Note: patient is seen this afternoon for follow-up of admission for sepsis, AFib with RVR, altered mental status. His heart rate has improved. He is a little bit more alert and interactive but still quite sleepy. His reports that he will often be very sleepy during the day for prolonged periods and then arouse in be alert. His troponin and lactate both increased on afternoon labs. These reflect the severity of his acute illness. The precise acute illness is uncertain. continue to investigate for source of sepsis as well as neurologic cardiac and respiratory monitoring At this point he is clinically slightly improved despite the changes in his labs. Will recheck his labs this evening and tomorrow. continue IV fluids. Continue to closely monitor vitals. Resume feeding and home medications when he wakes up enough to eat.
--- NOTE | 2023-06-29 15:39 | PC.NURSE ---
End of shift note: Pt admitted from ED this morning due to N/V. Bowel sounds noted to be hypoactive in all four quadrants though pt reported last BM of evening of 06/28/23. No coughing noted though has been hospitalized with cough and fever recently. Pt has DM2 with blood sugars of 237 and 188 noted this shift. Blood sugar of 188 at 1330. updated though did not want SS Novolog administered to correct blood sugar of 188. Pt noted to have one small emesis this morning which was noted to be bile and undigested food. Rivera catheter placed this morning with urine sample sent to lab. He was also noted to be incontinent of urine before Rivera cath was placed. Pt has hx of A fib and heart rate was noted to be 150 this morning shortly after transferring from ED. MD Davis was updated and gave order for Metoprolol IVP which was given. Pt on 1 liter of oxygen via NC. Respirations noted be 22-24 per minute though lung sounds clear to all lobes bilaterally. ? Jenifer aware of pt?s current status. Pt currently receiving IV fluids and ABX. Staff are repositioning pt in bed at this time until he becomes more alert. ?
--- NOTE | 2023-06-29 16:06 | PC.SOCIAL ---
Discharge planning: Met with pt's to discuss discharge planning. Pt's is concerned about not having a safe discharge plan for her when he leaves the hospital. homeworker reassured her that a safe discharge plan will be established. homeworker explained what was discussed with daughter Garrison in regard to home care services(see earlier note from today) and that is was also too early for a discharge recommendation from the doctor, at this time. Pt still needs to be assessed by PT/OT, as well. Pt's understood this. homeworker explained that social workers will be back in the office on Sunday due to the holiday on Sunday. Pt's was given a business card for the social media strategist department, as well. Pt's was thankful for the information. Social work to follow-up as needed.
[2023-06-29] MEDS: ACETAMINOPHEN 650 MG SUPP PR (16:41)
--- NOTE | 2023-06-29 16:41 | CRLHL7_ITS ---
For Patients: As a result of the Century Cures Act, medical imaging exams and procedure reports are released immediately into your electronic medical record. You may view this report before your referring provider. If you have questions, please contact your health care provider. Indication: Cough. Possible aspiration. Technique: Chest 1 view. Comparison: June 29, 2023. Findings/Impression: Cardiovascular and mediastinum: Stable cardiomegaly. Normal mediastinum. Lungs and pleural space: Apparent central pulmonary vascular congestion may be exaggerated by low lung volumes. Lungs are also not well evaluated due to body habitus and a shallow depth of inspiration. No convincing evidence for pneumonia. No effusion and no pneumothorax. Bones and soft tissues: No acute findings. Dictated by Ellis Ngo MD @ 06/29/2023 6:28:58 PM (Electronically Signed)
[2023-06-29] MEDS: LACTATED RINGERS 500 ML 500 ML IV (17:06)
[2023-06-29 17:19] LABS: Lactate* 4.5 mmol/L (0.5-1.9)
[2023-06-29] MEDS: IPRAT-ALBUT 0.5-2.5 MG/3 ML NEB 1 NEB IH (17:36)
[2023-06-29] MEDS: SODIUM CHLORIDE 3% 3 NEB IH (17:39)
--- NOTE | 2023-06-29 17:53 | PC.NURSE ---
Shift note ([id number]) The pt had a temp of 104.6 degree F, Spo2 93% on 1 L NC , RR 20, Heart rate 103 bpm, bp 126/55; blanket were taken off and cool wash clothe applied to forehead; the pt appeared lethargic, flushed and able to respond a little bit and drift back to sleep. Dr Davis and DR Lovelace were notified; an order of Rectal Tylenol was received and given; and see other orders( labs, imaging and etc). Rechecked Temp for 103.7 degree f. the pt transferee to unit ( CCU3 room for intensive care ) at 1744. Report given to STAN Cavazos
[2023-06-29 19:55] LABS: WBC, CSF 3 Cells/uL
[2023-06-29 19:59] LABS: RBC, CSF 4 Cells/uL
[2023-06-29 20:01] LABS: CSF Mononuclear Cells 33 %; CSF Polynuclear Cells 67 %
[2023-06-29 20:03] LABS: Appearance CSF Clear (Clear); Color CSF Colorless (Colorless)
[2023-06-29] MEDS: LACTATED RINGERS 500 ML 500 ML 250 ML IV (20:40)
[2023-06-29 20:46] LABS: Basophils Percent Auto 0.3 % (0.0-3.0); Eosinophils Percent Auto 3.2 % (0.0-7.0); Hematocrit 38.9 % (37.0-53.0); Hemoglobin* 12.6 gm/dL (13.5-17.5); Immature Granulocytes Pct Auto 9.1 %; Lymphocytes Percent Auto 1.5 % (20-44); Mean Corpuscular HGB Conc 32 gm/dL (32-36); Mean Corpuscular Hemoglobin 27 pg (26-34); Mean Corpuscular Volume 82 fL (80-100); Monocytes Percent Auto 8.8 % (0.0-11.0); Neutrophils Percent Auto 77.1 % (42.0-72.0); Platelet Count* 80 K/uL (140-440); RDW Coefficient of Variation % 21.7 % (11.5-15.5); Red Blood Count 4.75 m/uL (4.30-5.90); White Blood Count* 3.42 K/uL (4.50-11.00)
[2023-06-29 20:49] LABS: Lactate* 5.1 mmol/L (0.5-1.9)
[2023-06-29 20:51] LABS: Slide Review Reflex No
[2023-06-29 21:05] LABS: Glucose, CSF* 103 Mg/dL (40-70); Total Protein, CSF 127 Mg/dL (15-45)
[2023-06-29 21:07] LABS: Albumin* 3.5 g/dL (3.3-5.0); Chloride* 105 mmol/L (96-114); Potassium* 3.8 mmol/L (3.6-5.1); Sodium* 140 mmol/L (135-149)
[2023-06-29 21:09] LABS: Anion Gap 14 mEq/L (7-15); Carbon Dioxide* 21 mmol/L (20-32); Creatinine* 2.1 mg/dL (0.5-1.5); Est. Creatinine Clearance* 28.99; Estimated Glomerular Filt Rate 32 ml/min
[2023-06-29 21:10] LABS: Alanine Aminotransferase* 32 U/L (4-50); Alkaline Phosphatase* 111 U/L (40-150); Aspartate Amino Transferase* 55 U/L (12-35); Bilirubin Total* 1.9 mg/dL (0.1-1.5); Blood Urea Nitrogen* 28 mg/dL (7-30); Glucose* 109 mg/dL (60-115); Total Protein* 5.9 g/dL (6.0-8.3)
[2023-06-29 21:11] LABS: Calcium* 8.7 mg/dL (8.4-10.6)
[2023-06-29 21:30] LABS: Troponin I* 0.61 ng/mL (0.01-0.04)
[2023-06-29 21:31] LABS: C Reactive Protein* 17.2 mg/dL (0.5-1.0)
[2023-06-29] MEDS: ACETAMINOPHEN INJ 1,000 MG/100 ML VIAL 400 MG IVPB (21:47)
[2023-06-29] MEDS: ENOXAPARIN 40 MG/0.4 ML INJ SUBCUT (22:16)
[2023-06-29] MEDS: FUROSEMIDE 10 MG/ML inj 20 MG IVP (22:16)
[2023-06-29] MEDS: SODIUM CHLORIDE 0.9 % (FLUSH) 10 ML SYRINGE 5 ML IVF (22:21)
--- NOTE | 2023-06-29 22:51 | P.DS_ITS ---
DS: Providers Provider Date Seen: 06/29/23 Date of admission: 06/29/23 08:23 Primary care physician: Mathew Simpson MD Admitting Clinician: Liam Davis MD Consults: 06/29/23 09:37 Consult to Occupational Therapy [CONS] Routine Comment: Reason(s) for OT Consult:: Evaluate and Treat Any Restrictions?:: No Restrictions Consult to Physical Therapy [CONS] Routine Comment: Reason(s) for PT Consult:: Evaluate and Treat Any Restrictions?:: No Restrictions Attending Physician on discharge: Stephanie Reaves [facility] Date of Discharge: 06/29/23 DS: Diagnosis Discharge Diagnosis (1) Sepsis: Status: Acute Problem details: 77-year-old male appearing very ill with findings consistent with sepsis including altered mental status, elevated lactate, tachycardia, hypotension. Source of sepsis is unclear. Continue to evaluate and monitor. Broad-spectrum antibiotics with Zosyn and vancomycin pending clinical course and cultures Patient continued to decompensate over the course of the day without appropriate response to IV antibiotics, IV fluids, resuscitative efforts. Lactate continued to trend up. Fever did not respond to rectal nor IV Tylenol. Kidney function worsening and a creatinine up trending to 2.1 from 1.6 with decreasing creatinine clearance. (2) Weakness: Status: Acute Problem details: Profound weakness associated with onset of vomiting and signs and symptoms of sepsis. Without change prior to transfer. (3) Longstanding persistent atrial fibrillation: Status: Acute Problem details: AFib with RVR today. This is probably due to his illness rather than loss of rate control. Fluid resuscitation and monitor. Heart rate low 100s prior to transfer (4) Uncontrolled type 2 diabetes mellitus: Status: Acute Problem details: Patient remained NPO during hospital stay due to decreased still status in setting of sepsis. Glucose checks ACHS (5) Elevated troponin: Status: Acute Problem details: Not currently having chest pain or acute ischemic EKG changes on admission. 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 Also known to have underlying coronary artery disease. Chronically elevated. Continue to trend upward, 0.61 (6) Immunosuppression: Status: Acute Problem details: Chronic neutropenia and lymphopenia since October of 2022 when chemotherapy for lymphoma was discontinued due to neutropenia and lymphopenia. (7) Pancytopenia: Status: Acute Problem details: Present since chemotherapy for lymphoma early 2022. Has not recovered since discontinuing chemotherapy in October 2022 (8) HILARY (acute kidney injury): Status: Acute Problem details: -in setting of sepsis unresponsive to current therapies DS: Summary Hospital Course Hospital Course: [age] year old male past medical history significant for non-Hodgkin's lymphoma, immunosuppression, pancytopenia, status post chemotherapy ending in October 2022, RLS, RBBB, diabetes mellitus type 2, dermatitis, hypertension, CKD was admitted to the medical floor then transferred to CCU for sepsis of unknown source. Course of care and details as noted above. Patient was started on Zosyn and vancomycin. Received IV fluid resuscitation. Blood culture x2 with repeat blood culture x2 during spiking fever were obtained and pending at time of transfer. Urine culture pending at time of transfer. Lumbar puncture obtained, cerebral spinal fluid Gram stain and culture pending at time of transfer. CT chest abdomen pelvis were obtained. Repeat chest x-ray obtained during spike in fever. Just prior to transfer, patient's SBP dropped to 90. Norepinephrine drip started. Patient transferred via ALS with local critical care team, 3 in the crew. Patient accepted by Dr. Sethi. Transferring to [facility], [facility]. Status at Discharge Overall status at discharge: patient is not back to baseline Time Spent with Patient Time attestation: Total time spent providing and/or coordinating discharge services: Time spent: Greater than 30 minutes Exam Narrative: Exam Narrative: PHYSICAL EXAM General: Flushed, ill Cardiovascular: Tachycardic Pulmonary: Tachypneic Neurological: Sleepy, responds to name, answers yes or no Skin: Flushed, warm Const: Vital Signs, click to edit/add: Vital Signs - 24 hr 06/29/23 05:44 06/29/23 05:50 06/29/23 06:02 Temperature 99.2 F Pulse Rate 99 Pulse Rate [Left R adial] Pulse Rate [Right Pulse Oximeter] 90 Respiratory Rate 22 20 Blood Pressure 152/73 H Blood Pressure [Le ft Arm] Blood Pressure [Ri ght Upper Arm] 152/74 H Pulse Oximetry 94 92 93 Oxygen Delivery Me thod Room Air Oxygen Flow Rate 06/29/23 06:32 06/29/23 06:35 06/29/23 06:36 Temperature Pulse Rate 140 H Pulse Rate [Left R adial] Pulse Rate [Right Pulse Oximeter] 140 H Respiratory Rate 18 Blood Pressure 132/74 Blood Pressure [Le ft Arm] Blood Pressure [Ri ght Upper Arm] 132/74 Pulse Oximetry 96 96 96 Oxygen Delivery Me thod Nasal Cannula Nasal Cannula Oxygen Flow Rate 1 1 06/29/23 06:37 06/29/23 07:02 06/29/23 07:07 Temperature Pulse Rate 140 H 155 H Pulse Rate [Left R adial] Pulse Rate [Right Pulse Oximeter] Respiratory Rate Blood Pressure 133/80 Blood Pressure [Le ft Arm] Blood Pressure [Ri ght Upper Arm] Pulse Oximetry 96 95 Oxygen Delivery Me thod Oxygen Flow Rate 06/29/23 07:30 06/29/23 07:32 06/29/23 08:40 Temperature 97.9 F Pulse Rate 152 H 151 H Pulse Rate [Left R adial] 98 Pulse Rate [Right Pulse Oximeter] Respiratory Rate 22 Blood Pressure 117/69 Blood Pressure [Le ft Arm] 138/63 Blood Pressure [Ri ght Upper Arm] Pulse Oximetry 97 96 96 Oxygen Delivery Me thod Nasal Cannula Oxygen Flow Rate 1 06/29/23 10:00 06/29/23 12:18 06/29/23 16:41 Temperature 98.1 F 104.6 F H Pulse Rate Pulse Rate [Left R adial] 88 Pulse Rate [Right Pulse Oximeter] Respiratory Rate 22 24 Blood Pressure Blood Pressure [Le ft Arm] 100/55 L Blood Pressure [Ri ght Upper Arm] Pulse Oximetry 96 97 Oxygen Delivery Me thod Nasal Cannula Nasal Cannula Oxygen Flow Rate 1 1 06/29/23 16:42 06/29/23 16:42 06/29/23 17:49 Temperature 104.6 F H 103.7 F H Pulse Rate Pulse Rate [Left R adial] 103 H 103 H 102 H Pulse Rate [Right Pulse Oximeter] Respiratory Rate 20 20 40 H Blood Pressure Blood Pressure [Le ft Arm] 126/55 L 116/55 L Blood Pressure [Ri ght Upper Arm] Pulse Oximetry 93 94 Oxygen Delivery Me thod Nasal Cannula Oxygen Flow Rate 1 1 06/29/23 17:51 06/29/23 18:30 06/29/23 21:47 Temperature 103.7 F H 103.7 F H 105.1 F H Pulse Rate Pulse Rate [Left R adial] 104 H Pulse Rate [Right Pulse Oximeter] Respiratory Rate 36 H Blood Pressure Blood Pressure [Le ft Arm] 117/56 L Blood Pressure [Ri ght Upper Arm] Pulse Oximetry 95 Oxygen Delivery Me thod Nasal Cannula Oxygen Flow Rate 1 DS: Data Data Completed and Pending Completed studies during hospitalization: Procedures Drainage of Left Pleural Cavity, Percutaneous Approach, Diagnostic (04/16/23) Labs on day of discharge: Labs from last 24 hours 06/29/23 06/29/23 06/29/23 20:41 19:10 19:05 WBC 3.42 L RBC 4.75 Hgb 12.6 L Hct 38.9 MCV 82 MCH 27 MCHC 32 RDW Coeff of Shukri 21.7 H Plt Count 80 L Neut % (Auto) 77.1 H Lymph % (Auto) 1.5 L Russell % (Auto) 8.8 Eos % (Auto) 3.2 Baso % (Auto) 0.3 Neut # (Auto) 2.60 Lymph # (Auto) 0.10 L Russell # (Auto) 0.30 Eos # (Auto) 0.10 Baso # (Auto) 0.00 Abs Immat Gran (auto) 0.30 Imm/Tot Granulo (auto) 9.1 Diff Slide Review D-Dimer Quant (PE/DVT) Sodium 140 Potassium 3.8 Chloride 105 Carbon Dioxide 21 Anion Gap 14 BUN 28 Creatinine 2.1 H Estimated Creat Clear 28.99 Estimated GFR 32 Glucose 109 Hemoglobin A1c Lactate 5.1 H* Calcium 8.7 Magnesium Total Bilirubin 1.9 H Direct Bilirubin AST 55 H ALT 32 Alkaline Phosphatase 111 Troponin I 0.61 H* C-Reactive Protein 17.2 H Total Protein 5.9 L Albumin 3.5 Urine Color Urine Appearance Urine pH Ur Specific Junior Urine Protein Urine Glucose (UA) Urine Ketones Urine Blood Urine Nitrite Urine Bilirubin Urine Urobilinogen Ur Leukocyte Esterase Urine RBC Urine WBC Ur Squamous Epith Cells Amorphous Sediment Urine Bacteria CSF Volume 4.0 CSF Appearance Clear CSF Color Colorless CSF WBC 3 CSF RBC 4 CSF Mononuclear Cells 33 CSF Polynuclear WBCs 67 CSF Glucose 103 H CSF Total Protein 127 H SARS-CoV-2 (PCR) Influenza Type A (PCR) Influenza Type B (PCR) RSV (PCR) Lab Acknowledgement Test Added 06/29/23 06/29/23 06/29/23 18:55 16:37 13:23 WBC RBC Hgb Hct MCV MCH MCHC RDW Coeff of Shukri Plt Count Neut % (Auto) Lymph % (Auto) Russell % (Auto) Eos % (Auto) Baso % (Auto) Neut # (Auto) Lymph # (Auto) Russell # (Auto) Eos # (Auto) Baso # (Auto) Abs Immat Gran (auto) Imm/Tot Granulo (auto) Diff Slide Review D-Dimer Quant (PE/DVT) Sodium Potassium Chloride Carbon Dioxide Anion Gap BUN Creatinine Estimated Creat Clear Estimated GFR Glucose Hemoglobin A1c Lactate 4.5 H* 5.3 H* Calcium Magnesium Total Bilirubin Direct Bilirubin AST ALT Alkaline Phosphatase Troponin I 0.36 H* C-Reactive Protein Total Protein Albumin Urine Color Urine Appearance Urine pH Ur Specific Junior Urine Protein Urine Glucose (UA) Urine Ketones Urine Blood Urine Nitrite Urine Bilirubin Urine Urobilinogen Ur Leukocyte Esterase Urine RBC Urine WBC Ur Squamous Epith Cells Amorphous Sediment Urine Bacteria CSF Volume CSF Appearance CSF Color CSF WBC CSF RBC CSF Mononuclear Cells CSF Polynuclear WBCs CSF Glucose CSF Total Protein SARS-CoV-2 (PCR) Influenza Type A (PCR) Influenza Type B (PCR) RSV (PCR) Lab Acknowledgement Test Added 06/29/23 06/29/23 06/29/23 10:01 09:52 07:21 WBC RBC Hgb Hct MCV MCH MCHC RDW Coeff of Shukri Plt Count Neut % (Auto) Lymph % (Auto) Russell % (Auto) Eos % (Auto) Baso % (Auto) Neut # (Auto) Lymph # (Auto) Russell # (Auto) Eos # (Auto) Baso # (Auto) Abs Immat Gran (auto) Imm/Tot Granulo (auto) Diff Slide Review D-Dimer Quant (PE/DVT) 1.07 H Sodium Potassium Chloride Carbon Dioxide Anion Gap BUN Creatinine Estimated Creat Clear Estimated GFR Glucose Hemoglobin A1c Lactate 4.1 H* 3.1 H Calcium Magnesium 1.5 Total Bilirubin Direct Bilirubin AST ALT Alkaline Phosphatase Troponin I C-Reactive Protein Total Protein Albumin Urine Color [place] A Urine Appearance Clear Urine pH 5.5 Ur Specific Junior 1.010 Urine Protein Trace A Urine Glucose (UA) Trace A Urine Ketones Negative Urine Blood Trace-intact A Urine Nitrite Negative Urine Bilirubin Negative Urine Urobilinogen 0.2 Ur Leukocyte Esterase Negative Urine RBC 0-2 Urine WBC 0-2 Ur Squamous Epith Cells Few Amorphous Sediment Few A Urine Bacteria Few A CSF Volume CSF Appearance CSF Color CSF WBC CSF RBC CSF Mononuclear Cells CSF Polynuclear WBCs CSF Glucose CSF Total Protein SARS-CoV-2 (PCR) Influenza Type A (PCR) Influenza Type B (PCR) RSV (PCR) Lab Acknowledgement 06/29/23 06/29/23 07:11 06:00 WBC 1.82 L* RBC 4.84 Hgb 12.6 L Hct 39.3 MCV 81 MCH 26 MCHC 32 RDW Coeff of Shukri 21.2 H Plt Count 87 L Neut % (Auto) 66.6 Lymph % (Auto) 1.6 L Russell % (Auto) 4.4 Eos % (Auto) 8.2 H Baso % (Auto) 0.0 Neut # (Auto) 1.20 L Lymph # (Auto) 0.00 L Russell # (Auto) 0.10 Eos # (Auto) 0.10 Baso # (Auto) 0.00 Abs Immat Gran (auto) 0.30 Imm/Tot Granulo (auto) 19.2 Diff Slide Review Acceptable Review D-Dimer Quant (PE/DVT) Sodium 138 Potassium 4.4 Chloride 100 Carbon Dioxide 27 Anion Gap 11 BUN 26 Creatinine 1.6 H Estimated Creat Clear 41.76 Estimated GFR 44 Glucose 295 H Hemoglobin A1c 9.0 H Lactate Calcium 9.6 Magnesium Total Bilirubin 1.5 Direct Bilirubin 0.6 H AST 39 H ALT 30 Alkaline Phosphatase 168 H Troponin I 0.10 H* C-Reactive Protein Total Protein 7.1 Albumin 4.6 Urine Color Urine Appearance Urine pH Ur Specific Junior Urine Protein Urine Glucose (UA) Urine Ketones Urine Blood Urine Nitrite Urine Bilirubin Urine Urobilinogen Ur Leukocyte Esterase Urine RBC Urine WBC Ur Squamous Epith Cells Amorphous Sediment Urine Bacteria CSF Volume CSF Appearance CSF Color CSF WBC CSF RBC CSF Mononuclear Cells CSF Polynuclear WBCs CSF Glucose CSF Total Protein SARS-CoV-2 (PCR) Negative SARS-CoV-2 Influenza Type A (PCR) Negative PCR FLU A Influenza Type B (PCR) Negative PCR FLU B RSV (PCR) Negative PCR RSV Lab Acknowledgement New Spec Needed Preliminary micro results at discharge 06/29/23 19:05 Body Fluid Culture - Preliminary Cerebrospinal Fluid Culture in Progress 06/29/23 10:01 Urine Culture - Preliminary Urine Catheterized Culture in Progress Additional Comments Additional comments: Copies of labs and diagnostics included. Films pushed to [place] Discharge Plan Discharge Disposition: [facility] Discharge Location: [facility] Date of Admission: 06/29/23 08:23 Attending Provider on Discharge: Stephanie Reaves Primary Care Provider: Mathew Simpson Condition: Stable Discharge Orders: Transfer of Care to Other Hospital (ORDER); Ordered 06/29/23 Ordered By: Stephanie Reaves Oxygen: Yes Oxygen Delivery Method: Nasal Cannula Oxygen Flow Rate: 2.5 Urinary Catheter: Yes Drips/Lines: IV peripheral Services not available here: ICU
--- NOTE | 2023-06-30 06:13 | PC.NURSE ---
END OF SHIFT NOTE: PT OPENS EYES WHEN NAME IS SPOKEN. PT ATTEMPTS, BUT UNABLE TO SPEAK. LETHARGIC. PT IS FLUSHED AND DIAPHORETIC. TACHYPNEIC 36-40. LR IN PLACE WITH DARK BECCA OUTPUT. TMAX 105.1 (RECTAL); 106.7 (TEMPORAL) IV TYLENOL FOR TEMP ADMINISTERED. NOREPI STARTED FOR HYPOTENSION. AND DTG x2 AT BEDSIDE. LACTATE 5.1, TROPONIN 0.61; CREATININE 2.1. PT TRANSFERRED TO [place], [place] [facility]IA [facility].
--- NOTE | 2023-06-30 08:43 | REH.OT ---
OT/PT: Patient not seen by therapies due to transferred to [place] overnight.
--- NOTE | 2023-07-05 21:00 | ED.GENADULT ---
HPI - General Adult General Date Seen: 06/29/23 Chief complaint: Nausea/Vomiting Stated complaint: nausea / vomiting Time Seen by Provider: 06/29/23 05:30 Source: patient, family and EMS Mode of arrival: EMS Limitations: altered mental status History of Present Illness HPI narrative: 77 year old male brought in by EMS with concerns of vomiting and weakness. His says that he was in his usual state of health during the day yesterday. He began vomiting at around 2:00 a.m. and has gotten progressively less verbal and too weak for her to manage. His past medical history is complicated with multiple providers in the [facility] system. He has had several episodes of cough, several requiring hospitalization, in recent months. His shortness of breath had improved but he continues to have a cough. He has seen a diamond saw operator at [facility] and basically symptomatic care for the cough is all that is being currently done. He has lymphoma and pancytopenia and is under the care of a technical support 1 software engineer. They had plan to do a PET scan this was canceled because of hyperglycemia. 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 They are trying to transition to newer meds which have been cost prohibitive. His blood sugars have been in the 250-400 range. We discussed that that could be contributing to his vomiting certainly. His a history of cardiac amyloidosis and atrial fibrillation and is seeing Cardiology at [facility]. He is not currently anticoagulated but apparently there is a plan to start him back on Eliquis after the of the year. He had just seen his PCP yesterday and had labs, including a troponin, and an EKG done. It was determined that he was well enough to go home with his rather than go to the hospital. He is not having fevers. Related Data Home Medications Medication Instructions Recorded Confirmed acetaminophen 650 mg 1,300 mg PO BID 01/09/22 06/28/23 tablet,extended release diclofenac sodium 1 % topical gel 2 g topical QID PRN 03/13/22 06/28/23 (Voltaren Arthritis Pain) multivitamin (Daily Multi-Vitamin 1 tab PO DAILY 03/13/22 06/28/23 tablet) aspirin 81 mg chewable tablet 81 mg PO DAILY 07/07/22 06/28/23 nitroglycerin 0.4 mg sublingual 0.4 mg sublingual Q5M PRN 07/11/22 06/28/23 tablet acyclovir 400 mg tablet 400 mg PO BID 08/15/22 06/28/23 torsemide 20 mg tablet 20 mg PO DAILY 03/02/23 06/28/23 escitalopram oxalate 10 mg tablet 10 mg PO DAILY 04/17/23 06/28/23 (Lexapro) insulin glargine 100 unit/mL (3 30 unit subcut HS 04/17/23 06/28/23 mL) subcutaneous pen pantoprazole 40 mg tablet,delayed 40 mg PO BID 04/17/23 06/28/23 release apixaban 5 mg tablet 5 mg PO BID 06/19/23 06/28/23 dapagliflozin propanediol 10 mg 10 mg PO QDAY 06/19/23 06/28/23 tablet semaglutide 0.25 mg or 0.5 mg (2 0.25 mg subcut QWEEK 06/19/23 06/28/23 mg/3 mL) subcutaneous pen injector sodium chloride 3 % for ml inhalation 06/21/23 06/28/23 nebulization Previous Rx's Medication Instructions Recorded amoxicillin 500 mg capsule See Rx Instructions .Route 07/31/22 .COMPLEX #4 caps carvedilol 3.125 mg tablet 9.375 mg (3 x 3.125 mg) PO BID 01/16/23 #540 tabs losartan 100 mg tablet 100 mg PO DAILY #90 tabs 03/30/23 iron,carbonyl 65 mg-vitamin C 125 1 tab PO BID #60 tabs 04/21/23 mg tablet,delayed release (Vitron-C) beclomethasone dipropionate 80 1 inh inhalation BID #10.6 grams 05/22/23 mcg/actuation HFA breath activated aerosol (Qvar RediHaler) ipratropium 0.5 mg-albuterol 3 mg 3 ml inhalation QID PRN shortness 05/22/23 (2.5 mg base)/3 mL nebulization of breath or wheezing #180 mL soln codeine 10 mg-guaifenesin 100 mg/5 5 ml PO Q4-6H PRN cough #120 mL 06/05/23 mL oral liquid trazodone 50 mg tablet 25 mg (1/2 x 50 mg) PO QHS PRN 06/21/23 insomnia #45 tabs clobetasol 0.05 % topical ointment 1 applic topical BID 2 weeks #60 06/28/23 grams triamcinolone acetonide 0.1 % 1 applic topical BID PRN rash #80 06/28/23 topical cream grams Allergies Allergy/AdvReac Type Severity Reaction Status Date / Time lovastatin Allergy Severe Throat and Verified 06/28/23 11:26 chest tightness niacin Allergy Severe Throat and Verified 06/28/23 11:26 chest tightness duloxetine Allergy Intermediate throat and Verified 06/28/23 11:26 chest tightness sertraline Allergy Intermediate Dizzy, Verified 06/28/23 11:26 headaches and not right in the head methyldopa Allergy Mild Chills, Verified 06/28/23 11:26 fever Mutvwiy-QZX-MlA Reductase Allergy Verified 06/28/23 11:26 Inhibitor COVID-19 (Adenovirus) Vaccine Allergy Severe Myocarditis Uncoded 06/28/23 11:26 paper tape AdvReac Severe Takes skin Uncoded 06/28/23 11:26 off Review of Systems Narrative: Review of systems is widely positive. The patient cannot answer these questions. Most of his positive symptoms are outlined in the HPI above. [facility] Medical History (Updated 06/29/23 @ 22:58 by Stephanie Reaves PA-C) Sepsis ?A41.9 - Sepsis, unspecified organism (ICD-10) Insomnia ?G47.00 - Insomnia, unspecified (ICD-10) Elevated troponin ?R79.89 - Other specified abnormal findings of blood chemistry (ICD-10) Immunosuppression ?D84.9 - Immunodeficiency, unspecified (ICD-10) Chronic a-fib ?I48.20 - Chronic atrial fibrillation, unspecified (ICD-10) Chronic kidney disease, stage 3b ?N18.32 - Chronic kidney disease, stage 3b (ICD-10) Hypertension (04/05/12) ?I10 - Essential (primary) hypertension (ICD-10) Pancytopenia ?D61.818 - Other pancytopenia (ICD-10) Leukopenia ?D72.819 - Decreased white blood cell count, unspecified (ICD-10) CPAP (continuous positive airway pressure) dependence ?Z99.89 - Dependence on other enabling machines and devices (ICD-10) Insulin dependent diabetes mellitus with complications Anemia ?D64.9 - Anemia, unspecified (ICD-10) Urinary incontinence ?R32 - Unspecified urinary incontinence (ICD-10) Febrile neutropenia ?D70.9 - Neutropenia, unspecified (ICD-10) ?R50.81 - Fever presenting with conditions classified elsewhere (ICD-10) Cardiac dysrhythmia, unspecified ?I49.9 - Cardiac arrhythmia, unspecified (ICD-10) GI (gastrointestinal bleed) ?K92.2 - Gastrointestinal hemorrhage, unspecified (ICD-10) Depression ?F32.A - Depression, unspecified (ICD-10) BPH (benign prostatic hyperplasia) ?N40.0 - Benign prostatic hyperplasia without lower urinary tract symptoms (ICD-10) Cardiac amyloidosis ?E85.4 - Organ-limited amyloidosis (ICD-10) ?I43 - Cardiomyopathy in diseases classified elsewhere (ICD-10) Depression ?F32.A - Depression, unspecified (ICD-10) 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 ?I24.0 - Acute coronary thrombosis not resulting in myocardial infarction (ICD-10) Pleural effusion ?J90 - Pleural effusion, not elsewhere classified (ICD-10) Pleural effusion ?J90 - Pleural effusion, not elsewhere classified (ICD-10) Lymphoma ?C85.90 - Non-Hodgkin lymphoma, unspecified, unspecified site (ICD-10) Narcolepsy ?G47.419 - Narcolepsy without cataplexy (ICD-10) Weight loss ?R63.4 - Abnormal weight loss (ICD-10) Thrombocytopenia (~08/17/15) ?D69.6 - Thrombocytopenia, unspecified (ICD-10) Serum creatinine raised ?R79.89 - Other specified abnormal findings of blood chemistry (ICD-10) Osteoarthritis of multiple joints ?M15.9 - Polyosteoarthritis, unspecified (ICD-10) Fever ?R50.9 - Fever, unspecified (ICD-10) Fatigue ?R53.83 - Other fatigue (ICD-10) Edema of lower extremity ?R60.0 - Localized edema (ICD-10) Abdominal pain ?R10.9 - Unspecified abdominal pain (ICD-10) Surgical History History of percutaneous coronary intervention ?Z98.61 - Coronary angioplasty status (ICD-10) History of lumbar fusion (09/09/12) ?Z98.1 - Arthrodesis status (ICD-10) History of discectomy (~08/2016) ?Z98.890 - Other specified postprocedural states (ICD-10) Status post total hip replacement, 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) ?Z96.642 - Presence of left artificial hip joint (ICD-10) Status post tonsillectomy and adenoidectomy ?Z90.89 - Acquired absence of other organs (ICD-10) History of umbilical hernia repair ?Z98.890 - Other specified postprocedural states (ICD-10) ?Z87.19 - Personal history of other diseases of the digestive system (ICD-10) History of nasal septoplasty ?Z98.890 - Other specified postprocedural states (ICD-10) History of carpal tunnel surgery ?Z98.890 - Other specified postprocedural states (ICD-10) Family History Father Colon cancer Lung cancer Mother Diabetes FH: thyroid cancer Kidney disease High blood pressure Social History Narrative: He lives with his . He gets his specialty medical care at [facility]. He does not smoke. He does not drink alcohol. Code status is full. What is your current living situation?: I presently have a place to live Problems where you live: no known problems Problems where you live details: N/A In the past 12 months, utilities in danger of being shut off: no In past 12 months, lack of transportation kept you from medical appts, meetings, work, or getting things needed for daily living: no In the past 12 mos, have been you worried that your food would run out before you had money to buy more?: never true In the past 12 mos, the food you bought just didn't last and you didn't have money to buy more?: never true Highest level of school completed/degree received: Bachelor's degree Smoking Status: Never smoker Do you use any of these nicotine containing products: None Second hand tobacco smoke exposure: No How often do you have a drink containing alcohol: never How often do you have six or more drinks on one occasion: Never AUDIT-C Alcohol total score: 0 Non-prescribed substance use: denies use Caffeine: No How often does anyone, including family, friends and others, physically hurt you: never How often does anyone, including family, friends and others, insult or talk down to you: never How often does anyone, including family, friends and others, threaten you with harm: never How often does anyone, including family, friends and others, scream or curse at you: never Little interest or pleasure in doing things: nearly every day Feeling down, depressed, or hopeless: nearly every day service: No Exam Narrative: Exam Narrative: Vitals noted. He is intermittently tachycardic. Oxygen saturation is normal. HEENT: Conjunctiva clear. Tympanic membranes are pearly white bilaterally. Posterior pharynx is clear without erythema or exudate. Neck is supple without adenopathy, thyromegaly, carotid bruit. Lungs: Clear to auscultation in all weathers. No localizing wheezes, rales, rhonchi. Heart: Regular rate and rhythm without murmur. His heart rate is generally in the 90s but does go up into the 140s with cares and movement. Abdomen: Soft and nontender. No guarding, rigidity, rebound. Bowel sounds are normal. No palpable masses. Extremities: Trace edema. Palpable pulses. Skin: He has a red crusty rash on both legs. No sign of cellulitis. Neurologic: He falls asleep easily but does arouse. His does the talking for him. Neurologic exam is nonfocal. He moves all extremities normally. Course Course ED Course: Patient is seen and examined. Labs are ordered. I got into his [facility] EMR and read through recent notes and updated his [facility] record. He is clearly too weak to consider discharge. I will contact the hospitalist once his test results are back. We have offered Zofran and some IV fluids for now. Reevaluation(s) Reevaluation #1: Triple screen is negative. CBC shows pancytopenia which is stable. Basic metabolic panel is normal other than a creatinine of 1.6 and elevated blood sugar. LFTs are nearly normal. D-dimer is elevated. Lactate is 3.1. Chest x-ray shows infiltrates in the right upper and left lower lobes. No consolidation. Small left pleural effusion. Reevaluation #2: I discussed the case with Dr. Davis who is very familiar with the patient and kindly agrees to admit him to the hospital. He is certainly too weak to go home. He has no localizing source of infection but certainly is at risk for sepsis. A CT of his chest is pending. He is vitally stable. No further vomiting. Vital Signs Vital signs: Initial Vital Signs Temperature 99.2 F 06/29/23 05:44 Temperature Source Temporal Artery Scan 06/29/23 05:44 Pulse Rate 90 06/29/23 05:44 Respiratory Rate 22 06/29/23 05:44 Blood Pressure 152/74 H 06/29/23 05:44 Blood Pressure Mean 100 06/29/23 05:44 Blood Pressure Position Sitting 06/29/23 05:44 Pulse Oximetry 94 06/29/23 05:44 Oxygen Delivery Method Room Air 06/29/23 05:44 Vital Signs Temperature 99.2 F 06/29/23 05:44 Pulse Rate 90 06/29/23 05:44 Respiratory Rate 22 06/29/23 05:44 Blood Pressure 152/74 H 06/29/23 05:44 Pulse Oximetry 94 06/29/23 05:44 Oxygen Delivery Method Room Air 06/29/23 05:44 Temperature 104.1 F H 06/29/23 22:45 Pulse Rate 101 H 06/29/23 23:25 Respiratory Rate 38 H 06/29/23 23:25 Blood Pressure 95/56 L 06/29/23 23:25 Pulse Oximetry 95 06/29/23 23:25 Oxygen Delivery Method Nasal Cannula 06/29/23 23:25 Oxygen Flow Rate 2 06/29/23 23:25 Medications Administered Medications: Discontinued Medications Generic Name Dose Route Start Last Admin Trade Name Freq PRN Reason Stop Dose Admin Acetaminophen 650 mg 06/29/23 16:30 06/29/23 16:41 Acetaminophen 650 Mg Supp ND 06/29/23 16:31 650 mg ONCE ONE Administration Albuterol/Ipratropium 1 neb 06/29/23 17:00 06/29/23 21:00 Iprat-Albut 0.5-2.5 Mg/3 Ml Neb IH Not Given QID [facility] Beclomethasone Dipropionate 1 puff 06/29/23 21:00 06/29/23 21:00 Beclomethasone Inhaler (Qvar 80 Mcg) IH Not Given BID [facility] Enoxaparin Sodium 40 mg 06/29/23 20:45 06/29/23 22:16 Enoxaparin 40 Mg/0.4 Ml Inj SUBCUT 40 mg Q24H ELIZABETH Administration Furosemide 20 mg 06/29/23 20:39 06/29/23 22:16 Furosemide 10 Mg/Ml Inj IVP 06/29/23 20:40 20 mg ONCE ONE Administration Sodium Chloride 500 mls @ 1,000 mls/hr 06/29/23 06:06 06/29/23 06:17 0.9 % Sodium Chloride 500 Ml IV 06/29/23 06:35 Infused .Q30M ELIZABETH Infusion Lactated Ringer's 1,000 mls @ 1,000 mls/hr 06/29/23 09:29 06/29/23 09:37 Lactated Ringers 1000 Ml IV 06/29/23 10:28 1,000 mls/hr .Q1H ONE Administration Piperacillin Sod/Tazobactam 100 mls @ 200 mls/hr 06/29/23 09:45 06/29/23 22:16 Sod 3.375 gm/ Sodium Chloride IVPB 200 mls/hr Q6H ELIZABETH Administration Vancomycin HCl 2,000 mg/ 520 mls @ 260 mls/hr 06/29/23 09:33 06/29/23 11:12 Sodium Chloride IVPB 06/29/23 09:34 260 mls/hr ONCE ONE Administration Protocol Lactated Ringer's 1,000 mls @ 125 mls/hr 06/29/23 13:20 06/29/23 22:21 Lactated Ringers 1000 Ml IV 125 mls/hr .Q8H ELIZABETH Administration Magnesium Sulfate 2 gm in 50 mls @ 25 mls/hr 06/29/23 13:18 06/29/23 13:56 Magnesium Iv IVPB 06/29/23 15:17 25 mls/hr ONCE ONE Administration Lactated Ringer's 500 mls @ 500 mls/hr 06/29/23 16:37 06/29/23 17:06 Lactated Ringers 500 Ml IV 06/29/23 17:36 500 mls/hr .Q1H ONE Administration Lactated Ringer's 500 mls @ 250 mls/hr 06/29/23 20:29 06/29/23 20:40 Lactated Ringers 500 Ml IV 06/29/23 22:28 250 mls/hr .Q2H ONE Administration Acetaminophen 1,000 mg in 100 mls @ 400 mls/hr 06/29/23 20:49 06/29/23 21:47 Ofirmev IVPB 400 mls/hr Q6H PRN Administration Fever Norepinephrine/Dextrose 4,000 mcg in 250 mls @ 35.891 mls/hr 06/29/23 23:06 06/29/23 23:23 Norepinephrine 4 Mg/250 Ml IV 0.15 mcg/kg/min CONT PRN 53.84 mls/hr Hypotension Titration Protocol 0.1 MCG/KG/MIN Insulin Aspart 0 unit 06/29/23 17:30 06/29/23 17:51 Insulin Aspart 100 Unit/Ml SUBCUT Not Given ACHS [facility] Protocol Insulin Detemir 15 unit 06/29/23 21:00 06/29/23 22:00 Insulin Detemir (Levemir) 100 Unit/Ml SUBCUT Not Given BID [facility] Metoprolol Tartrate 5 mg 06/29/23 09:04 06/29/23 09:37 Metoprolol Tartrate 1 Mg/Ml Inj IVP 06/29/23 09:05 5 mg ONCE ONE Administration Ondansetron HCl 4 mg 06/29/23 05:58 06/29/23 06:03 Ondansetron 2 Mg/Ml Inj IVP 06/29/23 05:59 4 mg ONCE ONE Administration Sodium Chloride 5 ml 06/29/23 21:00 06/29/23 22:21 Sodium Chloride 0.9 % (Flush) 10 Ml Syringe IVF 5 ml BID ELIZABETH Administration Sodium Chloride 3 neb 06/29/23 17:00 06/29/23 21:00 Sodium Chloride 3% Neb 4 Ml IH Not Given QID [facility] Medical Decision Making Lab Data Labs: Lab Results 06/29/23 06/29/23 06/29/23 Range/Units 06:00 07:11 07:21 WBC 1.82 L* (4.50-11.00) K/uL RBC 4.84 (4.30-5.90) m/uL Hgb 12.6 L (13.5-17.5) gm/dL Hct 39.3 (37.0-53.0) % MCV 81 (80-100) fL MCH 26 (26-34) pg MCHC 32 (32-36) gm/dL RDW Coeff of Shukri 21.2 H (11.5-15.5) % Plt Count 87 L (140-440) K/uL Neut % (Auto) 66.6 (42.0-72.0) % Lymph % (Auto) 1.6 L (20-44) % [place] % (Auto) 4.4 (0.0-11.0) % Eos % (Auto) 8.2 H (0.0-7.0) % Baso % (Auto) 0.0 (0.0-3.0) % Neut # (Auto) 1.20 L (1.7-7.0) K/uL Lymph # (Auto) 0.00 L (0.90-2.90) K/uL [place] # (Auto) 0.10 (0.00-0.90) K/UL Eos # (Auto) 0.10 (0.00-0.50) K/uL Baso # (Auto) 0.00 (0.00-0.30) K/uL Abs Immat Gran (auto) 0.30 (0.00-0.30) K/uL Imm/Tot Granulo (auto) 19.2 % Diff Slide Review Acceptable Review (Acceptable) Sodium 138 (135-149) mmol/L Potassium 4.4 (3.6-5.1) mmol/L Chloride 100 (96-114) mmol/L Carbon Dioxide 27 (20-32) mmol/L Anion Gap 11 (7-15) mEq/L BUN 26 (7-30) mg/dL Creatinine 1.6 H (0.5-1.5) mg/dL Estimated Creat Clear 41.76 Estimated GFR 44 ml/min Glucose 295 H (60-115) mg/dL Hemoglobin A1c 9.0 H (0-5.6) % Lactate 3.1 H (0.5-1.9) mmol/L Calcium 9.6 (8.4-10.6) mg/dL Total Bilirubin 1.5 (0.1-1.5) mg/dL Direct Bilirubin 0.6 H (0.0-0.5) mg/dL AST 39 H (12-35) U/L ALT 30 (4-50) U/L Alkaline Phosphatase 168 H (40-150) U/L Troponin I 0.10 H* (0.01-0.04) ng/mL Total Protein 7.1 (6.0-8.3) g/dL Albumin 4.6 (3.3-5.0) g/dL SARS-CoV-2 (PCR) Negative SARS-CoV-2 (Negative) Influenza Type A (PCR) Negative PCR FLU A (Negative) Influenza Type B (PCR) Negative PCR FLU B (Negative) RSV (PCR) Negative PCR RSV (Negative) Lab Acknowledgement New Spec Needed Discharge Plan Discharge Clinical Impression: Uncontrolled type 2 diabetes mellitus, Longstanding persistent atrial fibrillation, Weakness, Vomiting Patient Disposition: Admitted As Inpatient Condition: Stable
--- NOTE | 2023-07-12 09:47 | W.ANESCHARGE ---
Anesthesia Charges Start Date/Time Anesthesia Start Date: 06/29/24 Anesthesia Start Time: 20:00 Stop Date/Time Anesthesia Stop Date: 06/29/24 Anesthesia Stop Time: 20:15
--- NOTE | 2023-07-16 07:24 | PM.PRCPDLP ---
Lumbar Puncture Procedure Performed by:: JAE Time Seen by Provider: 18:15 Date Seen: 06/29/23 Date of procedure: 06/29/23 Consent signed by: Stephanie Reaves was in room with gloves on helping to collect fluid Position: lateral decubitus Prep: chlorhexidine Anesthesia: 2% Lidocaine Sedation: none Needle size: other (24) Needle length: 3.5 Interspace: L3-4 Number of attempts: 2 Fluids mLs collected: 4 Fluid description: clear Complications: No Comments: Report from Stephanie Reaves on need for LP, procedure was done in room. Stephanie was present with gloves on helping collect sample. Very difficult to get patient in position. 2 attempts needed to get needle in place. 24g PP. Fluid was handled and labeled by Stephanie Reaves Procedure performed by: Phoenix Sorensen Condition: stable
== END 2023-06-29 23:38 | disposition short-term general hospital (02) | DRG 871 ==
LOC: ED 07:59 → MEDSURG 08:26
PROVIDERS: Physician Assistant; Admitting Provider Family Medicine; Emergency Provider Family Medicine; PCP Family Medicine; Visit Provider Family Medicine
DX: A41.9 Sepsis, unspecified organism (principal); D61.810 Antineoplastic chemotherapy induced pancytopenia; N17.9 Acute kidney failure, unspecified; I48.11 Longstanding persistent atrial fibrillation; D84.9 Immunodeficiency, unspecified; C85.90 Non-Hodgkin lymphoma, unspecified, unspecified site; E85.4 Organ-limited amyloidosis; I43 Cardiomyopathy in diseases classified elsewhere; E11.65 Type 2 diabetes mellitus with hyperglycemia; Z79.4 Long term (current) use of insulin; R11.2 Nausea with vomiting, unspecified; I12.9 Hypertensive chronic kidney disease with stage 1 through stage 4 chronic kidney disease, or unspecified chronic kidney disease; E11.22 Type 2 diabetes mellitus with diabetic chronic kidney disease; N18.32 Chronic kidney disease, stage 3b; Z99.89 Dependence on other enabling machines and devices; I25.10 Atherosclerotic heart disease of native coronary artery without angina pectoris; R79.89 Other specified abnormal findings of blood chemistry; T45.1X5A Adverse effect of antineoplastic and immunosuppressive drugs, initial encounter; D70.1 Agranulocytosis secondary to cancer chemotherapy; R53.1 Weakness; F32.A Depression, unspecified
CPT/HCPCS: 00635; 36415; 51701; 62270; 70450; 71045; 71046; 71260; 74177; 76705; 80048; 80053; 80076; 81003; 81015; 82945; 82962; 83036; 83605; 83735; 83880; 84157; 84484; 85025; 85379; 86140; 87040; 87070; 87086; 87631; 89051; 94640; 94761; 99284; 99285; A9270; J0131; J1650; J1940; J2405; J2543; J3370; J3475; J7120; Q9967

== ENCOUNTER 2023-06-29 23:25 | Outpatient (CLI) | payer MEDICARE, OTHER, SELFPAY ==
--- OUTSIDE RECORDS SUMMARY | 2023-07-12 17:37 | XMS_ITS | Clinical Summary ---
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 0 08/21/2015 Active acetaminophen (TYLENOL EXTRA STRENGTH) 500 mg tabletIndications :Spinal stenosis of lumbar region Take 1 tablet by mouth every 6 hours. Max acetaminophen dose: 4000mg in 24 hrs. 100 tablet 0 08/30/2015 Active multivitamin (MULTIPLE VITAMINS) tablet Take 1 tablet by mouth once daily. 0 05/29/2018 Active insulin glargine (LANTUS SOLOSTAR PEN; BASAGLAR KWIKPEN) 100 unit/mL (3 mL) pen Inject 60 Units subcutaneous once daily. 0 08/03/2017 Active hydroCHLOROthiazi de 12.5 mg tablet Take 1 tablet by mouth. 0 10/05/2014 Active digoxin (LANOXIN) 125 mcg tablet Take 125 mcg by mouth once daily. 0 02/10/2018 Active carvedilol (COREG) 25 mg tablet Take 25 mg by mouth 2 times daily. 0 05/08/2018 Active warfarin (COUMADIN) 5 mg tablet Take 5 mg by mouth once daily. 0 02/26/2018 Active mometasone (NASONEX) (50 mcg each actuation) nasal spray Inhale 2 Sprays in the nostril(s) once daily. 0 Active Fhiol-9-KFQ-EPA-F yahaira Oil 500-1,000 mg cap Take 1,000 mg by mouth once daily. 0 Active Coenzyme Q10 10 mg cap Take 1 capsule by mouth once daily. 0 Active Cholecalciferol, Vitamin D3, 2,000 unit tablet Take 5,000 Units by mouth once daily. 0 Active cyanocobalamin 1,000 mcg tablet Take 1,000 mcg by mouth once daily. 0 Active modafiniL (PROVIGIL) 100 mg tablet 0 01/07/2022 Active Active Problems Problem Noted Date Diagnosed Date Somnolence 08/25/2015 HILARY (acute kidney injury) 08/25/2015 Leukocytosis 08/25/2015 Encephalopathy 08/25/2015 Fever postop 08/19/2015 Spinal stenosis of lumbar region 08/19/2015 Thrombocytopenia 08/17/2015 Obesity, Class II, BMI 35-39.9 08/16/2015 Overactive bladder 08/06/2015 Hyperlipidemia 08/06/2015 Right BBB/left ant fasc block 08/06/2015 CKD (chronic kidney disease) stage 3, GFR 30-59 ml/min 08/06/2015 Type 2 diabetes, controlled, with neuropathy Overview: diagnosis approximately 2004 lower extremity neuropathy erectile dysfunction 08/2015 A1c 6.1 Erectile dysfunction 04/25/2013 Hypertension 04/25/2013 TASHA on CPAP 04/25/2013 Non Hodgskin Lymphoma Overview: Linoleum Tile Layer/oncologist: Dr. Mcleod Diagnosis 2005, relapse 2008 Chemotherapy, last 2012 CAD (coronary artery disease) Overview: s/p stent placement (09/22/11) distal LAD A-fib Overview: Isolated episode after stent placement Resolved Problems Problem Noted Date Diagnosed Date Resolved Date Dyslipidemia 04/25/2013 08/12/2015 Gout 08/06/2015 Lymphoma 08/12/2015 Overview: in active treatment Encounters Date Type Department Care Team Description 05/25/2023 7:00 PM SHEEP BONER Orders Only [facility] at [facility] [address] [place] [address] 2 scans: (2-Ord) ECHO TTE COMPLETE WO CONTRAST ([id number]) 04/18/2023 Lab Requisition [facility] [phone] Unknown, Doctor from Last 3 Months Immunizations Name Administration Dates Next Due Influenza, IIV3 (Age >=3 years) 04/25/2013 Influenza, IIV4 04/08/2015 Family History Medical History Relation Name Comments Thyroid Disease Mother cancer Thyroid Disease Sister cancer Relation Name Status Comments Mother Sister Social History Tobacco Use Types Packs/Day Years Used Date Smoking Tobacco: Never Smokeless Tobacco: Never Tobacco Cessation:Counseling Given: Yes Alcohol Use Standard Drinks/Week Comments Yes 0 (1 standard drink = 0.6 oz pure alcohol) sometimes with a pizza (1-2 times a month) Social Connections Answer Date Recorded Frequency of Communication with Friends and Fami ly Not on file 01/30/2022 Sex and Gender Information Value Date Recorded Sex Assigned at Not on file Gender Identity Not on file Sexual Orientation Not on file Obstetrics History Last Filed Vital Signs Vital Sign Reading Time Taken Comments Blood Pressure 149/68 01/30/2022 1:29 PM CDT Pulse 60 04/03/2022 1:01 PM CDT Temperature 36.7 ??C (98.1 ??F) 04/03/2022 1:01 PM CD T Respiratory Rate 16 03/09/2017 2:25 PM CDT Oxygen Saturation 98% 04/03/2022 1:01 PM CDT Inhaled Oxygen Concentration - - Weight 97.3 kg (214 lb 6.4 oz) 04/03/2022 1:01 P M CDT Height 177.8 cm (5' 10) 08/25/2015 5:45 PM SHEEP BONER Body Mass Index 30.76 08/25/2015 5:45 PM SHEEP BONER Plan of Treatment Health Maintenance Due Date Last Done Comments Pneumococcal series for age 65+ (1 of 2 - PCV) 1950 Tdap 10/22/1955 Depression screening for age 12+ 1956 Hepatitis C screening for age 18-79 1962 Zoster (shingles) series for age 50+ (1 of 2) 10/22/1963 Tetanus booster 1964 Medicare Wellness for age 65+ 2009 BMI (ht and wt on same day) for age 18+ 08/06/2016 08/06/2015 COVID-19 vaccine series ( season) 2023 04/29/2021, 09/04/2020, 08/14/2020 Influenza for age 65+ 03/02/2023 04/08/2015, 013 Medical Devices Implanted Type Area Seo Manager Device Identifier Shelf Expiration Date Model / Serial / Lot Dura 1x1in Duragen Plus Non-Schaeffer - [id number] Implanted:Qty: 1 on 08/16/2015 by Maribel Hernandez, [facility] at N/A: Sp[employer] [id number] / / [id number] Procedures Procedure Name Priority Date/Time Associated Diagnosis Comments ECHO TTE COMPLETE WO CONTRAST Routine 05/25/2023 5:32 PM SHEEP BONER Amyloid heart disease (HC) Shortness of breath LAB TRACKING EVENT Routine 04/18/2023 6: 00 AM CDT PATH NON INTERACTIVE PROJECT MANAGER CYTOLOGY Routine 04/18/2023 12:15 AM CDT from Last 3 Months Results * ECHO TTE COMPLETE WO CONTRAST (05/25/2023 5:32 PM SHEEP BONER) AORTIC VALVE MEAN PG 19 mmHg EJECTION FRACTION 61 % PEAK TR VELOCITY 2.6 m/s LVEDD 4.5 cm EJECTION FRACTION 60 - 65% Anatomical Region Laterality Modality Ultrasound 05/25/2023 4:57 PM SHEEP BONER Narrative 05/28/2023 7:21 AM SHEEP BONER ECHOCARDIOGRAM BARTOLOME ARRIAGA ? Accession#: ?? [id number] : ?1945 77 years Study Date: ?? 05/25/2023 4:57:40 PM Gender: M ?BP: ? 140/69 mmHg Height: 178.00 cm ?BSA: ?2.09 m? ? ? Weight: 91.00 kg ? Tech: ? MJW ? Referring MD: ZAHRA DAVIS Site: ? [facility] Reading Location: [facility] Patient Location: Outpatient. Procedure: 2D, Color Doppler and Spectral Doppler. Indication for study: Amyloidosis, Pnuemonia, SOB Cardiac Rhythm: Regular.Study quality: Imaging limitations: This study was subject to imaging limitations due to a prominent lung artifact. Final Impressions: 1. Normal LV size, severely increased wall thickness, normal global systolic function with an estimated EF of 60 - 65%. 2. Grade 2 high left atrial pressure pattern of LV diastolic filling. Low e' velocities consistent with known diagsnosis of cardiac amyloidosis. 3. Right ventricular cavity size is normal, global systolic RV function is normal. 4. Mildly enlarged left atrium. 5. The aortic valve is trileaflet and sclerotic, mild to moderate stenosis (mean gradient 19 mmHg, SUNDAR 1.43 cm^2, DI 0.37, SVI 35 ml/m^2) and no regurgitation. 6. The mitral valve is sclerotic, no mitral regurgitation. 7. Trace tricuspid regurgitation with an estimated RVSP of 27 mmHg plus the RA pressure. 8. IVC geometry compatible with a normal estimated RA pressure (3 mmHg). 9. Trivial pericardial effusion. Comparison Compared to prior exam of 11/18/2021: - some progression noted in severity. Chamber Sizes and Function Normal left ventricular size, severely increased wall thickness, normal global systolic function with an estimated EF of 60 - 65%. Left atrial size is mildly enlarged. Right ventricular cavity size is normal, global systolic RV function is normal. RV wall thickness is normal. The right atrium is mildly enlarged. Right atrial volume index is 25 ml/m? ? ?. Right atrial area is 18 cm? ? ?. The pulmonary artery is of normal size and origin. The sinus of Valsalva is normal sized. The ascending aorta is normal sized. Valves, RV Pressures and Diastolic Function The aortic valve is trileaflet and sclerotic, mild to moderate stenosis and no regurgitation. The mitral valve is sclerotic, no mitral regurgitation. Spectral Doppler shows Grade 2 pattern of LV diastolic filling. The tricuspid valve is normal in structure. Tricuspid regurgitation is trace regurgitation. The tricuspid regurgitant velocity is 2.6 m/s, the estimated right ventricular systolic pressure is 27 mmHg plus right atrial pressure. The pulmonic valve is normal. No pulmonary regurgitation. Masses, Effusion, Shunts There is trivial pericardial effusion. The inferior vena cava is normal sized, respiratory size variation greater than 50%. No left to right shunting was detected by limited color flow Doppler interrogation of the interatrial septum. MEASUREMENTS AND CALCULATIONS 2-D Measurements and LV Function: LVID (d) 4.5 cm LV FS% (2D) ?? 20 % LVID (s) 3.6 cm LVOT diameter 2.1 cm IVS (d) ??1.8 cm HR ?76 bpm LVPW (d) 1.8 cm LA Vol index ??35 ml/m2 Ao Sinus 3.4 cm RA Vol index ??25 ml/m2 Asc Ao ?? 3.8 cm RA area ? 18 cm? ? ? LA ? 5.4 cm RV Max 4C (d) 4.1 cm Diastology: Mitral ?Tissue Doppler E Peak 1.6 m/s ??e', Septum ? 0.05 m/s A Peak 1.1 m/s ??e', Lateral ?0.05 m/s E/A ?1.4 ?E/e' Average ?? 32.24 DT ? 273 msec Aortic Valve: Vmax ? 2.8 m/s ??SUNDAR (V) ?? 1.43 cm? ? ? VTI ?0.56 m ?? SUNDAR (I) ?? 1.33 cm? ? ? LVOT V max ? 1.1 m/s ??Max PG ?30 mmHg LVOT VTI ? 0.21 m ?? Mean PG ?? 19 mmHg SV ? 74 ml ?Dim Index 0.37 SV index ? 35 ml/m? ? ? CO ?5.6 l/min AV Ejection Time 0.27 sec CI ?2.7 l/min/m? ? ? AV Flow Rate ? 271 ml/s Mitral Valve: MVA ?2.8 cm? ? ? MV P 1/2 79 msec Tricuspid Valve and estimated PA pressures: TR Vmax 2.6 m/s TAPSE 2.2 cm TR maxG 27 mmHg . This study was interpreted by an [facility] accredited facility. CC: Med/Surg - IP [facility], [facility] (med records) [facility]. ??Final ?? Procedure Note Timbo Figueroa MD - 05/28/2023 ECHOCARDIOGRAM BARTOLOME ARRIAGA : 1945 77 years Study Date: 05/25/2023 4:57:40 PM Gender: M BP: 140/69 mmHg Height: 178.00 cm BSA: 2.09 m? ? ? Weight: 91.00 kg Tech: ROSARIO Referring MD: ZAHRA DAVIS Site: [facility] Reading Location: [facility] Patient Location: Outpatient. Procedure: 2D, Color Doppler and Spectral Doppler. Indication for study: Amyloidosis, Pnuemonia, SOB Cardiac Rhythm: Regular.Study quality: Imaging limitations: This study was subject to imaging limitations due toa prominent lung artifact. Final Impressions: 1. Normal LV size, severely increased wall thickness, normal globalsystolic function with an estimated EF of 60 - 65%. 2. Grade 2 high left atrial pressure pattern of LV diastolic filling. Lowe' velocities consistent with known diagsnosis of cardiac amyloidosis. 3. Right ventricular cavity size is normal, global systolic RV functionis normal. 4. Mildly enlarged left atrium. 5. The aortic valve is trileaflet and sclerotic, mild to moderatestenosis (mean gradient 19 mmHg, SUNDAR 1.43 cm^2, DI 0.37, SVI 35 ml/m^2)and no regurgitation. 6. The mitral valve is sclerotic, no mitral regurgitation. 7. Trace tricuspid regurgitation with an estimated RVSP of 27 mmHg plusthe RA pressure. 8. IVC geometry compatible with a normal estimated RA pressure (3mmHg). 9. Trivial pericardial effusion. Comparison Compared to prior exam of 11/18/2021: - some progression noted in severity. Chamber Sizes and Function Normal left ventricular size, severely increased wall thickness, normalglobal systolic function with an estimated EF of 60 - 65%. Left atrialsize is mildly enlarged. Right ventricular cavity size is normal, globalsystolic RV function is normal. RV wall thickness is normal. The rightatrium is mildly enlarged. Right atrial volume index is 25 ml/m? ? ?. Rightatrial area is 18 cm? ? ?. The pulmonary artery is of normal size and origin.The sinus of Valsalva is normal sized. The ascending aorta is normalsized. Valves, RV Pressures and Diastolic Function The aortic valve is trileaflet and sclerotic, mild to moderate stenosisand no regurgitation. The mitral valve is sclerotic, no mitralregurgitation. Spectral Doppler shows Grade 2 pattern of LV diastolicfilling. The tricuspid valve is normal in structure. Tricuspidregurgitation is trace regurgitation. The tricuspid regurgitant velocityis 2.6 m/s, the estimated right ventricular systolic pressure is 27 mmHgplus right atrial pressure. The pulmonic valve is normal. No pulmonaryregurgitation. Masses, Effusion, Shunts There is trivial pericardial effusion. The inferior vena cava is normalsized, respiratory size variation greater than 50%. No left to rightshunting was detected by limited color flow Doppler interrogation of theinteratrial septum. MEASUREMENTS AND CALCULATIONS 2-D Measurements and LV Function: LVID (d) 4.5 cm LV FS% (2D) 20 % LVID (s) 3.6 cm LVOT diameter 2.1 cm IVS (d) 1.8 cm HR 76 bpm LVPW (d) 1.8 cm LA Vol index 35 ml/m2 Ao Sinus 3.4 cm RA Vol index 25 ml/m2 Asc Ao 3.8 cm RA area 18 cm? ? ? LA 5.4 cm RV Max 4C (d) 4.1 cm Diastology: Mitral Tissue Doppler E Peak 1.6 m/s e', Septum 0.05 m/s A Peak 1.1 m/s e', Lateral 0.05 m/s E/A 1.4 E/e' Average 32.24 DT 273 msec Aortic Valve: Vmax 2.8 m/s SUNDAR (V) 1.43 cm? ? ? VTI 0.56 m SUNDAR (I) 1.33 cm? ? ? LVOT V max 1.1 m/s Max PG 30 mmHg LVOT VTI 0.21 m Mean PG 19 mmHg SV 74 ml Dim Index 0.37 SV index 35 ml/m? ? ? CO 5.6 l/min AV Ejection Time 0.27 sec CI 2.7 l/min/m? ? ? AV Flow Rate 271 ml/s Mitral Valve: MVA 2.8 cm? ? ? MV P 1/2 79 msec Tricuspid Valve and estimated PA pressures: TR Vmax 2.6 m/s TAPSE 2.2 cm TR maxG 27 mmHg . This study was interpreted by an [facility] accredited facility. CC: Med/Surg - IP [facility], [facility] (med [facility]) [facility]. Final Zahra Davis MD ECHO ORD * LAB TRACKING EVENT (04/18/2023 6:00 AM CDT) Other (Other) Client Collect / Unknown 04/18/2023 6:00 AM CDT 04/18/2023 9:03 PM CDT Doctor Unknown LAB BILL ONLY [facility] [address] [place] [address], * PATH NON INTERACTIVE PROJECT MANAGER CYTOLOGY (04/18/2023 12:15 AM CDT) Case Report Medical Cytology Report ? Case: [id number] ? Authorizing Provider: ??Unknown, Doctor ?Collected: ? 04/18/2023 0015 ? Ordering Location: ? [facility] ?Received: ?04/19/2023 0741 ? Pathologist: ? Amanda Tejeda ? Darline, MD ? Specimen: ? 04/20/2023 9:43 AM CDT [facility]-C ENTRAL LABORATORY Final Diagnosis RECURRENT PLEURAL EFFUSION, FLUID FOR CYTOLOGY: Negative for malignancy 04/20/2023 9:43 AM CDT [facility]AL [facility]AT[facility] Comment A GMS was ordered on this specimen at the time of the procedure. According to lab protocol, the stain has NOT been performed based on clinical history and microscopic evaluation.?? If GMS testing is still desired please contact the laboratory at [phone]. 04/20/2023 9:43 AM CDT [facility] Gross Description A) SOURCE: Pleural fluid The specimen consists of 6 cc of dark yellow clear fluid from which the following is prepared: ? -1 DiffQuik stained slide ? -1 Papanicolaou stained ThinPrep slide ? -1 H&E stained cell block slide A2 Cell block material was placed in formalin at 1002 on 04/19/23 and fixed in formalin at least 6 hours and no more than 72 hours. 04/20/2023 9:43 AM CDT [facility] Clinical Pathology Correlation The patient is a 77 y.o. male with cardiac amyloidosis, follicular lymphadenopathy, acute neutropenic fever, and recurrent pleural effusion. 04/20/2023 9:43 AM CDT [facility] Microscopic Description Specimen adequacy: Adequate for interpretation. All slides were reviewed. The microscopic appearance substantiates the diagnosis. 04/20/2023 9:43 AM CDT [facility] Additional Information Cytology is screened at [facility], Central Laboratory - [address] [address] [facility] - [address] [place] [address] and [facility] - [address] [place] [address] Interpreted at [facility] - [address], [place] [address] 04/20/2023 9:43 AM CDT [facility] Other 04/18/2023 12:1 5 AM CDT 04/19/2023 7:41 AM CDT Doctor Unknown PATHOLOGY/CYTOLOGY [facility] [address] [place] [address], from Last 3 Months Advance Directives Documents on File Type Date Recorded Patient [employer] Expl anation POLST 09/09/2015 2:36 PM 08/23/2015 Latest Code Status on File Code Status Date Activated Date Inactivated Comments Full Code 08/25/2015 7:13 PM 08/30/2015 2:24 PM Code Status History Code Status Date Activated Date Inactivated Comments Full Code 08/16/2015 4:51 PM 08/21/2015 9:19 PM Full Code 08/16/2015 6:14 AM 08/16/2015 4:51 PM Question Answer Comments Code Status Discussion: Not Discussed Care Teams Geothermal Operations Engineer Relationship Specialty Start Date End Date Mathew Simpson MD [address] [place] [address] PCP - General Family Practice 05/09/17
== END 2023-06-29 23:26 | disposition home or self-care (01) ==
LOC: AMB 07-12 17:35
PROVIDERS: PCP Family Medicine; Visit Provider Family Medicine
DX: A41.9 Sepsis, unspecified organism (principal); R53.1 Weakness
CPT/HCPCS: A0425; A0434